=== PATIENT | female | born 1940 | race African-American/Black ===

== ENCOUNTER 2016-08-06 19:36 | Inpatient (IN) | payer MEDICARE, OTHER ==
[~2016-08-06] VITALS: Ht 167.6 cm; Wt 90.9 kg
[~2016-08-06 19:36] MED LIST: ALBU0.08 NEB; AMIO200T PO; ARIC10TA PO; ASPI-110 PO; BAZACRE TOP; CARV3.125 PO; DIFL100T PO; DULC10SU3 PR; DULC5TAB PO; FLEEENE3 PR; FURO1TAB60 PO; LOPE2TAB3 PO; LOSA25TA PO; LOVA40TA PO; MILKSUS PO; MULTTAB62 PO; NORC5TAB PO; NOVOINJ2 SQ; NOVOINJ3 SQ; NYST1000 SWISH-SWAL; POTA10CA PO; TYLE325T PO; ZOFR4TAB PO
[2016-08-06 19:37] VITALS: BP 180/80; PULSE 66; RESP 18; TEMP 98.2; O2SAT 97
[2016-08-06 19:43] VITALS: RESP 18; O2SAT 97
[2016-08-06] MEDS ORDERED: SODIUM CHLORIDE 0.9% FLUSH 5 ML FLUSH IVF PRN (19:45)
--- NOTE | 2016-08-06 19:49 | PD ---
HPI Chief Complaint: Syncope/Near-Syncope Time Seen by Provider: 19:41 Travel History International Travel<30 days: No Contact w/Intl Traveler<30days: No Traveled to known affect area: No History of Present Illness HPI The patient is 76 years old. She arrives from a cardiac rehabilitation center evidently recently undergone CABG. Over the last 3 days she has syncopized twice, both times while on the toilet. Per staff she "just slumped over." She notes what she thinks may have been some diaphoresis prior to the losses of consciousness. Otherwise she notes feeling asymptomatic prior to and after the syncope events. She has been feeling reasonably well/as expected since CABG procedure. Appetite and activity have been as expected as have been bowel and bladder habits. EMS notes significant personnel observed hypotension on scene with a systolic blood pressure of 74. EMS notes a blood pressure approximately 112 systolic on scene with a heart rate in the 80s. Fingerstick glucose was normal. The patient appeared to be in no distress. The bedside she has no specific complaint. PFSH Past Medical History Hx Anticoagulant Therapy: Yes (81 MG ASA) Autoimmune Disease: No Blood Disorders: No Heart Rhythm Problems: No Cancer: No Cardiovascular Problems: Yes (CABG) High Cholesterol: No Chemotherapy: No Chest Pain: No Congestive Heart Failure: No Cerebrovascular Accident: Yes Coronary Artery Disease: Yes Dementia: Yes Diabetes: Yes Diminished Hearing: No Endocrine: Yes (DIABETES) GERD: Yes Glaucoma: No Genitourinary: No Headaches: Yes Hepatitis: No Hiatal Hernia: No Hypertension: Yes Immune Disorder: No Musculoskeletal: Yes (ARTHRITIS right side) Psychiatric: No Reproductive: No Respiratory: No Myocardial Infarction: No Radiation Therapy: No Thyroid Disease: No Past Surgical History Abdominal Surgery: Yes (GALLBLADDER,LAP 1994) AICD: No Body Medical Devices: HARDWARE KNEE AND THIGH Cardiac Surgery: No Coronary Artery Bypass Graft: Yes Ear Surgery: No Endocrine Surgery: No Eye Surgery: Yes (CATARACTS 2003,RETINA LT EYE,LASER SURGERY BOTH EYES 2004) Genitourinary Surgery: No Gynecologic Surgery: Yes (3 D/C 30YRS AGO) Joint Replacement: No Oral Surgery: No Pacemaker: No Thoracic Surgery: No Other Surgery: Yes Social History Alcohol Use: No Tobacco Use: No Substance Use: No Allergies-Medications (Allergen,Severity, Reaction): Coded Allergies: Alayna (Verified Allergy, Severe, CONFUSION,SLUURED WORDS, 08/06/16) *MDRO Multi-Drug Resistant Organism (Verified Adverse Reaction, Unknown, ) MDR-k.pneumoniae (urine-07/04/16) Reported Meds & Prescriptions Reported Meds & Active Scripts Active Reported Carson (Hydrocodone-Acetaminophen) 5-325 mg Tab 1 Tab PO Q4H PRN Aspirin 81 Mg Tabdr 81 Mg PO DAILY Seroquel (Quetiapine Fumarate) 25 Mg Tab 25 Mg PO BID Santyl Topical (Collagenase) 250 Unit/Gm Oint 1 Applic TOPICAL DAILY Nystatin-Triamcinolone 100,000-0.1 Unit/Gm Cream 1 Applic TOPICAL BID Novolog Mix 70-30 FlexPen Inj (Insulin Aspart Protam-Asp 70-30 Inj) 300 Unit/3 Ml Pen 10 Units SQ BIDAC Loperamide (Loperamide HCl) 2 Mg Tab 2 Mg PO BID PRN 3 Days Zofran (Ondansetron HCl) 4 Mg Tab 4 Mg PO Q8HR PRN Multi-Vitamin/Minerals (Multiple Vitamins W/ Minerals) 1 Tab Tab 1 Tab PO DAILY Lovastatin 40 Mg Tab 40 Mg PO HS Aricept (Donepezil) 10 Mg Tab 10 Mg PO HS Losartan (Losartan Potassium) 25 Mg Tab 25 Mg PO DAILY Potassium Chloride ER (Potassium Chloride) 10 Meq Cap 20 Meq PO BID Lasix (Furosemide) 40 Mg Tab 40 Mg PO DAILY Coreg (Carvedilol) 3.125 Mg Tab 6.25 Mg PO BID Dulcolax DR (Bisacodyl) 5 Mg Tabdr 10 Mg PO DAILY PRN Albuterol Neb (Albuterol Sulfate) 2.5 Mg/3 Ml Neb 2.5 Mg NEB Q4HR PRN Tylenol (Acetaminophen) 325 Mg Tab 650 Mg PO Q4H PRN Milk of Magnesia Liq (Magnesium Hydroxide) 400 Mg/5 Ml Susp 30 Ml PO DIRECTED PRN Dulcolax Supp (Bisacodyl) 10 Mg Supp 10 Mg OK DAILY PRN Review of Systems Except as stated in HPI: all other systems reviewed are Neg Cardiovascular: Positive: Syncope Physical Exam Narrative GENERAL: Pleasant 76-year-old female well-nourished well-developed no acute distress SKIN: Warm and dry. Well-Approximated well healing midsternal surgical incision site. HEAD: Atraumatic. Normocephalic. EYES: Pupils equal and round. No scleral icterus. No injection or drainage. ENT: No nasal bleeding or discharge. Mucous membranes pink and moist. NECK: Trachea midline. No JVD. CARDIOVASCULAR: Regular rate and rhythm. No murmur appreciated. RESPIRATORY: No accessory muscle use. Clear to auscultation. Breath sounds equal bilaterally. GASTROINTESTINAL: Abdomen soft, non-tender, nondistended. Hepatic and splenic margins not palpable. MUSCULOSKELETAL: No obvious deformities. No clubbing. No cyanosis. No edema. NEUROLOGICAL: Awake and alert. No obvious cranial nerve deficits. Motor grossly within normal limits. Normal speech. PSYCHIATRIC: Appropriate mood and affect; insight and judgment normal. Data Data Last Documented VS Vital Signs Date Time Temp Pulse Resp B/P Pulse Ox O2 Delivery O2 Flow Rate FiO2 08/06/16 19:43 18 97 Room Air 08/06/16 19:37 98.2 66 180/80 VS reviewed Orders Electrocardiogram (08/06/16 19:41) Basic Metabolic Panel (Bmp) (08/06/16 19:41) Complete Blood Count With Diff (08/06/16 19:41) Magnesium (Mg) (08/06/16 19:41) B-Type Natriuretic Peptide (08/06/16 19:41) Troponin I (08/06/16 19:41) Act Partial Throm Time (Ptt) (08/06/16 19:41) Prothrombin Time / Inr (Pt) (08/06/16 19:41) Urinalysis - C+S If Indicated (08/06/16 19:41) Chest, Single Ap (08/06/16 19:41) Ecg Monitoring (08/06/16 19:41) Iv Access Insert/Monitor (08/06/16 19:41) Oximetry (08/06/16 19:41) Sodium Chloride 0.9% Flush (Ns Flush) (08/06/16 19:45) Protein Corrected Calcium(Pcc) (08/06/16 19:45) Magnesium Sulfate 1 Gm Premix (Magnesium (08/06/16 21:45) Calcium Gluconate Inj (Calcium Gluconate (08/06/16 21:45) Sodium Chlor 0.45%... W/Sodium Bicarbona (08/06/16 21:45) Admit Order (Ed Use Only) (08/06/16 21:42) Labs Laboratory Tests Test 08/06/16 19:45 White Blood Count 7.1 TH/MM3 Red Blood Count 3.93 MIL/MM3 Hemoglobin 11.5 GM/DL Hematocrit 35.6 % Mean Corpuscular Volume 90.6 FL Mean Corpuscular Hemoglobin 29.4 PG Mean Corpuscular Hemoglobin 32.4 % Concent Red Cell Distribution Width 16.1 % Platelet Count 163 TH/MM3 Mean Platelet Volume 9.9 FL Neutrophils (%) (Auto) 61.1 % Lymphocytes (%) (Auto) 29.3 % Monocytes (%) (Auto) 7.4 % Eosinophils (%) (Auto) 1.4 % Basophils (%) (Auto) 0.8 % Neutrophils # (Auto) 4.3 TH/MM3 Lymphocytes # (Auto) 2.1 TH/MM3 Monocytes # (Auto) 0.5 TH/MM3 Eosinophils # (Auto) 0.1 TH/MM3 Basophils # (Auto) 0.1 TH/MM3 CBC Comment DIFF FINAL Differential Comment Prothrombin Time 11.4 SEC Prothromb Time International 1.0 RATIO Ratio Activated Partial 24.6 SEC Thromboplast Time Sodium Level 141 MEQ/L Potassium Level 3.8 MEQ/L Chloride Level 115 MEQ/L Carbon Dioxide Level 14.5 MEQ/L Anion Gap 12 MEQ/L Blood Urea Nitrogen 25 MG/DL Creatinine 2.19 MG/DL Estimat Glomerular Filtration 26 ML/MIN Rate Random Glucose 220 MG/DL Calcium Level 6.7 MG/DL Protein Corrected Calcium 7.2 MG/DL Magnesium Level 1.4 MG/DL Troponin I LESS THAN 0.02 NG/ML B-Type Natriuretic Peptide 48 PG/ML Total Protein 6.0 GM/DL [facility] Medical Decision Making Medical Screen Exam Complete: Yes Emergency Medical Condition: Yes Medical Record Reviewed: Yes Differential Diagnosis Arrhythmia, electrolyte imbalance, infection, PE, vasovagal type event Narrative Course The patient carries a few risk factors for adverse event related to syncope including a new left anterior fascicular block pattern and a T-wave inversions in precordial leads V4 V5 V6. Hypotension and diaphoresis associated with event are of concern. the bicarb, magnesium and calcium are markedly low as well. admission for monitoring, electrolyte replacement considered appropriate. CBC & BMP Diagram 08/06/16 19:45 Prot corrected calcium 7.2 Magnesium 1.4 BNP 48 Renal insufficiency stable EKG sinus, rate 65, LAFB, TWI V4-6, I and aVL CXR: NACPD Diagnosis Primary Impression: Syncopal episodes Qualified Code: R55 - Syncope, unspecified syncope type Additional Impressions: Hypocalcemia Hypomagnesemia Admitting Information Admitting Physician Requests: Observation Nacho Camacho MD Aug 06, 2016 19:49
[2016-08-06 19:59] LABS: AUTOMATED NEUTROPHIL # 4.3 TH/MM3 (1.8-7.7); BASOPHIL # 0.1 TH/MM3 (0-0.2); BASOPHIL % 0.8 % (0.0-2.0); EOSINOPHIL # 0.1 TH/MM3 (0-0.4); EOSINOPHIL % 1.4 % (0.0-4.0); HEMATOCRIT 35.6 % (35.0-46.0); HEMO FLAGS DIFF FINAL; LYMPH % 29.3 % (9.0-44.0); LYMPHOCYTE # 2.1 TH/MM3 (1.0-4.8); MEAN CELL VOLUME 90.6 FL (80.0-100.0); MEAN CORPUSCULAR HEMOGLOBIN 29.4 PG (27.0-34.0); MEAN CORPUSCULAR HGB CONC 32.4 % (32.0-36.0); MONO % 7.4 % (0.0-8.0); NEUT % 61.1 % (16.0-70.0); PLATELET COUNT 163 TH/MM3 (150-450); RED BLOOD COUNT 3.93 MIL/MM3 (4.00-5.30); RED CELL DISTRIBUTION WIDTH 16.1 % (11.6-17.2); WHITE BLOOD COUNT 7.1 TH/MM3 (4.0-11.0)
[2016-08-06] MEDS ORDERED: NORC5TAB PO (20:03)
[2016-08-06] MEDS ORDERED: SERO25TA PO (20:03)
[2016-08-06] MEDS ORDERED: NYSTCRE29 TOPICAL (20:03)
[2016-08-06] MEDS ORDERED: COLL30T TOPICAL (20:03)
[2016-08-06] MEDS ORDERED: ASPI1TAB69 PO (20:03)
--- NOTE | 2016-08-06 20:07 | RADRPT ---
EXAM DATE/TIME: 08/06/2016 19:51 [facility] COMPARISON: No previous studies available for comparison. INDICATIONS : Syncope MEDICAL HISTORY : Stroke. Hypoglycemic SURGICAL HISTORY : CABG. ENCOUNTER: Initial ACUITY: 1 day PAIN SCORE: 0/10 LOCATION: Bilateral chest FINDINGS: No infiltrate, effusion or pneumothorax demonstrated. Heart size stable, upper limits of normal. Thor acic aorta is tortuous. There's been a previous median sternotomy and coronary artery bypass graft op eration. CONCLUSION: No acute cardiopulmonary disease demonstrated. Ramone Pope MD on August 06, 2016 at 20:05 Board Certified Radiologist. This report was verified electronically.
[2016-08-06 20:19] LABS: APTT (PATIENT) 24.6 SEC (24.3-30.1); PROTHROMBIN TIME - PATIENT 11.4 SEC (9.8-11.6)
[2016-08-06 20:59] LABS: ANION GAP 12 MEQ/L (5-15)
[2016-08-06 21:00] VITALS: BP 181/79; PULSE 68; RESP 17; O2SAT 97
[2016-08-06 21:02] LABS: BICARBONATE 14.5 MEQ/L (21.0-32.0); BLOOD UREA NITROGEN 25 MG/DL (7-18); CHLORIDE 115 MEQ/L (98-107); GLOMERULAR FILTRATION RATE 26 ML/MIN (>89); MAGNESIUM 1.4 MG/DL (1.5-2.5); POTASSIUM 3.8 MEQ/L (3.5-5.1); SODIUM (NA) 141 MEQ/L (136-145)
[2016-08-06 21:19] LABS: CALCIUM-PROTEIN CORRECTED 7.2 MG/DL (8.5-10.1)
[2016-08-06] MEDS ORDERED: CALCIUM GLUCONATE INJ 1 GM in DEXTROSE 5% IN WATER 100ML INJ 100 ML IV ONE ×2 (21:45)
[2016-08-06] MEDS ORDERED: MAGNESIUM SULFATE 1 GM PREMIX 100 ML IV ONE (21:45)
[2016-08-06] MEDS ORDERED: SODIUM BICARBONATE 8.4% INJ 50 MEQ in SODIUM CHLOR 0.45% 1000 ML INJ 1,000 ML IV SCH (21:45)
[2016-08-06 23:00] VITALS: BP 162/69; PULSE 66; RESP 15; O2SAT 98
[2016-08-06] MEDS ORDERED: ONDANSETRON HCL 4 MG/2 ML VIAL IVP PRN (23:00)
[2016-08-06] MEDS ORDERED: NALOXONE HCL 0.4 MG/ML AMP IV PRN (23:00)
[2016-08-06] MEDS ORDERED: TEMAZEPAM 15 MG CAP PO PRN (23:00)
[2016-08-06] MEDS ORDERED: SODIUM CHLORIDE 0.9% FLUSH 5 ML FLUSH FLUSH PRN (23:00)
[2016-08-06] MEDS ORDERED: ACETAMINOPHEN 325 MG TAB PO PRN (23:00)
[2016-08-06] MEDS ORDERED: LOPERAMIDE HCL 2 MG CAP PO PRN (23:15)
[2016-08-06] MEDS ORDERED: ACETAMINOPHEN/HYDROcodone 325 MG/5 MG TAB PO PRN (23:15)
[2016-08-07] VITALS (26 sets, daily range): BP systolic 136–165; BP diastolic 65–80; PULSE 60–80; RESP 15–18; TEMP 97.3–98.7; O2SAT 98–100
[2016-08-07] MEDS: SODIUM CHLOR 0.9% 1000 ML INJ 1,000 ML IV SCH ×2 (00:01→08:56)
[2016-08-07 02:51] LABS: ALKALINE PHOSPHATASE 93 U/L (45-117); ALT (GPT) 20 U/L (10-53); ANION GAP 11 MEQ/L (5-15); AST (GOT) 21 U/L (15-37); BICARBONATE 18.2 MEQ/L (21.0-32.0); BLOOD UREA NITROGEN 29 MG/DL (7-18); CHLORIDE 112 MEQ/L (98-107); GLOMERULAR FILTRATION RATE 23 ML/MIN (>89); MAGNESIUM 1.9 MG/DL (1.5-2.5); SODIUM (NA) 141 MEQ/L (136-145); TOTAL BILIRUBIN ADULT 0.7 MG/DL (0.2-1.0)
[2016-08-07 02:52] LABS: CREATINE KINASE 69 U/L (26-192); POTASSIUM 4.6 MEQ/L (3.5-5.1)
[2016-08-07] MEDS: HEPARIN SODIUM - SQ 10,000 UNITS/ML VIAL SQ SCH ×3 (05:57→20:53)
[2016-08-07] MEDS ORDERED: [UNRECOGNIZED DRUG - OTHER] SQ SCH (07:00)
[2016-08-07] MEDS ORDERED: GLUCAGON 1 MG/ML VIAL OTHER PRN (07:45)
[2016-08-07] MEDS ORDERED: DEXTROSE 50% IN WATER 50 ML VIAL(D50) IV PUSH PRN (07:45)
[2016-08-07] MEDS: INSULIN ASPAR PROT 70/30 1,000 UNITS/10 ML VIAL SQ SCH ×2 (08:00→15:00)
[2016-08-07] MEDS: SODIUM CHLORIDE 0.9% FLUSH 5 ML FLUSH FLUSH SCH ×2 (09:00→20:53)
[2016-08-07] MEDS ORDERED: FUROSEMIDE 40 MG TAB PO SCH (09:00)
[2016-08-07] MEDS ORDERED: LOSARTAN 25 MG TAB PO SCH (09:00)
--- NOTE | 2016-08-07 09:08 | RADRPT ---
EXAM DATE/TIME: 08/07/2016 08:28 [facility] COMPARISON: CTA CAROTID ARTERIES W 3D RECON, May 23, 2015, 1:10. US CAROTID ARTERIES, May 21, 2015, 19:2 4. INDICATIONS : Syncope. MEDICAL HISTORY : Gastroesophageal reflux disease. CVA. Dementia. Coronary artery disease. Diabetes. SURGICAL HISTORY : CABG. Cholecystectomy. Eye surgery. Dilation and curettage. Orthopedic surgery, right leg. ENCOUNTER: Subsequent ACUITY: 1 day PAIN SCORE: 0/10 LOCATION: Bilateral neck PEAK SYSTOLIC VELOCITIES (cm/sec): ICA/CCA RATIO: Right: 1.5 Left: 1.0 ICA: Right: 82 Left: 74 CCA: Right: 55 Left: 73 ECA: Right: 264 Left: 110 VERTEBRAL: Right: 54 antegrade Left: 51 antegrade Elevated flow velocities and ICA/CCA ratios have been found to correlate with increased degrees of vessel stenosis, calculated as percentage of diameter relative to a normal segment of distal ICA/CCA FINDINGS: RIGHT CAROTID: No significant stenosis is visualized. The waveforms are within normal limits. LEFT CAROTID: No significant stenosis is visualized. The waveforms are within normal limits. VERTEBRAL ARTERIES: Antegrade flow is seen in both vertebral arteries. MISCELLANEOUS: None. CONCLUSION: 1. No evidence for hemodynamically significant stenosis of either internal carotid artery. There is m oderate plaque deposition at the bifurcations with elevated velocity in the right external carotid ar quinton suggesting a high grade ECA origin stenosis. 2. Antegrade flow in the bilateral vertebral arteries. Juvencio Hernandez MD on August 07, 2016 at 9:06 Board Certified Radiologist. This report was verified electronically.
[2016-08-07] MEDS: MULTIVITAMIN HEMATINIC THERAPEUTIC TAB PO SCH (10:13)
[2016-08-07] MEDS: ASPIRIN EC 81 MG TABEC PO SCH (10:13)
[2016-08-07] MEDS: QUEtiapine FUMARATE 25 MG TAB PO SCH ×2 (10:13→20:53)
[2016-08-07] MEDS: CARVEDILOL 3.125 MG TAB PO SCH ×2 (10:13→20:52)
[2016-08-07] MEDS: COLLAGENASE OINT 30 GM TUBE TOP SCH (10:14)
[2016-08-07 11:08] LABS: AUTOMATED NEUTROPHIL # 3.7 TH/MM3 (1.8-7.7); BASOPHIL # 0.1 TH/MM3 (0-0.2); BASOPHIL % 0.9 % (0.0-2.0); EOSINOPHIL # 0.2 TH/MM3 (0-0.4); EOSINOPHIL % 2.9 % (0.0-4.0); HEMATOCRIT 33.7 % (35.0-46.0); HEMO FLAGS DIFF FINAL; LYMPH % 36.7 % (9.0-44.0); LYMPHOCYTE # 2.5 TH/MM3 (1.0-4.8); MEAN CELL VOLUME 89.7 FL (80.0-100.0); MEAN CORPUSCULAR HEMOGLOBIN 29.2 PG (27.0-34.0); MEAN CORPUSCULAR HGB CONC 32.5 % (32.0-36.0); MONO % 5.3 % (0.0-8.0); NEUT % 54.2 % (16.0-70.0); PLATELET COUNT 156 TH/MM3 (150-450); RED BLOOD COUNT 3.75 MIL/MM3 (4.00-5.30); RED CELL DISTRIBUTION WIDTH 15.5 % (11.6-17.2); WHITE BLOOD COUNT 6.9 TH/MM3 (4.0-11.0)
[2016-08-07 11:36] LABS: CREATINE KINASE 48 U/L (26-192)
[2016-08-07] MEDS: INSULIN ASPART SUPPLEMENTAL SCALE SQ SCH ×3 (11:45→20:55)
--- NOTE | 2016-08-07 16:19 | HHI.HP ---
History of Present Illness Service INTERNAL MEDICINE Primary Care Physician EMILIANO SHOEMAKER M.D. Admission Diagnosis RECURRENT SYNCOPE. METABOLIC ACIDOSIS. ELECTROLYTE AND MINERAL IMBALANCE. Diagnoses: History of Present Illness This patient is a 76 year old female who has a history of being found with recurring episodes of "passing out'". She has not had any new change of medications or activities. She was in the bathroom with consideration of having a bowel movement when she passed out today. She did not have any loss of bowel or bladder function during the occurrence. She was then transported to the [facility] in this regard. She is found with EKG changes and laboratory abnormalities that warrant further investigation. She was stabilized and admitted for further work up and treatment. Review of Systems Cardiovascular: COMPLAINS OF: Syncope Past Family Social History Allergies: Coded Allergies: Talwin (Verified Allergy, Severe, CONFUSION,SLUURED WORDS, 08/06/16) *MDRO Multi-Drug Resistant Organism (Verified Adverse Reaction, Unknown, ) MDR-k.pneumoniae (urine-07/04/16) Past Medical History 1. Hypertension. 2. Coronary Artery Disease. 3. Hyperlipidemia. 4. Diabetes Mellitus, Type 2. 5. Osteoarthritis. 6. Dementia with Memory Loss. 7. Carotid Stenosis. Past Surgical History 1. Coronary Artery Bypass Graft Surgery. 2. ORIF of Right Femur. 3. Laparoscopic Cholecystectomy. 4. Bilateral Cataract Extractions. 5. Bilateral Carotid Artery Endarterectomy. Social History She is and lives at home with her . She most recently has been in [facility]. She is nonsmoking and does not drink alcohol. She makes no use of recreational drugs. Physical Exam Vital Signs Vital Signs Date Time Temp Pulse Resp B/P Pulse Ox O2 Delivery O2 Flow Rate FiO2 08/07/16 15:57 98.0 71 16 136/66 99 08/07/16 14:00 62 08/07/16 13:00 65 08/07/16 12:00 60 08/07/16 11:40 98.1 68 18 138/65 100 08/07/16 11:00 80 08/07/16 10:00 64 08/07/16 09:00 66 08/07/16 08:31 100 Room Air 08/07/16 08:04 97.3 71 18 159/80 100 08/07/16 08:00 72 08/07/16 07:00 80 08/07/16 06:00 71 08/07/16 05:00 80 08/07/16 04:00 68 08/07/16 03:52 98.7 72 18 165/80 99 08/07/16 03:11 71 08/07/16 00:00 66 15 159/72 98 Room Air 08/06/16 23:00 66 15 162/69 98 Room Air 08/06/16 21:00 68 17 181/79 97 Room Air 08/06/16 19:43 18 97 Room Air 08/06/16 19:37 98.2 66 18 180/80 97 Physical Exam GENERAL: This is a well-nourished, well-developed patient, in no apparent distress. SKIN: No rashes, ecchymoses or lesions. Cool and dry. HEAD: Atraumatic. Normocephalic. No temporal or scalp tenderness. EYES: Pupils equal round and reactive. Extraocular motions intact. No scleral icterus. No injection or drainage. ENT: Nose without bleeding, purulent drainage or septal hematoma. Throat without erythema, tonsillar hypertrophy or exudate. Uvula midline. Airway patent. NECK: Trachea midline. No JVD or lymphadenopathy. Supple, nontender, no meningeal signs. CARDIOVASCULAR: Regular rate and rhythm without murmurs, gallops, or rubs. RESPIRATORY: Clear to auscultation. Breath sounds equal bilaterally. No wheezes , rales, or rhonchi. GASTROINTESTINAL: Abdomen soft, non-tender, nondistended. No hepato-splenomegaly , or palpable masses. No guarding. MUSCULOSKELETAL: Extremities without clubbing, cyanosis, or edema. No joint tenderness, effusion, or edema noted. No calf tenderness. Negative Homans sign bilaterally. NEUROLOGICAL: Awake and alert. Cranial nerves II through XII intact. Motor and sensory grossly within normal limits. Five out of 5 muscle strength in all muscle groups. Normal speech. Laboratory Laboratory Tests Test 08/06/16 08/07/16 08/07/16 19:45 02:10 10:51 White Blood Count 7.1 6.9 Red Blood Count 3.93 3.75 Hemoglobin 11.5 11.0 Hematocrit 35.6 33.7 Mean Corpuscular Volume 90.6 89.7 Mean Corpuscular Hemoglobin 29.4 29.2 Mean Corpuscular Hemoglobin 32.4 32.5 Concent Red Cell Distribution Width 16.1 15.5 Platelet Count 163 156 Mean Platelet Volume 9.9 9.2 Neutrophils (%) (Auto) 61.1 54.2 Lymphocytes (%) (Auto) 29.3 36.7 Monocytes (%) (Auto) 7.4 5.3 Eosinophils (%) (Auto) 1.4 2.9 Basophils (%) (Auto) 0.8 0.9 Neutrophils # (Auto) 4.3 3.7 Lymphocytes # (Auto) 2.1 2.5 Monocytes # (Auto) 0.5 0.4 Eosinophils # (Auto) 0.1 0.2 Basophils # (Auto) 0.1 0.1 CBC Comment DIFF FINAL DIFF FINAL Differential Comment Prothrombin Time 11.4 Prothromb Time International 1.0 Ratio Activated Partial 24.6 Thromboplast Time Sodium Level 141 141 Potassium Level 3.8 4.6 Chloride Level 115 112 Carbon Dioxide Level 14.5 18.2 Anion Gap 12 11 Blood Urea Nitrogen 25 29 Creatinine 2.19 2.47 Estimat Glomerular Filtration 26 23 Rate Random Glucose 220 197 Calcium Level 6.7 7.9 Protein Corrected Calcium 7.2 Magnesium Level 1.4 1.9 Troponin I LESS THAN 0.02 0.02 LESS THAN 0.02 B-Type Natriuretic Peptide 48 Total Protein 6.0 6.3 Total Bilirubin 0.7 Aspartate Amino Transf 21 (AST/SGOT) Alanine Aminotransferase 20 (ALT/SGPT) Alkaline Phosphatase 93 Total Creatine Kinase 69 48 Albumin 2.6 Result Diagram: 08/07/16 1051 08/07/16 0210 Assessment and Plan Assessment and Plan ASSESSMENT 1. Acute Syncope with Recurrence. 2. Acute Kidney Injury. 3. Coronary Artery Disease. 4. Hypertension. 5. Hyperlipidemia. 6. Diabetes Mellitus, Type 2. 7. Advanced Osteoarthritis. 8. Dementia with Memory Loss. 9. 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 PLAN 1. Admit to the hospital on Telemetry. 2. Consultation to Cardiology. 3. Consultation to Nephrology. 4. Consultation to Neurology. 5. Follow up laboratory assessment. 6. Continue Home Medications, as needed. 7. DVT and PE prophylaxis. Emiliano Shoemaker MD Aug 07, 2016 16:19
--- NOTE | 2016-08-07 16:39 | PD.CONS ---
HPI Service Nephrology Consult Requested By Dr. Enriquez Reason for Consult PRISCILA Primary Care Physician Dr. Shoemaker History of Present Illness The patient is a 76 yo AA female who was brought in via EMS from [facility] rehab yesterday for syncopal event x2. Remembers being on toilet for both events, but does not recall any precipitating events nor actual LOC. Says that she has had significant diarrhea multiple times daily for the past month. Denies any vomiting or nausea. present and also endorses that she has had very little appetite and poor oral intake. EMS reports that her SBP was in the 70s on arrival. She underwent 3-vessel CABG on 06/16/[address] Solorzano at [facility] with pre- procedural SCr at 0.75 (which appears to be her baseline dating back to the early ). Discharge on 06/19/16 level was 0.83. She had a UTI on discharge and was on Gentamicin 100mg IM daily x10 days as outpatient at [facility]. Therapeutic levels drawn at [facility] and reported here were all within acceptable range. Had ED visit at this facility on 07/04/16 for hypoglycemia and SCr at that time was 2.15 Returned to [facility] on 07/06 with chest discomfort and was dx at that time with pericardial effusion thought to be related to recent CABG. Conservative management was recommended. Admitting SCr on 07/06/16 was 1.48 and discharge in 07/09 was 1.43. Admitting SCr on 08/06/15 was 2.19 that worsened to 2.47 at time of consult PMHx includes DM & HTN for >10 years. Has never been made aware of renal decline. Admits to occasionally using Aleve or Advil at home for headaches, but not everyday. Home medication includes Lasix 40mg QD, but she is not sure why she takes this. Denies any CHF (echo from [facility] on 07/06/16 shows preserved EF of 55-60%) Pt is a questionable historian. (Samaria Hanks) Review of Systems Constitutional: COMPLAINS OF: Dizziness, Change in appetite Gastrointestinal: COMPLAINS OF: Diarrhea (Samaria Hanks) Past Family Social History Allergies: Coded Allergies: Talwin (Verified Allergy, Severe, CONFUSION,SLUURED WORDS, 08/06/16) *MDRO Multi-Drug Resistant Organism (Verified Adverse Reaction, Unknown, ) MDR-k.pneumoniae (urine-07/04/16) Past Medical History CAD recent CABG CVA DM x15 years HTN x15 years HLD ? Dementia Past Surgical History CABG (? June) Lap Enena Cataract repair L CEA 05/28/15 Reported Medications Reported Meds & Active Scripts Active Reported [place] (Hydrocodone-Acetaminophen) 5-325 mg Tab 1 Tab PO Q4H PRN Aspirin 81 Mg Tabdr 81 Mg PO DAILY Seroquel (Quetiapine Fumarate) 25 Mg Tab 25 Mg PO BID Santyl Topical (Collagenase) 250 Unit/Gm Oint 1 Applic TOPICAL DAILY Nystatin-Triamcinolone 100,000-0.1 Unit/Gm Cream 1 Applic TOPICAL BID Novolog Mix 70-30 FlexPen Inj (Insulin Aspart Protam-Asp 70-30 Inj) 300 Unit/3 Ml Pen 10 Units SQ BIDAC Loperamide (Loperamide HCl) 2 Mg Tab 2 Mg PO BID PRN 3 Days Zofran (Ondansetron HCl) 4 Mg Tab 4 Mg PO Q8HR PRN Multi-Vitamin/Minerals (Multiple Vitamins W/ Minerals) 1 Tab Tab 1 Tab PO DAILY Lovastatin 40 Mg Tab 40 Mg PO HS Aricept (Donepezil) 10 Mg Tab 10 Mg PO HS Losartan (Losartan Potassium) 25 Mg Tab 25 Mg PO DAILY Potassium Chloride ER (Potassium Chloride) 10 Meq Cap 20 Meq PO BID Lasix (Furosemide) 40 Mg Tab 40 Mg PO DAILY Coreg (Carvedilol) 3.125 Mg Tab 6.25 Mg PO BID Dulcolax DR (Bisacodyl) 5 Mg Tabdr 10 Mg PO DAILY PRN Albuterol Neb (Albuterol Sulfate) 2.5 Mg/3 Ml Neb 2.5 Mg NEB Q4HR PRN Tylenol (Acetaminophen) 325 Mg Tab 650 Mg PO Q4H PRN Milk of Magnesia Liq (Magnesium Hydroxide) 400 Mg/5 Ml Susp 30 Ml PO DIRECTED PRN Dulcolax Supp (Bisacodyl) 10 Mg Supp 10 Mg [place] DAILY PRN Active Ordered Medications Current Medications Medications (Trade) Dose Ordered Sig/Harleen Route Start Time Stop Time Status Last Admin (NS 1000 ml Inj) 1,000 ml @ 100 mls/hr Q10H IV 08/06/16 22:56 08/07/16 08:56 (NS Flush) 2 ml UNSCH PRN FLUSH 08/06/16 23:00 (NS Flush) 2 ml BID FLUSH 08/07/16 09:00 (Tylenol) 650 mg Q4H PRN PO 08/06/16 23:00 (Zofran Inj) 4 mg Q6H PRN IVP 08/06/16 23:00 (Restoril) 15 mg HS PRN PO 08/06/16 23:00 (Heparin Inj) 5,000 units Q8HR SQ 08/07/16 06:00 08/07/16 05:57 (Narcan Inj) 0.4 mg UNSCH PRN IV 08/06/16 23:00 (Ecotrin Ec) 81 mg DAILY PO 08/07/16 09:00 08/07/16 10:13 (Coreg) 6.25 mg BID PO 08/07/16 09:00 08/07/16 10:13 (Santyl Oint) 1 applic DAILY TOP 08/07/16 09:00 08/07/16 10:14 (Aricept) 10 mg HS PO 08/07/16 21:00 (Lasix) 40 mg DAILY PO 08/07/16 09:00 08/07/16 10:12 ([place] 5-325 Mg) 1 tab Q4H PRN PO 08/06/16 23:15 (Imodium) 2 mg BID PRN PO 08/06/16 23:15 (Cozaar) 25 mg DAILY PO 08/07/16 09:00 08/07/16 10:13 (Pravachol) 40 mg HS PO 08/07/16 21:00 (Theragran Hematinic) 1 tab DAILY PO 08/07/16 09:00 08/07/16 10:13 (SEROquel) 25 mg BID PO 08/07/16 09:00 08/07/16 10:13 (NovoLOG MIX 70/ 30 INJ) 10 units DAILY@08,15 SQ 08/07/16 08:00 08/07/16 08:00 (D50w (Vial) Inj) 25 ml UNSCH PRN IV PUSH 08/07/16 07:45 (Glucagon Inj) 1 mg UNSCH PRN OTHER 08/07/16 07:45 Family History Noncontributory Social History Living at [facility] for the present. Denies EtOH Denies tobacco use Denies illicit drug use (Samaria Hanks) Physical Exam Vital Signs Vital Signs Date Time Temp Pulse Resp B/P Pulse Ox O2 Delivery O2 Flow Rate FiO2 08/07/16 14:00 62 08/07/16 13:00 65 08/07/16 12:00 60 08/07/16 11:40 98.1 68 18 138/65 100 08/07/16 11:00 80 08/07/16 10:00 64 08/07/16 09:00 66 08/07/16 08:31 100 Room Air 08/07/16 08:04 97.3 71 18 159/80 100 08/07/16 08:00 72 08/07/16 07:00 80 08/07/16 06:00 71 08/07/16 05:00 80 08/07/16 04:00 68 08/07/16 03:52 98.7 72 18 165/80 99 08/07/16 03:11 71 08/07/16 00:00 66 15 159/72 98 Room Air 08/06/16 23:00 66 15 162/69 98 Room Air 08/06/16 21:00 68 17 181/79 97 Room Air 08/06/16 19:43 18 97 Room Air 08/06/16 19:37 98.2 66 18 180/80 97 Physical Exam GENERAL: Laying in bed. Comfortable. SKIN: Warm and dry. HEAD: Atraumatic. Normocephalic. EYES: Pupils equal and round. No scleral icterus. No injection or drainage. ENT: No nasal bleeding or discharge. Mucous membranes pink and moist. NECK: Trachea midline. No JVD. CARDIOVASCULAR: Regular rate and rhythm. RESPIRATORY: No accessory muscle use. Clear to auscultation. Breath sounds equal bilaterally. GASTROINTESTINAL: Abdomen soft, non-tender, nondistended. Hepatic and splenic margins not palpable. MUSCULOSKELETAL: Extremities without clubbing, cyanosis, or edema. No obvious deformities. NEUROLOGICAL: Awake and alert. Normal speech. PSYCHIATRIC: Appropriate mood and affect; insight and judgment normal. Laboratory Laboratory Tests Test 08/06/16 08/07/16 08/07/16 19:45 02:10 10:51 White Blood Count 7.1 6.9 Red Blood Count 3.93 3.75 Hemoglobin 11.5 11.0 Hematocrit 35.6 33.7 Mean Corpuscular Volume 90.6 89.7 Mean Corpuscular Hemoglobin 29.4 29.2 Mean Corpuscular Hemoglobin 32.4 32.5 Concent Red Cell Distribution Width 16.1 15.5 Platelet Count 163 156 Mean Platelet Volume 9.9 9.2 Neutrophils (%) (Auto) 61.1 54.2 Lymphocytes (%) (Auto) 29.3 36.7 Monocytes (%) (Auto) 7.4 5.3 Eosinophils (%) (Auto) 1.4 2.9 Basophils (%) (Auto) 0.8 0.9 Neutrophils # (Auto) 4.3 3.7 Lymphocytes # (Auto) 2.1 2.5 Monocytes # (Auto) 0.5 0.4 Eosinophils # (Auto) 0.1 0.2 Basophils # (Auto) 0.1 0.1 CBC Comment DIFF FINAL DIFF FINAL Differential Comment Prothrombin Time 11.4 Prothromb Time International 1.0 Ratio Activated Partial 24.6 Thromboplast Time Sodium Level 141 141 Potassium Level 3.8 4.6 Chloride Level 115 112 Carbon Dioxide Level 14.5 18.2 Anion Gap 12 11 Blood Urea Nitrogen 25 29 Creatinine 2.19 2.47 Estimat Glomerular Filtration 26 23 Rate Random Glucose 220 197 Calcium Level 6.7 7.9 Protein Corrected Calcium 7.2 Magnesium Level 1.4 1.9 Troponin I LESS THAN 0.02 0.02 LESS THAN 0.02 B-Type Natriuretic Peptide 48 Total Protein 6.0 6.3 Total Bilirubin 0.7 Aspartate Amino Transf 21 (AST/SGOT) Alanine Aminotransferase 20 (ALT/SGPT) Alkaline Phosphatase 93 Total Creatine Kinase 69 48 Albumin 2.6 (Samaria Hnaks) Result Diagram: 08/07/16 1051 08/07/16 0210 Imaging Last Impressions Chest X-Ray 08/06/16 1941 Signed Impressions: Service Date/Time: Saturday, August 06, 2016 19:51 - CONCLUSION: No acute cardiopulmonary disease demonstrated. Ramone Pope MD (Samaria Hanks) Assessment and Plan Problem List: (1) Acute renal insufficiency Plan: ARF likely multifactorial: decline occurred initially s/p CABG that worsened with Gentamicin administration. She reported significant diarrhea and poor oral intake so there is also a concern for intravascular volume depletion. She has been on diuretics and an ARB throughout which can also worsen renal functions in the setting of dehydration. It appears that she has an ATN from the aforementioned. Change IVF to 1/2NS with bicarb at 100/hr. Hold Lasix and Losartan. Will check renal US to r/o occult obstruction. Will follow with labs in the AM. Hopefully her renal functions will respond to IV hydration. Remains to be seen , however, where renal functions will stabilize. Medications should be adjusted for the patient's renal decline. Avoid nephrotoxic medications including NSAIDs and iodinated contrast dyes. Avoid gadolinium when eGFR <30 (2) Syncope Plan: Uncertain etiology. Could be related to dehydration. Work up as per primary. (3) Diarrhea Plan: Mgmt deferred to primary. May benefit from GI consult or screening for C diff given her reported profuse diarrhea. (4) Hypocalcemia Plan: Received IV calcium gluconate. Monitor. (5) Hypomagnesemia Plan: Received IV mag. Repeat level in the AM (6) HTN (hypertension) Plan: Hold Losartan. May need another antihypertensive agent if BP should rise. (7) DM (diabetes mellitus) Plan: Mgmt as per primary (Samaria Hanks) Assessment and Plan The exam, history, and the medical decision-making described in the above note were completed with the assistance of the PA-C. I reviewed and agree with the findings presented. (Nubia Luis MD) Samaria Hanks Aug 07, 2016 16:39 Nubia Luis MD Aug 10, 2016 16:10
[2016-08-07] MEDS: SODIUM BICARBONATE 8.4% INJ 50 MEQ in SODIUM CHLOR 0.45% 1000 ML INJ 1,000 ML IV SCH (18:00)
--- NOTE | 2016-08-07 18:23 | EKG ---
Date Performed: 08/06/2016 Time Performed: 20:17:20 PTAGE: 76 years EKG: Sinus rhythm WITH FIRST DEGREE AV BLOCK LEFT ANTERIOR FASCICULAR BLOCK NONSPECIFIC T-WAVE ABNORMALITY Since previ ous tracing, no significant change noted ABNORMAL ECG PREVIOUS TRACING : 07/04/2016 16.16 DOCTOR: Eloina Glez Interpretating Date/Time 08/07/2016 18:21:44
--- NOTE | 2016-08-07 18:23 | EKG ---
Date Performed: 08/07/2016 Time Performed: 02:35:26 PTAGE: 76 years EKG: Sinus rhythm WITH FIRST DEGREE AV BLOCK LEFT ANTERIOR FASCICULAR BLOCK NONSPECIFIC T-WAVE ABNORMALITY Since previ ous tracing, no significant change noted ABNORMAL ECG PREVIOUS TRACING : 08/06/2016 20.17 DOCTOR: Eloina Glez Interpretating Date/Time 08/07/2016 18:21:57
--- NOTE | 2016-08-07 18:23 | EKG ---
Date Performed: 08/07/2016 Time Performed: 05:54:12 PTAGE: 76 years EKG: Sinus rhythm with borderline 1st degree A-V block Consider left atrial abnormality Left axis deviation Anterolate ral T wave changes are nonspecific Since previous tracing, no significant change noted Abnormal ECG PREVIOUS TRACING : 08/07/2016 02.35 DOCTOR: Eloina Glez Interpretating Date/Time 08/07/2016 18:22:12
[2016-08-07] MEDS: DONEPEZIL HCL 5 MG TAB PO SCH (20:52)
[2016-08-07] MEDS: PRAVASTATIN SOD 40 MG TAB PO SCH (20:52)
[2016-08-08] VITALS (25 sets, daily range): BP systolic 114–156; BP diastolic 56–77; PULSE 61–88; RESP 16–20; TEMP 98.1–99; O2SAT 97–98
[2016-08-08] MEDS: SODIUM BICARBONATE 8.4% INJ 50 MEQ in SODIUM CHLOR 0.45% 1000 ML INJ 1,000 ML IV SCH ×2 (05:45→21:18)
[2016-08-08] MEDS: HEPARIN SODIUM - SQ 10,000 UNITS/ML VIAL SQ SCH ×3 (05:46→21:17)
[2016-08-08] MEDS: INSULIN ASPART SUPPLEMENTAL SCALE SQ SCH ×4 (05:47→21:00)
[2016-08-08 07:04] LABS: HEMATOCRIT 31.3 % (35.0-46.0); MEAN CELL VOLUME 88.5 FL (80.0-100.0); MEAN CORPUSCULAR HEMOGLOBIN 29.2 PG (27.0-34.0); PLATELET COUNT 146 TH/MM3 (150-450); RED BLOOD COUNT 3.53 MIL/MM3 (4.00-5.30); RED CELL DISTRIBUTION WIDTH 15.6 % (11.6-17.2); REVIEW FLAG FINAL; WHITE BLOOD COUNT 5.6 TH/MM3 (4.0-11.0)
[2016-08-08 07:33] LABS: BICARBONATE 21.8 MEQ/L (21.0-32.0); POTASSIUM 3.7 MEQ/L (3.5-5.1)
[2016-08-08] MEDS: INSULIN ASPAR PROT 70/30 1,000 UNITS/10 ML VIAL SQ SCH ×2 (08:00→15:00)
--- NOTE | 2016-08-08 08:11 | PD.CONS ---
HPI Service CV Consult Requested By Reason for Consult syncope Primary Care Physician Unknown History of Present Illness Here with CAD s/p 3 vessel CABG 06/16/16, type 2 diabetes, HTN and hyperlipidemia. She is admitted for two syncopal episodes at rehab both while sitting on a toilet. She denies any prodrome. She denies any loss of bowel or bladder control. She denies any chest pain, shortness of breath or palpitations (Geovani Levine) Review of Systems Consitutional: DENIES: Fatigue, Fever, Chills, Weight gain, Weight loss Eyes: DENIES: Amaurosis Fugax, Change in vision HEENT: DENIES: Lightheadedness, Change in hearing Respiratory: DENIES: See HPI, Cough, Snoring, Shortness of breath, Wheezing, Sputum production Cardiovascular: COMPLAINS OF: See HPI Gastrointestinal: DENIES: Nausea, Vomiting, Change in bowel habits, Reflux, Bloody stools, Melena Genitourinary: DENIES: Urinary incontinence, Difficulty voiding Integumentary: DENIES: Rash Neurologic: DENIES: Tingling or numbness, Memory problems, Poor Balance, Stroke symptoms Musculoskeletal: DENIES: Joint pain, Muscle pain, Limited range of motion, Back pain Psychiatric: COMPLAINS OF: Anxiety, Depression, Sleep disturbances Hematologic: DENIES: Bruising tendencies, Bleeding tendencies Endocrine: DENIES: Weight gain, Weight loss, Thyroid disease (Geovani Levine ) Past Family Social History Allergies: Coded Allergies: Talwin (Verified Allergy, Severe, CONFUSION,SLUURED WORDS, 08/06/16) *MDRO Multi-Drug Resistant Organism (Verified Adverse Reaction, Unknown, ) MDR-k.pneumoniae (urine-07/04/16) Past Medical History see HPI CVA ? dementia Past Surgical History Lap Neena Cataract repair L CEA 05/28/15 Reported Medications [place] (Hydrocodone-Acetaminophen) 5-325 mg Tab 1 Tab PO Q4H PRN Aspirin 81 Mg Tabdr 81 Mg PO DAILY Seroquel (Quetiapine Fumarate) 25 Mg Tab 25 Mg PO BID Santyl Topical (Collagenase) 250 Unit/Gm Oint 1 Applic TOPICAL DAILY Nystatin-Triamcinolone 100,000-0.1 Unit/Gm Cream 1 Applic TOPICAL BID Novolog Mix 70-30 FlexPen Inj (Insulin Aspart Protam-Asp 70-30 Inj) 300 Unit/3 Ml Pen 10 Units SQ BIDAC Loperamide (Loperamide HCl) 2 Mg Tab 2 Mg PO BID PRN 3 Days Zofran (Ondansetron HCl) 4 Mg Tab 4 Mg PO Q8HR PRN Multi-Vitamin/Minerals (Multiple Vitamins W/ Minerals) 1 Tab Tab 1 Tab PO DAILY Lovastatin 40 Mg Tab 40 Mg PO HS Aricept (Donepezil) 10 Mg Tab 10 Mg PO HS Losartan (Losartan Potassium) 25 Mg Tab 25 Mg PO DAILY Potassium Chloride ER (Potassium Chloride) 10 Meq Cap 20 Meq PO BID Lasix (Furosemide) 40 Mg Tab 40 Mg PO DAILY Coreg (Carvedilol) 3.125 Mg Tab 6.25 Mg PO BID Dulcolax DR (Bisacodyl) 5 Mg Tabdr 10 Mg PO DAILY PRN Albuterol Neb (Albuterol Sulfate) 2.5 Mg/3 Ml Neb 2.5 Mg NEB Q4HR PRN Tylenol (Acetaminophen) 325 Mg Tab 650 Mg PO Q4H PRN Milk of Magnesia Liq (Magnesium Hydroxide) 400 Mg/5 Ml Susp 30 Ml PO DIRECTED PRN Dulcolax Supp (Bisacodyl) [address] DAILY PRN Family History noncontributory Social History denies smoking, alcohol or substance abuse (Geovani Levine) Physical Exam Vital Signs Vital Signs Date Time Temp Pulse Resp B/P Pulse Ox O2 Delivery O2 Flow Rate FiO2 08/08/16 06:00 69 08/08/16 04:00 79 08/08/16 03:00 98.4 70 16 143/73 97 08/08/16 03:00 63 08/08/16 02:00 68 08/08/16 01:00 61 08/08/16 00:00 66 08/07/16 23:00 98.1 76 17 136/67 98 08/07/16 23:00 69 08/07/16 22:00 66 08/07/16 21:00 74 08/07/16 20:00 73 08/07/16 19:00 69 08/07/16 19:00 99 Room Air 08/07/16 19:00 98.3 71 16 149/75 99 08/07/16 18:00 72 08/07/16 17:00 67 08/07/16 16:00 73 08/07/16 15:57 98.0 71 16 136/66 99 08/07/16 15:00 80 08/07/16 14:00 62 08/07/16 13:00 65 08/07/16 12:00 60 08/07/16 11:40 98.1 68 18 138/65 100 08/07/16 11:00 80 08/07/16 10:00 64 08/07/16 09:00 66 08/07/16 08:31 100 Room Air 08/07/16 08:04 97.3 71 18 159/80 100 08/07/16 08:00 72 Physical Exam GENERAL: Well-nourished, well-developed patient in no apparent distress. NECK: No JVD. No carotid bruit. CARDIOVASCULAR: Regular rate and rhythm. S1/S2 no murmur, rub, or gallop. RESPIRATORY: No accessory muscle use. Clear to auscultation. Breath sounds equal bilaterally. GASTROINTESTINAL: Abdomen soft, non-tender, nondistended. MUSCULOSKELETAL: Extremities without clubbing, cyanosis, or edema. Laboratory Laboratory Tests Test 08/07/16 08/07/16 08/08/16 10:51 20:29 05:55 White Blood Count 6.9 5.6 Red Blood Count 3.75 3.53 Hemoglobin 11.0 10.3 Hematocrit 33.7 31.3 Mean Corpuscular Volume 89.7 88.5 Mean Corpuscular Hemoglobin 29.2 29.2 Mean Corpuscular Hemoglobin 32.5 33.0 Concent Red Cell Distribution Width 15.5 15.6 Platelet Count 156 146 Mean Platelet Volume 9.2 9.8 Neutrophils (%) (Auto) 54.2 Lymphocytes (%) (Auto) 36.7 Monocytes (%) (Auto) 5.3 Eosinophils (%) (Auto) 2.9 Basophils (%) (Auto) 0.9 Neutrophils # (Auto) 3.7 Lymphocytes # (Auto) 2.5 Monocytes # (Auto) 0.4 Eosinophils # (Auto) 0.2 Basophils # (Auto) 0.1 CBC Comment DIFF FINAL Differential Comment Total Creatine Kinase 48 Troponin I LESS THAN 0.02 25-Hydroxy Vitamin D Total 19.5 Parathyroid Hormone (Intact) 156.3 Sodium Level 142 Potassium Level 3.7 Chloride Level 108 Carbon Dioxide Level 21.8 Anion Gap 12 Blood Urea Nitrogen 27 Creatinine 2.10 Estimat Glomerular Filtration 28 Rate Random Glucose 108 Calcium Level 8.8 Phosphorus Level 3.5 Albumin 2.9 (Geovani Levine) Result Diagram: 08/08/1655 08/08/1655 Assessment and Plan Problem List: (1) Syncope (2) HTN (hypertension) Assessment and Plan syncope - ECG shows NS ST changes, review of telemetry shows no significant arrhythmia. She has had no recurrence here in the hospital. We will get 2D echo and go from there HTN - well controlled (Geovani Levine) Assessment and Plan I suspect micturition induced syncope no arrhythmia prodrome recent CABG with Dr. Blanc at [facility] (notes printed and put in chart) No EF reported 2d echo DC planning after echo. outpatient holter (Jay Pearce MD) Geovani Levine Aug 08, 2016 08:11 Jay Pearce MD Aug 08, 2016 11:10
[2016-08-08] MEDS: CARVEDILOL 3.125 MG TAB PO SCH ×2 (08:56→21:17)
[2016-08-08] MEDS: MULTIVITAMIN HEMATINIC THERAPEUTIC TAB PO SCH (08:56)
[2016-08-08] MEDS: ASPIRIN EC 81 MG TABEC PO SCH (08:56)
[2016-08-08] MEDS: QUEtiapine FUMARATE 25 MG TAB PO SCH ×2 (08:56→21:21)
[2016-08-08] MEDS: SODIUM CHLORIDE 0.9% FLUSH 5 ML FLUSH FLUSH SCH ×2 (08:56→21:18)
[2016-08-08] MEDS: COLLAGENASE OINT 30 GM TUBE TOP SCH (08:57)
--- NOTE | 2016-08-08 11:41 | RADRPT ---
EXAM DATE/TIME: 08/08/2016 09:46 [place] COMPARISON: No previous studies available for comparison. INDICATIONS : Increased BUN/Creatinine. MEDICAL HISTORY : Hypertension. Gastroesophageal reflux disease. Dementia. Syncope. Coronary artery disease. Diabetes . SURGICAL HISTORY : Cholecystectomy. Eye surgery. CABG. Orthopedic surgery, right leg. ENCOUNTER: Initial ACUITY: 1 day PAIN SCORE: 0/10 LOCATION: Bilateral flank MEASUREMENTS: RIGHT KIDNEY: 9.7 x 5.1 x 5.4 cm LEFT KIDNEY: 11.4 x 4.6 x 5.2 cm FINDINGS: Kidneys are mildly echogenic characteristic of mild medical renal disease. No hydronephrosis. No darien nephric fluid collections. Bladder not fully distended but otherwise unremarkable. CONCLUSION: 1. Mildly echogenic kidneys characteristic of mild medical renal disease. No acute findings. Dylan Butt MD on August 08, 2016 at 11:37 Board Certified Radiologist. This report was verified electronically.
--- NOTE | 2016-08-08 12:59 | HHI.NPPN ---
Subjective History of Present Illness The patient is a 76 yo AA female who was brought in via EMS from [facility] rehab yesterday for syncopal event x2. Remembers being on toilet for both events, but does not recall any precipitating events nor actual LOC. Says that she has had significant diarrhea multiple times daily for the past month. Denies any vomiting or nausea. present and also endorses that she has had very little appetite and poor oral intake. EMS reports that her SBP was in the 70s on arrival. She underwent 3-vessel CABG on 06/16/[address] Solorzano at [facility] with pre- procedural SCr at 0.75 (which appears to be her baseline dating back to the early ). Discharge on 06/19/16 level was 0.83. She had a UTI on discharge and was on Gentamicin 100mg IM daily x10 days as outpatient at [facility]. Therapeutic levels drawn at [facility] and reported here were all within acceptable range. Had ED visit at this facility on 07/04/16 for hypoglycemia and SCr at that time was 2.15 Returned to [facility] on 07/06 with chest discomfort and was dx at that time with pericardial effusion thought to be related to recent CABG. Conservative management was recommended. Admitting SCr on 07/06/16 was 1.48 and discharge in 07/09 was 1.43. Admitting SCr on 08/06/15 was 2.19 that worsened to 2.47 at time of consult PMHx includes DM & HTN for >10 years. Has never been made aware of renal decline. Admits to occasionally using Aleve or Advil at home for headaches, but not everyday. Home medication includes Lasix 40mg QD, but she is not sure why she takes this. Denies any CHF (echo from [facility] on 07/06/16 shows preserved EF of 55-60%) Pt is a questionable historian. Interval History The patient states she is feeling better today. No additional syncopal events. Diarrhea resolved. (Samaria Hanks) Review of Systems General General Remarks Feeling well. No complaints at the present. (Samaria Hanks) Objective Data Data 08/07/16 08/08/16 19:00 07:00 Intake Total 720 ml 1340 ml Output Total 200 ml 0 ml Balance 520 ml 1340 ml Intake Oral 720 ml 360 ml IV Total 980 ml Output Urine Total 200 ml 0 ml # Voids 2 0 # Bowel Movements 0 Vital Signs Date Time Temp Pulse Resp B/P Pulse Ox O2 Delivery O2 Flow Rate FiO2 08/08/16 08:15 98 Room Air 08/08/16 08:15 98.1 88 16 114/56 98 08/08/16 06:00 69 08/08/16 04:00 79 08/08/16 03:00 98.4 70 16 143/73 97 08/08/16 03:00 63 08/08/16 02:00 68 08/08/16 01:00 61 08/08/16 00:00 66 08/07/16 23:00 98.1 76 17 136/67 98 08/07/16 23:00 69 08/07/16 22:00 66 08/07/16 21:00 74 08/07/16 20:00 73 08/07/16 19:00 69 08/07/16 19:00 99 Room Air 08/07/16 19:00 98.3 71 16 149/75 99 08/07/16 18:00 72 08/07/16 17:00 67 08/07/16 16:00 73 08/07/16 15:57 98.0 71 16 136/66 99 08/07/16 15:00 80 08/07/16 14:00 62 08/07/16 13:00 65 (Samaria Hanks) -: 08/08/16 0555 08/08/16 0555 Imaging Last Impressions Carotid Artery Ultrasound 08/07/16 0000 Signed Impressions: Service Date/Time: Sunday, August 07, 2016 08:28 - CONCLUSION: 1. No evidence for hemodynamically significant stenosis of either internal carotid artery. There is moderate plaque deposition at the bifurcations with elevated velocity in the right external carotid artery suggesting a high grade ECA origin stenosis. 2. Antegrade flow in the bilateral vertebral arteries. Juvencio Hernandez MD Chest X-Ray 08/06/16 194 Signed Impressions: Service Date/Time: Saturday, August 06, 2016 19:51 - CONCLUSION: No acute cardiopulmonary disease demonstrated. Ramone Pope MD Medication Review Current Medications Medications (Trade) Dose Ordered Sig/Harleen Route Start Time Stop Time Status Last Admin (NS Flush) 2 ml UNSCH PRN FLUSH 08/06/16 23:00 (NS Flush) 2 ml BID FLUSH 08/07/16 09:00 08/08/16 08:56 (Tylenol) 650 mg Q4H PRN PO 08/06/16 23:00 (Zofran Inj) 4 mg Q6H PRN IVP 08/06/16 23:00 (Restoril) 15 mg HS PRN PO 08/06/16 23:00 (Heparin Inj) 5,000 units Q8HR SQ 08/07/16 06:00 08/08/16 05:46 (Narcan Inj) 0.4 mg UNSCH PRN IV 08/06/16 23:00 (Ecotrin Ec) 81 mg DAILY PO 08/07/16 09:00 08/08/16 08:56 (Coreg) 6.25 mg BID PO 08/07/16 09:00 08/08/16 08:56 (Santyl Oint) 1 applic DAILY TOP 08/07/16 09:00 08/08/16 08:57 (Aricept) 10 mg HS PO 08/07/16 21:00 08/07/16 20:52 (Redmon 5-325 Mg) 1 tab Q4H PRN PO 08/06/16 23:15 (Imodium) 2 mg BID PRN PO 08/06/16 23:15 (Pravachol) 40 mg HS PO 08/07/16 21:00 08/07/16 20:52 (Theragran Hematinic) 1 tab DAILY PO 08/07/16 09:00 08/08/16 08:56 (SEROquel) 25 mg BID PO 08/07/16 09:00 08/08/16 08:56 (NovoLOG MIX 70/ 30 INJ) 10 units DAILY@08,15 SQ 08/07/16 08:00 08/07/16 15:00 (D50w (Vial) Inj) 25 ml UNSCH PRN IV PUSH 08/07/16 07:45 Glucagon 1 mg 1 mg UNSCH PRN OTHER 08/07/16 07:45 (Sodium Bicarbonate 8.4% Inj/08/07 NS 1000 ml Inj) 1,050 ml @ 100 mls/hr [id number] IV 08/07/16 18:00 08/08/16 05:45 (Samaria Hanks) Physical Exam General Appearance: No Acute Distress, Comfortable (Samaria Hanks) Eyes Eye Exam: Pupils Equal, Pupils Reactive (Samaria Hanks) Throat Throat Exam: Oral Mucosa [place] & Moist (Samaria Hanks) Neck Neck Exam: Trachea Midline (Samaria Hanks) Pulmonary Resp Exam: Clear Bilaterally, Breath Sounds Equal, No Distress (Samaria Hanks) Cardiology CV Exam: Regular, Normal Sinus Rhythm (Samaria Hanks) Gastrointestinal/Abdomen GI Exam: Soft, Non-Tender (Samaria Hanks) Integumentary Skin Exam: Clear, Warm (Samaria Hanks) Extremeties Extremities Exam: No Edema (Samaria Hanks) Neurologic Neuro Exam: Alert, Awake (Samaria Hanks) Assessment/Plan Problem List: (1) Acute renal insufficiency Plan: ARF likely multifactorial: decline occurred initially s/p CABG that worsened with Gentamicin administration. She reported significant diarrhea and poor oral intake so there is also a concern for intravascular volume depletion. She has been on diuretics and an ARB throughout which can also worsen renal functions in the setting of dehydration. It appears that she has an ATN from the aforementioned. Renal functions improving. Continue on IVF Awaiting renal US report and UA Hopefully her renal functions will continue to respond to IV hydration. Remains to be seen, however, where renal functions will stabilize. Medications should be adjusted for the patient's renal decline. Avoid nephrotoxic medications including NSAIDs and iodinated contrast dyes. Avoid gadolinium when eGFR <30 (2) Syncope Plan: Uncertain etiology. Could be related to dehydration. Work up as per primary. (3) Diarrhea Plan: Mgmt deferred to primary. Reported today as resolved (4) Hypocalcemia Plan: Received IV calcium gluconate. Likely related to Vitamin D deficiency. Start on Vit D supplementation (5) Hypomagnesemia Plan: Repleted (6) HTN (hypertension) Plan: Hold Losartan. BP stable. Monitor. (7) DM (diabetes mellitus) Plan: Mgmt as per primary (Samaria Hanks) Plan The exam, history, and the medical decision-making described in the above note were completed with the assistance of the PALloyd. I reviewed and agree with the findings presented. I attest that I had a [id number] encounter with the patient on the same day, and personally performed and documented my assessment and findings in the medical record. (Nubia Luis MD) Samaria Hanks Aug 08, 2016 12:59 Nubia Luis MD Aug 10, 2016 16:12
--- NOTE | 2016-08-08 13:56 | MB ---
cc: FERNY GONZALEZ M.D. DATE OF CONSULTATION 08/08/2016 DATE OF 1940 AGE [age] years old. REASON FOR CONSULTATION Syncope. HISTORY OF PRESENT ILLNESS The patient is a pleasant 76-year-old woman who had a couple events of syncope while on the commode. She had gone to the bathroom to urinate. She does not state she felt bad, but found herself unresponsive, woke up and had another syncopal event while on the commode. As far as loss of bladder function, she states she was sitting on the toilet but no bowel movement. She did not bite her tongue. She was transported here to the hospital. She has no chest pain or shortness of breath. No weakness, numbness, tingling, no change in medications. She has some EKG changes that are going to be evaluated. She has been stable since she has been here, asking to go home. ALLERGIES TALWIN. MDRO. PAST MEDICAL HISTORY 1. Hypertension. 2. Coronary artery disease. 3. Hyperlipidemia. 4. Diabetes. 5. Osteoarthritis. 6. Some dementia noted. PAST SURGICAL HISTORY 1. Bypass. 2. ORIF right femur. 3. Laparoscopic cholecystectomy. 4. Bilateral cataracts. 5. Bilateral carotid endarterectomies SOCIAL HISTORY . Lives at home with her . Was recently in a senior living facility for rehab. She is a nonsmoker, does not drink. No recreational drugs. PHYSICAL EXAMINATION Vitals: Temperature 98.1, pulse 88, respiratory rate 16, blood pressure 114/56, sating 98% on room air. Neck: Supple. There are no carotid bruits noted. Heart: Regular. No murmurs. Lungs: Appear clear. NEUROLOGIC She is awake and alert, fluent. Pupils reactive. Face symmetrical. Tongue midline. No laceration of tongue. Motor: No drift. No tremor. No leg lag. Toes are downgoing. Reflexes are 1-2+. Normal sensory. Cerebellar normal. Gait is withheld at this time. LABS Reviewed. Her white count is 5.6, hemoglobin 10.3, platelets 146,000. Her coag panel is unremarkable. Chemistries she came in with a creatinine of 2.19, calcium of 6.7, BUN 25, CO2 14.5, BNP 48. Hr CK was 48. Currently her BUN is 27, creatinine 2.1, GFR of 28, albumin 2.9. Vitamin D is 19.5. PT is 156.3. IMAGING STUDIES Renal ultrasound was done. Mildly echogenic kidneys characteristic of mild medical renal disease but otherwise no acute findings. Carotid ultrasound - No evidence of any significant stenosis. There is some moderate plaque at the bifurcations of the right external carotid suggesting high-grade ECA origin stenosis. Chest x-ray - No acute disease. CONSULTANTS She was seen by Cardiology as well as Nephrology. IMPRESSION Syncope, etiology at this point unknown. Workup is ongoing. Cardiology has seen her as well. No significant arrhythmia thus far. RECOMMENDATIONS 1. I would obtain an echo. Continue her on aspirin. She may need to have an outpatient Holter or even a loop recorder if indicated. 2. Continue workup per Nephrology for her renal issues. 3. Replete her calcium and magnesium. 4. Further recommendations will be made accordingly. MD SUZANNE Nathan/LARISSA /1:22 PM /1:46 PM
[2016-08-08] MEDS: CHOLECALCIFEROL (VIT D3) 1000 UNIT TAB PO SCH (17:21)
[2016-08-08] MEDS: DONEPEZIL HCL 5 MG TAB PO SCH (21:17)
[2016-08-08] MEDS: PRAVASTATIN SOD 40 MG TAB PO SCH (21:17)
--- NOTE | 2016-08-08 23:47 | EKG ---
Date Performed: 08/07/2016 Time Performed: 23:09:28 PTAGE: 76 years EKG: Sinus rhythm with borderline 1st degree A-V block Consider left atrial abnormality Left axis deviation Anterolate ral T wave changes are nonspecific Abnormal ECG PREVIOUS TRACING : 08/07/2016 17.38 DOCTOR: Neil Gordillo Interpretating Date/Time 08/08/2016 23:42:11
--- NOTE | 2016-08-08 23:55 | EKG ---
Date Performed: 08/07/2016 Time Performed: 17:38:54 PTAGE: 76 years EKG: Sinus rhythm Left axis deviation Lateral T wave changes are nonspecific Abnormal ECG PREVIOUS TRACING : 08/07/2016 05.54 DOCTOR: Neil Gordillo Interpretating Date/Time 08/08/2016 23:47:59
[2016-08-09] VITALS (25 sets, daily range): BP systolic 119–159; BP diastolic 51–80; PULSE 66–108; RESP 18–20; TEMP 98.1–99; O2SAT 96–100
[2016-08-09] MEDS: HEPARIN SODIUM - SQ 10,000 UNITS/ML VIAL SQ SCH ×3 (05:06→21:21)
[2016-08-09] MEDS: INSULIN ASPART SUPPLEMENTAL SCALE SQ SCH ×4 (05:06→20:26)
--- NOTE | 2016-08-09 08:32 | PD.CARD.PN ---
Subjective Subjective Remarks no further syncope (Geovani Levine) Objective Vital Signs / I&O Vital Signs Date Time Temp Pulse Resp B/P Pulse Ox O2 Delivery O2 Flow Rate FiO2 08/09/16 07:00 98.1 76 18 156/76 98 08/09/16 06:00 73 08/09/16 05:00 80 08/09/16 04:00 Room Air 08/09/16 04:00 107 08/09/16 04:00 98.4 108 20 150/78 96 08/09/16 03:00 81 08/09/16 02:00 73 08/09/16 01:00 71 08/09/16 00:00 78 08/09/16 00:00 Room Air 08/09/16 00:00 98.2 80 18 138/64 98 08/08/16 23:00 75 08/08/16 22:00 75 08/08/16 21:00 73 08/08/16 20:00 98.4 74 20 141/63 98 08/08/16 20:00 Room Air 08/08/16 20:00 77 08/08/16 19:00 77 08/08/16 18:00 79 08/08/16 17:01 84 08/08/16 16:00 99.0 75 16 120/77 98 08/08/16 16:00 78 08/08/16 15:00 66 08/08/16 14:00 67 08/08/16 13:00 74 08/08/16 12:01 98.1 64 16 156/75 98 08/08/16 12:00 63 08/08/16 11:00 62 08/08/16 10:00 66 08/08/16 09:00 81 I/O 08/08/16 08/08/16 08/08/16 08/09/16 08/09/16 08/09/16 07:00 15:00 23:00 07:00 15:00 23:00 Intake Total 1220 ml 2768 ml 1040 ml Output Total 0 ml Balance 1220 ml 2768 ml 1040 ml Intake Oral 240 ml 960 ml 240 ml IV Total 980 ml 1808 ml 800 ml Output Urine Total 0 ml # Voids 0 4 2 # Bowel Movements 0 0 0 Physical Exam GENERAL: Well-nourished, well-developed patient in no apparent distress. NECK: No JVD. No carotid bruit. CARDIOVASCULAR: Regular rate and rhythm. S1/S2 no murmur, rub, or gallop. RESPIRATORY: No accessory muscle use. Clear to auscultation. Breath sounds equal bilaterally. GASTROINTESTINAL: Abdomen soft, non-tender, nondistended. MUSCULOSKELETAL: Extremities without clubbing, cyanosis, or edema. (Geovani Levine) Assessment and Plan Problem List: (1) Syncope (2) HTN (hypertension) Assessment and Plan syncope - Review of telemetry shows no significant arrhythmia. 2D pending HTN - consider increasing carvedilol to 12.5 mg BID (Geovani Levine) Assessment and Plan dc planning for today await echo results, if OK, then DC home (Jay Pearce MD) Geovani Levine Aug 09, 2016 08:32 Jay Pearce MD Aug 09, 2016 08:36
[2016-08-09 08:37] LABS: AUTOMATED NEUTROPHIL # 2.8 TH/MM3 (1.8-7.7); BASOPHIL # 0.1 TH/MM3 (0-0.2); BASOPHIL % 0.9 % (0.0-2.0); EOSINOPHIL # 0.3 TH/MM3 (0-0.4); EOSINOPHIL % 4.7 % (0.0-4.0); HEMO FLAGS DIFF FINAL; LYMPH % 35.7 % (9.0-44.0); LYMPHOCYTE # 1.9 TH/MM3 (1.0-4.8); MEAN CORPUSCULAR HEMOGLOBIN 29.1 PG (27.0-34.0); MEAN CORPUSCULAR HGB CONC 33.1 % (32.0-36.0); MONO % 6.9 % (0.0-8.0); NEUT % 51.8 % (16.0-70.0); PLATELET COUNT 153 TH/MM3 (150-450); RED BLOOD COUNT 3.87 MIL/MM3 (4.00-5.30); RED CELL DISTRIBUTION WIDTH 15.6 % (11.6-17.2); WHITE BLOOD COUNT 5.4 TH/MM3 (4.0-11.0)
[2016-08-09] MEDS: CARVEDILOL 3.125 MG TAB PO SCH ×2 (08:52→20:19)
[2016-08-09] MEDS: QUEtiapine FUMARATE 25 MG TAB PO SCH ×2 (08:52→20:18)
[2016-08-09] MEDS: MULTIVITAMIN HEMATINIC THERAPEUTIC TAB PO SCH (08:52)
[2016-08-09] MEDS: COLLAGENASE OINT 30 GM TUBE TOP SCH (08:53)
[2016-08-09] MEDS: CHOLECALCIFEROL (VIT D3) 1000 UNIT TAB PO SCH (08:53)
[2016-08-09] MEDS: ASPIRIN EC 81 MG TABEC PO SCH (08:53)
[2016-08-09] MEDS: INSULIN ASPAR PROT 70/30 1,000 UNITS/10 ML VIAL SQ SCH ×2 (08:53→15:26)
[2016-08-09] MEDS: SODIUM CHLORIDE 0.9% FLUSH 5 ML FLUSH FLUSH SCH ×2 (08:58→20:18)
[2016-08-09 09:04] LABS: BICARBONATE 25.1 MEQ/L (21.0-32.0); INDIRECT BILIRUBIN 0.8 MG/DL (0.0-0.8); MAGNESIUM 1.7 MG/DL (1.5-2.5); POTASSIUM 3.7 MEQ/L (3.5-5.1)
--- NOTE | 2016-08-09 09:51 | MG ---
cc: ERICA SOLIS M.D. Lab No: 17-11 Date: 08/08/2016 Age: Sex: F Race: TECHNIQUE 17 channel EEG. DESCRIPTION: The background rhythm is a symmetrical alpha rhythm, frequency is about 10 Hz, amplitude is about 10-20 microvolts. There is some muscle artifact present with occasional eye movement artifacts. During drowsiness there is mild slowing in the theta range. No epileptiform features are seen. No lateralizing features are identified. Photic stimulation does result in a normal symmetrical driving response. Hyperventilation was not done. INTERPRETATION Normal EEG. MD KENYATTA Elliott/FELECIAL /9:35 AM /9:48 AM
[2016-08-09] MEDS: SODIUM BICARBONATE 8.4% INJ 50 MEQ in SODIUM CHLOR 0.45% 1000 ML INJ 1,000 ML IV SCH ×2 (12:00→14:58)
--- NOTE | 2016-08-09 19:00 | HHI.NPPN ---
Subjective History of Present Illness The patient is a 76 yo AA female who was brought in via EMS from [facility] rehab yesterday for syncopal event x2. Remembers being on toilet for both events, but does not recall any precipitating events nor actual LOC. Says that she has had significant diarrhea multiple times daily for the past month. Denies any vomiting or nausea. present and also endorses that she has had very little appetite and poor oral intake. EMS reports that her SBP was in the 70s on arrival. She underwent 3-vessel CABG on 06/16/[address] Solorzano at [facility] with pre- procedural SCr at 0.75 (which appears to be her baseline dating back to the early ). Discharge on 06/19/16 level was 0.83. She had a UTI on discharge and was on Gentamicin 100mg IM daily x10 days as outpatient at [facility]. Therapeutic levels drawn at [facility] and reported here were all within acceptable range. Had ED visit at this facility on 07/04/16 for hypoglycemia and SCr at that time was 2.15 Returned to [facility] on 07/06 with chest discomfort and was dx at that time with pericardial effusion thought to be related to recent CABG. Conservative management was recommended. Admitting SCr on 07/06/16 was 1.48 and discharge in 07/09 was 1.43. Admitting SCr on 08/06/15 was 2.19 that worsened to 2.47 at time of consult PMHx includes DM & HTN for >10 years. Has never been made aware of renal decline. Admits to occasionally using Aleve or Advil at home for headaches, but not everyday. Home medication includes Lasix 40mg QD, but she is not sure why she takes this. Denies any CHF (echo from [facility] on 07/06/16 shows preserved EF of 55-60%) Pt is a questionable historian. Interval History Pt feeling much better. Eating better. No further syncope nor diarrhea. ( Samaria Hanks) Review of Systems General General Remarks Feeling well. No complaints at the present. (Samaria Hanks) Objective Data Data 08/08/16 08/09/16 19:00 07:00 Intake Total 2768 ml 1040 ml Balance 2768 ml 1040 ml Intake Oral 960 ml 240 ml IV Total 1808 ml 800 ml # Voids 4 2 # Bowel Movements 0 0 Vital Signs Date Time Temp Pulse Resp B/P Pulse Ox O2 Delivery O2 Flow Rate FiO2 08/09/16 18:03 76 08/09/16 17:00 71 08/09/16 16:00 80 08/09/16 15:00 98.3 72 18 159/71 100 08/09/16 15:00 72 08/09/16 14:00 72 08/09/16 13:00 77 08/09/16 12:00 66 08/09/16 11:35 98.8 71 18 150/80 100 08/09/16 11:00 69 08/09/16 10:00 82 08/09/16 09:00 73 08/09/16 08:00 86 08/09/16 07:00 98 Room Air 08/09/16 07:00 70 08/09/16 07:00 98.1 76 18 156/76 98 08/09/16 06:00 73 08/09/16 05:00 80 08/09/16 04:00 Room Air 08/09/16 04:00 107 08/09/16 04:00 98.4 108 20 150/78 96 08/09/16 03:00 81 08/09/16 02:00 73 08/09/16 01:00 71 08/09/16 00:00 78 08/09/16 00:00 Room Air 08/09/16 00:00 98.2 80 18 138/64 98 08/08/16 23:00 75 08/08/16 22:00 75 08/08/16 21:00 73 08/08/16 20:00 98.4 74 20 141/63 98 08/08/16 20:00 Room Air 08/08/16 20:00 77 08/08/16 19:00 77 (Samaria Hanks) -: 08/09/16 0740 08/09/16 0740 Imaging Last Impressions Renal Ultrasound 08/08/16 0000 Signed Impressions: Service Date/Time: Monday, August 08, 2016 09:46 - CONCLUSION: 1. Mildly echogenic kidneys characteristic of mild medical renal disease. No acute findings. Dylan Butt MD Carotid Artery Ultrasound 08/07/16 0000 Signed Impressions: Service Date/Time: Sunday, August 07, 2016 08:28 - CONCLUSION: 1. No evidence for hemodynamically significant stenosis of either internal carotid artery. There is moderate plaque deposition at the bifurcations with elevated velocity in the right external carotid artery suggesting a high grade ECA origin stenosis. 2. Antegrade flow in the bilateral vertebral arteries. Juvencio Hernandez MD Chest X-Ray 08/06/161940 Signed Impressions: Service Date/Time: Saturday, August 06, 2016 19:51 - CONCLUSION: No acute cardiopulmonary disease demonstrated. Ramone Pope MD Medication Review Current Medications Medications (Trade) Dose Ordered Sig/Harleen Route Start Time Stop Time Status Last Admin (NS Flush) 2 ml UNSCH PRN FLUSH 08/06/16 23:00 (NS Flush) 2 ml BID FLUSH 08/07/16 09:00 08/09/16 08:58 (Tylenol) 650 mg Q4H PRN PO 08/06/16 23:00 (Zofran Inj) 4 mg Q6H PRN IVP 08/06/16 23:00 (Restoril) 15 mg HS PRN PO 08/06/16 23:00 (Heparin Inj) 5,000 units Q8HR SQ 08/07/16 06:00 08/09/16 14:58 (Narcan Inj) 0.4 mg UNSCH PRN IV 08/06/16 23:00 (Ecotrin Ec) 81 mg DAILY PO 08/07/16 09:00 08/09/16 08:53 (Coreg) 6.25 mg BID PO 08/07/16 09:00 08/09/16 08:52 (Santyl Oint) 1 applic DAILY TOP 08/07/16 09:00 08/09/16 08:53 (Aricept) 10 mg HS PO 08/07/16 21:00 08/08/16 21:17 (Jefferson 5-325 Mg) 1 tab Q4H PRN PO 08/06/16 23:15 (Imodium) 2 mg BID PRN PO 08/06/16 23:15 (Pravachol) 40 mg HS PO 08/07/16 21:00 08/08/16 21:17 (Theragran Hematinic) 1 tab DAILY PO 08/07/16 09:00 08/09/16 08:52 (SEROquel) 25 mg BID PO 08/07/16 09:00 08/09/16 08:52 (NovoLOG MIX 70/ 30 INJ) 10 units DAILY@08,15 SQ 08/07/16 08:00 08/09/16 15:26 (D50w (Vial) Inj) 25 ml UNSCH PRN IV PUSH 08/07/16 07:45 Glucagon 1 mg 1 mg UNSCH PRN OTHER 08/07/16 07:45 (Sodium Bicarbonate 8.4% Inj/08/07 NS 1000 ml Inj) 1,050 ml @ 100 mls/hr [id number] IV 08/07/16 18:00 08/09/16 12:00 (Vitamin D3) 2,000 units DAILY PO 08/08/16 14:00 08/09/16 08:53 (Samaria Hanks) Physical Exam General Appearance: No Acute Distress, Comfortable (Samaria Hanks) Eyes Eye Exam: Pupils Equal, Pupils Reactive (Samaria Hanks) Throat Throat Exam: Oral Mucosa [place] & Moist (Samaria Hanks) Neck Neck Exam: Trachea Midline (Samaria Hanks) Pulmonary Resp Exam: Clear Bilaterally, Breath Sounds Equal, No Distress (Samaria Hanks) Cardiology CV Exam: Regular, Normal Sinus Rhythm (Samaria Hanks) Gastrointestinal/Abdomen GI Exam: Soft, Non-Tender (Samaria Hanks) Integumentary Skin Exam: Clear, Warm (Samaria Hanks) Extremeties Extremities Exam: No Edema (Samaria Hanks) Neurologic Neuro Exam: Alert, Awake (Samaria Hanks) Assessment/Plan Problem List: (1) Acute renal insufficiency Plan: ARF likely multifactorial: decline occurred initially s/p CABG that worsened with Gentamicin administration. She reported significant diarrhea and poor oral intake so there is also a concern for intravascular volume depletion. She has been on diuretics and an ARB throughout which can also worsen renal functions in the setting of dehydration. It appears that she has an ATN from the aforementioned. Renal functions improving daily Continue on IVF Renal US shows evidence of medical renal disease. Uncertain as to her baseline, but she is OK to be discharged home from a renal standpoint with close f/u as outpatient. Did encourage adequate hydration as outpatient. Medications should be adjusted for the patient's renal decline. Avoid nephrotoxic medications including NSAIDs and iodinated contrast dyes. Avoid gadolinium when eGFR <30 (2) Syncope Plan: Work up as per primary. Pending echo, but so far negative evaluation (3) Diarrhea Plan: Mgmt deferred to primary. Reported today as resolved (4) Hypocalcemia Plan: Received IV calcium gluconate. Likely related to Vitamin D deficiency. Continue on Vit D supplementation (5) Hypomagnesemia Plan: Repleted (6) HTN (hypertension) Plan: Hold Losartan. BP stable. Monitor. (7) DM (diabetes mellitus) Plan: Mgmt as per primary (Samaria Hanks) Plan The exam, history, and the medical decision-making described in the above note were completed with the assistance of the PA-C. I reviewed and agree with the findings presented. I attest that I had a [id number] encounter with the patient on the same day, and personally performed and documented my assessment and findings in the medical record. (Nubia Luis MD) Samaria Hanks Aug 09, 2016 19:00 Nubia Luis MD Aug 10, 2016 16:11
[2016-08-09] MEDS: PRAVASTATIN SOD 40 MG TAB PO SCH (20:18)
[2016-08-09] MEDS: DONEPEZIL HCL 5 MG TAB PO SCH (20:19)
[2016-08-10] VITALS (23 sets, daily range): BP systolic 128–178; BP diastolic 65–81; PULSE 61–76; RESP 12–20; TEMP 98.3–99.2; O2SAT 96–99
[2016-08-10] MEDS: INSULIN ASPART SUPPLEMENTAL SCALE SQ SCH ×4 (07:00→20:39)
[2016-08-10] MEDS: INSULIN ASPAR PROT 70/30 1,000 UNITS/10 ML VIAL SQ SCH ×2 (08:00→15:00)
[2016-08-10] MEDS: MULTIVITAMIN HEMATINIC THERAPEUTIC TAB PO SCH (08:43)
[2016-08-10] MEDS: CARVEDILOL 3.125 MG TAB PO SCH ×2 (08:44→20:39)
[2016-08-10] MEDS: CHOLECALCIFEROL (VIT D3) 1000 UNIT TAB PO SCH (08:44)
[2016-08-10] MEDS: QUEtiapine FUMARATE 25 MG TAB PO SCH ×2 (08:44→20:39)
[2016-08-10] MEDS: SODIUM CHLORIDE 0.9% FLUSH 5 ML FLUSH FLUSH SCH ×2 (08:44→20:40)
[2016-08-10] MEDS: ASPIRIN EC 81 MG TABEC PO SCH (08:44)
[2016-08-10] MEDS: COLLAGENASE OINT 30 GM TUBE TOP SCH (08:45)
[2016-08-10] MEDS: HEPARIN SODIUM - SQ 10,000 UNITS/ML VIAL SQ SCH ×3 (08:47→20:40)
[2016-08-10] MEDS: SODIUM BICARBONATE 8.4% INJ 50 MEQ in SODIUM CHLOR 0.45% 1000 ML INJ 1,000 ML IV SCH ×2 (08:54→19:30)
--- NOTE | 2016-08-10 17:11 | EC ---
Study Study Date:08/10/2016 STUDY CONCLUSIONS SUMMARY - Left ventricle: The cavity size was normal. Wall thickness was normal. Systolic function was normal. The estimated ejection fraction was in the range of 60% to 65%. Wall motion was normal; there were no regional wall motion abnormalities. - Aortic valve: Valve area: 1.93cm^2(VTI). Valve area: 2.05cm^2 (Vmax). If LV function is below 40, please consider prescribing an ACEI or ARB or document rationale for non-use. PROCEDURE DATA STUDY STATUS: Elective. Procedure: Transthoracic echocardiography. Image quality was good. Scanning was performed from the parasternal, apical, and subcostal acoustic windows. Study completion: The patient tolerated the procedure well. Transthoracic echocardiography. M-mode, complete 2D, complete spectral Doppler, and color Doppler. Height: Height: 66in. Weight: Weight: 198.6lb. Body mass index: BMI: 32.1kg/m^2. Body surface area: BSA: 2m^2. Patient status: Inpatient. CARDIAC ANATOMY LEFT VENTRICLE: The cavity size was normal. Wall thickness was normal. Systolic function was normal. The estimated ejection fraction was in the range of 60% to 65%. Wall motion was normal; there were no regional wall motion abnormalities. AORTIC VALVE: Trileaflet; normal thickness leaflets. Doppler: Transvalvular velocity was within the normal range. There was no stenosis. No regurgitation. Valve area: 1.93cm^2(VTI). Indexed valve area: 0.97cm^2/m^2 (VTI). Valve area: 2.05cm^2 (Vmax). Indexed valve area: 1.03cm^2/m^2 (Vmax). Mean gradient: 3mm Hg (S). AORTA: Aortic root: The aortic root was normal in size. MITRAL VALVE: Structurally normal valve. Doppler: Transvalvular velocity was within the normal range. There was no evidence for stenosis. Trace regurgitation. LEFT ATRIUM: The atrium was normal in size. RIGHT VENTRICLE: The cavity size was normal. Wall thickness was normal. PULMONIC VALVE: Doppler: Transvalvular velocity was within the normal range. There was no evidence for stenosis. No regurgitation. TRICUSPID VALVE: Structurally normal valve. Doppler: Transvalvular velocity was within the normal range. Trace regurgitation. PULMONARY ARTERY: The main pulmonary artery was normal-sized. Systolic pressure was within the normal range. RIGHT ATRIUM: The atrium was normal in size. PERICARDIUM: There was no pericardial effusion. SYSTEMIC VEINS: Inferior vena cava: The vessel was normal in size. Patient weight: 198.6lb _Ejection fraction:_ 65-75% _Fractional shortening:_ 32% up to 5Kg 5-11.5Kg 11.6-22.9Kg 23-45Kg 45-57Kg Aortic Root 7-13 <17 13-22 17-27 17-27 LA diam 6-13 <23 24-38 33-47 37-40 RVID 10-17 7-15 7-15 7-18 8-17 LVIDd 12-22 <32 24-38 33-47 37-40 LVPW 2-4 3-6 5-7 6-8 7-8 IVS 2-4 3-6 5-7 6-8 7-8 BASIC MEASUREMENTS ADULT NORMAL Left ventricle LV internal dimension, ED, chordal *38.8 mm 43-52 level, PLAX LV internal dimension, ES, chordal 23.1 mm 23-38 level, PLAX Fractional shortening, chordal level, 40 % >29 PLAX LV posterior wall thickness, ED 8.73 mm IVS/LVPW ratio, ED 1 <1.3 Ventricular septum Septal thickness, ED 8.74 mm Aortic valve Leaflet separation 17 mm 15-26 Aorta Root diameter, ED 32 mm Left atrium Anterior-posterior dimension 26 mm Anterior-posterior dimension index 1.3 cm/m^2 <2.2 Right ventricle RV internal dimension, ED, PLAX *40.6 mm 19-38 BASIC MEASUREMENTS ADULT NORMAL Aortic valve Leaflet separation 17 mm 15-26 DOPPLER MEASUREMENTS ADULT NORMAL Aortic valve Peak velocity, S 121 cm/s Mean velocity, S 85.9 cm/s VTI, S 23.1 cm Mean gradient, S 3 mm Hg Valve area, VTI 1.93 cm^2 Valve area index, VTI 0.97 cm^2/m^2 Valve area, Vmax 2.05 cm^2 Valve area index, Vmax 1.03 cm^2/m^2 Mitral valve Peak E-wave velocity 68.6 cm/s Peak A-wave velocity 97.7 cm/s Deceleration time *292 ms 150-230 Peak E/A ratio 0.7 Tricuspid valve Regurgitant peak velocity 182 cm/s Peak RV-RA gradient, S 13 mm Hg Pulmonic valve Peak velocity, S 62.7 cm/s LEGEND: Mean values are shown as u=mean value. Asterisk (*) rodriguez values outside specified normal range. Prepared and signed by Waldo Burton [id number]
[2016-08-10] MEDS: DONEPEZIL HCL 5 MG TAB PO SCH (20:39)
[2016-08-10] MEDS: PRAVASTATIN SOD 40 MG TAB PO SCH (20:39)
[2016-08-11] VITALS (9 sets, daily range): BP systolic 132–159; BP diastolic 63–72; PULSE 64–75; RESP 12–18; TEMP 98.2–99; O2SAT 96–97
[2016-08-11] MEDS: SODIUM BICARBONATE 8.4% INJ 50 MEQ in SODIUM CHLOR 0.45% 1000 ML INJ 1,000 ML IV SCH (04:30)
[2016-08-11] MEDS: HEPARIN SODIUM - SQ 10,000 UNITS/ML VIAL SQ SCH (05:42)
[2016-08-11] MEDS: INSULIN ASPART SUPPLEMENTAL SCALE SQ SCH (07:00)
[2016-08-11] MEDS: INSULIN ASPAR PROT 70/30 1,000 UNITS/10 ML VIAL SQ SCH (08:00)
[2016-08-11] MEDS: QUEtiapine FUMARATE 25 MG TAB PO SCH (08:14)
[2016-08-11] MEDS: ASPIRIN EC 81 MG TABEC PO SCH (08:14)
[2016-08-11] MEDS: CHOLECALCIFEROL (VIT D3) 1000 UNIT TAB PO SCH (08:14)
[2016-08-11] MEDS: CARVEDILOL 3.125 MG TAB PO SCH (08:14)
[2016-08-11] MEDS: COLLAGENASE OINT 30 GM TUBE TOP SCH (08:14)
[2016-08-11] MEDS: SODIUM CHLORIDE 0.9% FLUSH 5 ML FLUSH FLUSH SCH (08:14)
[2016-08-11] MEDS: MULTIVITAMIN HEMATINIC THERAPEUTIC TAB PO SCH (08:20)
--- NOTE | 2016-08-11 08:32 | HHI.PR ---
Subjective Remarks She has been cleared by the specialists to return to the SNF for continued rehab. No new adverse changes are reported. Objective Vital Signs Date Time Temp Pulse Resp B/P Pulse Ox O2 Delivery O2 Flow Rate FiO2 08/11/16 06:00 64 08/11/16 05:00 68 08/11/16 04:29 99.0 72 12 132/63 97 08/11/16 04:00 75 08/11/16 03:00 72 08/11/16 02:00 68 08/11/16 01:00 69 08/11/16 00:00 70 08/10/16 23:00 99.2 73 12 157/74 97 08/10/16 23:00 66 08/10/16 22:00 72 08/10/16 21:00 74 08/10/16 20:15 130/65 08/10/16 20:00 73 08/10/16 19:48 99 Room Air 08/10/16 19:14 99.0 74 12 174/79 99 08/10/16 19:00 72 08/10/16 18:28 74 08/10/16 17:00 69 08/10/16 16:00 64 08/10/16 15:18 98.5 69 18 178/81 96 08/10/16 15:18 69 08/10/16 13:18 72 08/10/16 12:05 64 08/10/16 11:28 61 08/10/16 11:28 98.6 63 18 135/67 98 08/10/16 09:52 69 I/O 08/10/16 08/10/16 08/10/16 08/11/16 08/11/16 08/11/16 07:00 15:00 23:00 07:00 15:00 23:00 Intake Total 958 ml 640 ml 1040 ml Balance 958 ml 640 ml 1040 ml Intake Oral 330 ml 640 ml 240 ml IV Total 628 ml 800 ml # Voids 2 3 1 # Bowel Movements 0 1 0 Result Diagram: 08/09/16 0740 08/09/16 0740 Assessment and Plan Assessment and Plan ASSESSMENT 1. Acute Syncope with Recurrence. 2. Acute Kidney Injury-improved. 3. Coronary Artery Disease. 4. Hypertension. 5. Hyperlipidemia. 6. Diabetes Mellitus, Type 2. 7. Advanced Osteoarthritis. 8. Dementia with Memory Loss. 9. 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 OVERALL, MEDICAL STATUS IS IMPROVED. PLAN 1. Continue with the current medication regimen. 2. Follow up with good oral intake of fluids. 6. Discharge Planning to go to SNF for Rehab. OKAY TO DISCHARGE TODAY. Emiliano Shoemaker MD Aug 11, 2016 08:32
[2016-08-11] MEDS ORDERED: HYDR-3516 PO (08:38)
--- NOTE | 2017-01-10 08:34 | MD ---
cc: MIR SHOEMAKER M.D. ADMISSION DATE: 08/06/2016 DISCHARGE DATE: 08/11/2016 ADMISSION DIAGNOSIS Passing out. DISCHARGE DIAGNOSIS 1. Acute syncopal episode, with recurrence. 2. Acute kidney injury. 3. Coronary artery disease. 4. Hypertension. 5. Hyperlipidemia. 6. Diabetes mellitus, type 2. 7. Advanced osteoarthritis. 8. Dementia with memory loss. 9. 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 BRIEF HISTORY This patient is a 76-year-old female who has a presentation whereby she had episode of ""passing out". This had occurred on more than one occasion on the day of admission. With the last occurrence the patient was found in the bathroom with consideration of having a bowel movement and the patient apparently passed out before she did so. When she was found the patient was with confusion. She did not have any loss of bowel or bladder function. Secondary to the presentation she was transported to the [facility] Emergency Department. She was found with EKG changes as well as laboratory abnormalities in the setting of a syncopal episode. The patient was then admitted to the hospital for further evaluation and treatment. PERTINENT PHYSICAL FINDINGS GENERAL: The patient was alert, well-nourished appearing. HEENT: The pupils were equal and reactive. The oropharynx appeared clear. NECK: Appeared supple without masses, thyromegaly or carotid bruits. HEART: Regular rhythm with S1-S2 distinct. LUNGS: Appeared clear bilaterally to auscultation. ABDOMEN: Soft without tenderness. Bowel sounds were normal. No masses palpated. EXTREMITIES: Good range of motion to exam. The patient had trace edema of the lower extremities. NEUROLOGIC: She was not found with any lateralizing focal motor deficits to gross evaluation. HOSPITAL COURSE The patient was admitted to the hospital and consultation was made to nephrology, neurology and cardiology. She was placed on telemetry monitoring and also was monitored for her intake and output status. Follow up laboratory investigations were done as well. With the evaluations being done by the specialist the patient had carotid ultrasound whereby the examination did not reveal any significant carotid stenosis. Renal ultrasound was done and the study showed mild echogenic kidney changes for medical renal disease, otherwise no acute severe findings. Blood pressure was controlled and the patient had follow up laboratory investigations done. She was not found to have progressed in any of her other changes. With her major workup for cardiac and her other status being stable, it was recommended that the patient be followed closely with regard to her kidney function and maintain good control of her blood sugar and blood pressure. Assessment of her cardiac status with regard to echocardiogram had shown that the patient had ejection fraction of 60-65% with no wall motion or structural abnormalities. With overall current state the patient was evaluated on 08/11/2016 and deemed medically stable for discharge. Discussion had been done with the family and decision was made that the patient would go home with home health care. DISCHARGE DISPOSITION Diet: The patient will be on a heart healthy diet with 1800 calories ADA status. Medications: Aspirin 81 mg daily, Dulcolax 10 mg daily p.r.n., Carvedilol 6.25 mg b.i.d., diclofenac 75 mg b.i.d., Aricept 10 mg q.h.s., furosemide 40 mg daily, hydrocodone/acetaminophen 5/325 one q. 6 hours p.r.n., Novolin 70/30; 10 units subcutaneously b.i.d., losartan 25 mg daily, lovastatin 40 mg daily, multivitamin with minerals one daily, potassium chloride 20 mEq b.i.d., Seroquel 25 mg b.i.d., cephalexin 500 mg q.12 hours for 1-week course. Activity: The patient will have a normal activity and be supported by home health care physical therapy as tolerated. Followup: She will be discharged home with home health care followup will be there. The patient will follow up with Dr. Shoemaker 1 week after discharge. MD CHRISTIN Bryant/TLL /1:10 PM /8:11 AM
== END 2016-08-11 10:13 | DRG 312 ==
LOC: NEPC 19:36 → NEDA 21:49 → HCIS 08-07 03:05
PROVIDERS: ADMIT Internal Medicine; ATTEND Internal Medicine
DX: R55 Syncope and collapse (principal); N17.0 Acute kidney failure with tubular necrosis; I95.9 Hypotension, unspecified; E86.0 Dehydration; E11.9 Type 2 diabetes mellitus without complications; F03.90 Unspecified dementia, unspecified severity, without behavioral disturbance, psychotic disturbance, mood disturbance, and anxiety; E83.42 Hypomagnesemia; E55.9 Vitamin D deficiency, unspecified; N17.9 Acute kidney failure, unspecified; I25.10 Atherosclerotic heart disease of native coronary artery without angina pectoris; K21.9 Gastro-esophageal reflux disease without esophagitis; I10 Essential (primary) hypertension; M19.90 Unspecified osteoarthritis, unspecified site; Z79.4 Long term (current) use of insulin; Z95.1 Presence of aortocoronary bypass graft; Z79.82 Long term (current) use of aspirin; Z86.73 Personal history of transient ischemic attack (TIA), and cerebral infarction without residual deficits; E78.5 Hyperlipidemia, unspecified; Z98.41 Cataract extraction status, right eye; Z98.42 Cataract extraction status, left eye; R19.7 Diarrhea, unspecified
CPT/HCPCS: 71010; 76775; 76937; 80048; 80053; 80069; 80076; 82306; 82550; 82948; 83735; 83880; 83970; 84155; 84484; 85025; 85027; 85610; 85730; 93005; 93306; 93880; 95819; J0610; J1644; J1815; J3475; J7030

== ENCOUNTER 2016-10-13 13:59 | Inpatient (IN) | payer MEDICARE, OTHER ==
[~2016-10-13] VITALS: Ht 167.6 cm; Wt 75.7 kg
[~2016-10-13 13:59] MED LIST changes: -ALBU0.08 NEB; -AMIO200T PO; -ASPI-110 PO; +ASPI1TAB69 PO; -BAZACRE TOP; +COLL30T TOPICAL; -DIFL100T PO; -FLEEENE3 PR; +HYDR-3516 PO; -NORC5TAB PO; -NOVOINJ3 SQ; -NYST1000 SWISH-SWAL; +ONDANSETRON HCL 4 MG/2 ML VIAL IV PUSH ONE; +PHENYLEPH/NS 1000 MCG/10 ML SYR IV ONE; +PROPOFOL 200 MG/20 ML AMP IV ONE; +SERO25TA PO; +ePHEDrine/NS 50 MG/5 ML SYR IV ONE
--- NOTE | 2016-10-13 14:15 | PD ---
HPI Chief Complaint: Fall Time Seen by Provider: 14:15 Travel History International Travel<30 days: No Contact w/Intl Traveler<30days: No Traveled to known affect area: No History of Present Illness HPI 76-year-old Afro-[place]i female presents the emergency department via EMS status post fall in her home. Patient states she is coming around a corner from her kitchen falling sustaining a FOOSH injury to the left wrist. Patient is also complaining of buttock pain. She denies pain in the lower extremities or right arm. She denies pain in the neck or head. Her head or loss of consciousness. Patient is not on any anticoagulants except aspirin 81 mg daily. She denies thoracic pain, shortness of breath, or abdominal pain. She has a history of MRSA and is allergic to Talwin. PFSH Past Medical History Hx Anticoagulant Therapy: Yes (81 MG ASA) Autoimmune Disease: No Blood Disorders: No Heart Rhythm Problems: No Cancer: No Cardiovascular Problems: Yes (CABG) High Cholesterol: No Chemotherapy: No Chest Pain: No Congestive Heart Failure: No Cerebrovascular Accident: Yes Coronary Artery Disease: Yes Dementia: Yes Diabetes: Yes Diminished Hearing: No Endocrine: Yes (DIABETES) GERD: Yes Glaucoma: No Genitourinary: No Headaches: Yes Hepatitis: No Hiatal Hernia: No Hypertension: Yes Immune Disorder: No Musculoskeletal: Yes (ARTHRITIS right side) Neurologic: No Psychiatric: No Reproductive: No Respiratory: No Myocardial Infarction: No Radiation Therapy: No Thyroid Disease: No Past Surgical History Abdominal Surgery: Yes (GALLBLADDER,LAP 1994) AICD: No Body Medical Devices: HARDWARE KNEE AND THIGH Cardiac Surgery: No Coronary Artery Bypass Graft: Yes Ear Surgery: No Endocrine Surgery: No Eye Surgery: Yes (CATARACTS 2003,RETINA LT EYE,LASER SURGERY BOTH EYES 2004) Genitourinary Surgery: No Gynecologic Surgery: Yes (3 D/C 30YRS AGO) Joint Replacement: No Oral Surgery: No Pacemaker: No Thoracic Surgery: No Other Surgery: Yes Social History Alcohol Use: No Tobacco Use: No Substance Use: No Allergies-Medications (Allergen,Severity, Reaction): Coded Allergies: Talwin (Verified Allergy, Severe, CONFUSION,SLUURED WORDS, 08/06/16) *MDRO Multi-Drug Resistant Organism (Verified Adverse Reaction, Unknown, ) MDR-k.pneumoniae (urine-07/04/16) Reported Meds & Prescriptions Reported Meds & Active Scripts Active Hydrocodone-Acetaminophen 5-325 mg Tab 1 Tab PO Q4H PRN Reported Aspirin 81 Mg Tabdr 81 Mg PO DAILY Seroquel (Quetiapine Fumarate) 25 Mg Tab 25 Mg PO BID Santyl Topical (Collagenase) 250 Unit/Gm Oint 1 Applic TOPICAL DAILY Novolog Mix 70-30 FlexPen Inj (Insulin Aspart Protam-Asp 70-30 Inj) 300 Unit/3 Ml Pen 10 Units SQ BIDAC Loperamide (Loperamide HCl) 2 Mg Tab 2 Mg PO BID PRN 3 Days Zofran (Ondansetron HCl) 4 Mg Tab 4 Mg PO Q8HR PRN Multi-Vitamin/Minerals (Multiple Vitamins W/ Minerals) 1 Tab Tab 1 Tab PO DAILY Lovastatin 40 Mg Tab 40 Mg PO HS Aricept (Donepezil) 10 Mg Tab 10 Mg PO HS Losartan (Losartan Potassium) 25 Mg Tab 25 Mg PO DAILY Potassium Chloride ER (Potassium Chloride) 10 Meq Cap 20 Meq PO BID Lasix (Furosemide) 40 Mg Tab 40 Mg PO DAILY Coreg (Carvedilol) 3.125 Mg Tab 6.25 Mg PO BID Dulcolax DR (Bisacodyl) 5 Mg Tabdr 10 Mg PO DAILY PRN Tylenol (Acetaminophen) 325 Mg Tab 650 Mg PO Q4H PRN Milk of Magnesia Liq (Magnesium Hydroxide) 400 Mg/5 Ml Susp 30 Ml PO DIRECTED PRN Dulcolax Supp (Bisacodyl) 10 Mg Supp 10 Mg AR DAILY PRN Review of Systems Except as stated in HPI: all other systems reviewed are Neg General / Constitutional: No: Fever Eyes: No: Visual changes HENT: No: Headaches Cardiovascular: No: Chest Pain or Discomfort Respiratory: No: Shortness of Breath Gastrointestinal: No: Abdominal Pain Genitourinary: No: Dysuria Musculoskeletal: No: Pain Skin: No Rash Neurologic: No: Weakness Psychiatric: No: Depression Endocrine: No: Polydipsia Hematologic/Lymphatic: No: Easy Bruising Physical Exam Narrative GENERAL: Patient appears in mild distress. SKIN: Warm and dry. Normal color. Normal turgor. No signs of trauma. HEAD: Atraumatic. Normocephalic. Nontender. EYES: Pupils equal and round. No scleral icterus. No injection or drainage. ENT: No nasal bleeding or discharge. Mucous membranes pink and moist. Dental injury. Pharynx is normal. Airway is patent. NECK: Trachea midline. No bony tenderness or step-off. Range of motion is full and supple. Cervical spine is cleared utilizing nexus criteria. CARDIOVASCULAR: Regular rate and rhythm. No murmurs gallops or rubs. RESPIRATORY: No accessory muscle use. Clear to auscultation. Breath sounds equal bilaterally. GASTROINTESTINAL: Abdomen soft, non-tender, nondistended. Hepatic and splenic margins not palpable. MUSCULOSKELETAL: Extremities without clubbing, cyanosis, or edema. Patient has deformity to the left wrist consistent with a FOOSH injury. Splint is left in place for x-rays. Patient is tenderness along the lower L-spine pelvic junction. No hip pain bilaterally. No right extremity pain. Shoulder pain bilaterally. NEUROLOGICAL: Awake and alert. No obvious cranial nerve deficits. Motor grossly within normal limits. Five out of 5 muscle strength in the arms and legs. Normal speech. PSYCHIATRIC: Appropriate mood and affect; insight and judgment normal. Data Data Last Documented VS Vital Signs Date Time Temp Pulse Resp B/P Pulse Ox O2 Delivery O2 Flow Rate FiO2 10/13/16 14:21 97.7 90 18 172/102 98 Orders Complete Blood Count With Diff (10/13/16 14:26) Comprehensive Metabolic Panel (10/13/16 14:) Prothrombin Time / Inr (Pt) (10/13/16 14:) Act Partial Throm Time (Ptt) (10/13/16 14:26) Iv Access Insert/Monitor (10/13/16 14:26) NPO (10/13/16 14:) Morphine Inj (Morphine Inj) (10/13/16 14:30) Ondansetron Inj (Zofran Inj) (10/13/16 14:30) Sodium Chloride 0.9% Flush (Ns Flush) (10/13/16 14:30) Electrocardiogram (10/13/16 14:) Wrist, Complete ([id number]) (10/13/16 14:) Chest, Single Ap (10/13/16 14:26) Pelvis, Ap Only (Routine) (10/13/16 14:26) Admit Order (Ed Use Only) (10/13/16 15:51) Labs Laboratory Tests Test 10/13/16 13:38 White Blood Count 6.0 TH/MM3 Red Blood Count 2.84 MIL/MM3 Hemoglobin 8.9 GM/DL Hematocrit 26.3 % Mean Corpuscular Volume 92.5 FL Mean Corpuscular Hemoglobin 31.2 PG Mean Corpuscular Hemoglobin 33.7 % Concent Red Cell Distribution Width 17.6 % Platelet Count 215 TH/MM3 Mean Platelet Volume 8.8 FL Neutrophils (%) (Auto) 58.8 % Lymphocytes (%) (Auto) 28.5 % Monocytes (%) (Auto) 7.3 % Eosinophils (%) (Auto) 4.3 % Basophils (%) (Auto) 1.1 % Neutrophils # (Auto) 3.5 TH/MM3 Lymphocytes # (Auto) 1.7 TH/MM3 Monocytes # (Auto) 0.4 TH/MM3 Eosinophils # (Auto) 0.3 TH/MM3 Basophils # (Auto) 0.1 TH/MM3 CBC Comment DIFF FINAL Differential Comment Prothrombin Time 10.1 SEC Prothromb Time International 0.9 RATIO Ratio Activated Partial 26.9 SEC Thromboplast Time Sodium Level 142 MEQ/L Potassium Level 4.6 MEQ/L Chloride Level 107 MEQ/L Carbon Dioxide Level 29.9 MEQ/L Anion Gap 5 MEQ/L Blood Urea Nitrogen 20 MG/DL Creatinine 1.35 MG/DL Estimat Glomerular Filtration 46 ML/MIN Rate Random Glucose 44 MG/DL Calcium Level 8.7 MG/DL Total Bilirubin 0.5 MG/DL Aspartate Amino Transf 22 U/L (AST/SGOT) Alanine Aminotransferase 17 U/L (ALT/SGPT) Alkaline Phosphatase 91 U/L Total Protein 7.0 GM/DL Albumin 3.2 GM/DL [facility] Medical Decision Making Medical Screen Exam Complete: Yes Emergency Medical Condition: Yes Differential Diagnosis Fall from slipping at home. Left wrist sprain. Left wrist fracture. Narrative Course Patient is medically stable at time of exam. X-rays of the left wrist and pelvis are ordered. IV access is obtained and patient is given 4 mg Zofran IV as well as 2 mg morphine IV. Patient is made nothing by mouth. Labs ordered including CBC, CMP. EKG and chest x-ray is ordered as well. C-spine is cleared utilizing nexus criteria. I do not feel CT of the head was warranted based on the patient's history and physical. CBC shows moderate anemia with hemoglobin 8.9 CMP is unremarkable except for sugar 44. X-ray shows comminuted fracture of the distal left radius. [address] Lehman, the orthopedic on-call 1550 call was returned patient was discussed with Dr. Lehman who would like to take the patient to surgery today. Patient is kept nothing by mouth and splint is maintained on the left wrist. Admission orders are placed for Dr. Lehman. Diagnosis Primary Impression: Left wrist fracture Qualified Code: S62.102A - Left wrist fracture, closed, initial encounter Additional Impression: Fall Qualified Code: W19.XXXA - Fall, initial encounter Admitting Information Admitting Physician Requests: Admit Condition: Stable Glenroy Valdovinos Oct 13, 2016 14:15
[2016-10-13 14:21] VITALS: BP 172/102; PULSE 90; RESP 18; TEMP 97.7; O2SAT 98
[2016-10-13] MEDS ORDERED: MORPHINE SULFATE 4 MG/ML INJ IV PUSH ONE (14:30)
[2016-10-13] MEDS ORDERED: SODIUM CHLORIDE 0.9% FLUSH 5 ML FLUSH IVF PRN ×2 (14:30→18:15)
[2016-10-13] MEDS ORDERED: ONDANSETRON HCL 4 MG/2 ML VIAL IVP ONE (14:30)
[2016-10-13 14:56] LABS: AUTOMATED NEUTROPHIL # 3.5 TH/MM3 (1.8-7.7); BASOPHIL # 0.1 TH/MM3 (0-0.2); BASOPHIL % 1.1 % (0.0-2.0); EOSINOPHIL # 0.3 TH/MM3 (0-0.4); EOSINOPHIL % 4.3 % (0.0-4.0); HEMATOCRIT 26.3 % (35.0-46.0); HEMO FLAGS DIFF FINAL; LYMPH % 28.5 % (9.0-44.0); LYMPHOCYTE # 1.7 TH/MM3 (1.0-4.8); MEAN CELL VOLUME 92.5 FL (80.0-100.0); MEAN CORPUSCULAR HEMOGLOBIN 31.2 PG (27.0-34.0); MEAN CORPUSCULAR HGB CONC 33.7 % (32.0-36.0); MONO % 7.3 % (0.0-8.0); NEUT % 58.8 % (16.0-70.0); PLATELET COUNT 215 TH/MM3 (150-450); RED BLOOD COUNT 2.84 MIL/MM3 (4.00-5.30); RED CELL DISTRIBUTION WIDTH 17.6 % (11.6-17.2)
[2016-10-13 14:59] LABS: APTT (PATIENT) 26.9 SEC (24.3-30.1); INTERNATIONAL NORMALIZED RATIO 0.9 RATIO; PROTHROMBIN TIME - PATIENT 10.1 SEC (9.8-11.6)
[2016-10-13 15:22] LABS: ALKALINE PHOSPHATASE 91 U/L (45-117); ALT (GPT) 17 U/L (10-53); ANION GAP 5 MEQ/L (5-15); AST (GOT) 22 U/L (15-37); BICARBONATE 29.9 MEQ/L (21.0-32.0); BLOOD UREA NITROGEN 20 MG/DL (7-18); CHLORIDE 107 MEQ/L (98-107); GLOMERULAR FILTRATION RATE 46 ML/MIN (>89); POTASSIUM 4.6 MEQ/L (3.5-5.1); SODIUM (NA) 142 MEQ/L (136-145); TOTAL BILIRUBIN ADULT 0.5 MG/DL (0.2-1.0)
--- NOTE | 2016-10-13 15:31 | RADRPT ---
EXAM DATE/TIME: 10/13/2016 14:52 [facility] COMPARISON: PELVIS AP ONLY, January 04, 2015, 15:33. INDICATIONS : Pain from fall. MEDICAL HISTORY : None. SURGICAL HISTORY : None. ENCOUNTER: Initial ACUITY: 1 day PAIN SCORE: 5/10 LOCATION: Bilateral posterior pelvis. FINDINGS: The bony pelvis is intact and has normal morphology. There is mild bilateral hip osteoarthritis, brenna lar to before. 3.6 cm area of hypertrophic bone seen superior to the right greater trochanter, new si nce 2014 but does not appear acute. CONCLUSION: Intact pelvis. Ramone Pope MD on October 13, 2016 at 15:27 Board Certified Radiologist. This report was verified electronically.
--- NOTE | 2016-10-13 15:35 | RADRPT ---
EXAM DATE/TIME: 10/13/2016 14:55 [facility] COMPARISON: No previous studies available for comparison. INDICATIONS : Pain from fall. MEDICAL HISTORY : None. SURGICAL HISTORY : None. ENCOUNTER: Initial ACUITY: 1 day PAIN SCORE: 10/10 LOCATION: Left wrist. FINDINGS: Severely comminuted and dorsally displaced as well as dorsally angulated intra-articular fracture is seen of the distal left radius. There is dorsal subluxation across the ulnocarpal joint.There is asso ciated widening of the pisotriquetral joint. CONCLUSION: Comminuted and dorsally displaced/angulated intra-articular fracture of the distal left radius. Ramone Pope MD on October 13, 2016 at 15:30 Board Certified Radiologist. This report was verified electronically.
--- NOTE | 2016-10-13 15:37 | RADRPT ---
EXAM DATE/TIME: 10/13/2016 15:09 [facility] COMPARISON: CHEST SINGLE AP, August 06, 2016, 19:51. INDICATIONS : Pain from fall. MEDICAL HISTORY : None. SURGICAL HISTORY : CABG. ENCOUNTER: Initial ACUITY: 1 day PAIN SCORE: 4/10 LOCATION: Bilateral chest FINDINGS: No infiltrate, effusion or pneumothorax. Heart size stable, upper limits of normal. Patient has had p revious median sternotomy and coronary artery bypass graft operation. Thoracic aorta is tortuous, sim ilar to before. CONCLUSION: No evidence of acute cardiopulmonary disease. Ramone Pope MD on October 13, 2016 at 15:34 Board Certified Radiologist. This report was verified electronically.
[2016-10-13 17:30] VITALS: BP 168/85; PULSE 68; RESP 17; TEMP 97.8; O2SAT 99
[2016-10-13] MEDS ORDERED: BUPIVACAINE HCL PF 0.25% 30 ML VIAL ONE (17:50)
[2016-10-13] MEDS ORDERED: GENTAMICIN SULFATE 80 MG/2 ML VIAL ONE (17:50)
[2016-10-13] MEDS ORDERED: LIDOCAINE HCL 1% 50 ML VIAL ONE (17:50)
[2016-10-13] MEDS ORDERED: fentaNYL CITRATE 250 MCG/5 ML AMP ONE (18:06)
[2016-10-13] MEDS ORDERED: Post-op Orders (for Pharmacy) MISC XX ONE (18:15)
[2016-10-13] MEDS ORDERED: NALOXONE HCL 0.4 MG/ML AMP IV PRN (18:15)
[2016-10-13] MEDS ORDERED: MORPHINE SULFATE 4 MG/ML INJ IV PUSH PRN (18:15)
[2016-10-13] MEDS ORDERED: MAGNESIUM HYDROXIDE SUSP 30 ML CUP PO PRN (18:15)
[2016-10-13] MEDS ORDERED: MISCELLANEOUS NURSING INFORMATION XX PRN (18:15)
[2016-10-13] MEDS ORDERED: BISACODYL EC 5 MG TABEC PO PRN (18:15)
[2016-10-13] MEDS ORDERED: ONDANSETRON HCL 4 MG/2 ML VIAL IVP PRN (18:15)
[2016-10-13] MEDS ORDERED: diphenhydrAMINE HCL 25 MG CAP PO PRN (18:15)
[2016-10-13] MEDS ORDERED: MISCELLANEOUS PHARMACY INFORMATION XX ONE (18:15)
[2016-10-13] MEDS ORDERED: ACETAMINOPHEN/HYDROcodone 325 MG/7.5 MG TAB PO PRN ×2 (18:15)
[2016-10-13] MEDS ORDERED: HYDR-3288 PO (18:16)
[2016-10-13] MEDS ORDERED: ceFAZolin INJ 1,000 MG VIAL IV ONE (18:30)
[2016-10-13] MEDS ORDERED: DO NOT ADM ANY ANTICOAGULANT DRUGS XX PRN (19:35)
[2016-10-13] MEDS ORDERED: GLUCAGON 1 MG/ML VIAL OTHER PRN (20:00)
[2016-10-13] MEDS ORDERED: DEXTROSE 50% IN WATER 50 ML VIAL(D50) IV PUSH PRN (20:00)
[2016-10-13] MEDS ORDERED: *morphine SULFATE 8 MG/ML PERIprocedure ONLY ONE (20:09)
--- NOTE | 2016-10-13 20:14 | RADRPT ---
EXAM DATE/TIME: 10/13/2016 19:09 [facility] COMPARISON: No previous studies available for comparison. INDICATIONS : Open reduction internal fixation of left wrist fracture MEDICAL HISTORY : None. SURGICAL HISTORY : None. ENCOUNTER: Initial ACUITY: 1 day PAIN SCORE: Non-responsive. LOCATION: Left wrist FINDINGS: The comminuted intra-articular fracture of the distal left radius has undergone open reduction paid internship al fixation. Fixation consists of a volar plate and multiple screws. Alignment is near-anatomic. An u lnar styloid fracture can now be seen. CONCLUSION: Screw and plate fixation of the distal radial fracture. Alignment appears normal. Ramone Pope MD on October 13, 2016 at 20:12 Board Certified Radiologist. This report was verified electronically.
[2016-10-13] MEDS: LACTATED RINGER'S 1000 ML INJ 1,000 ML IV SCH (20:15)
[2016-10-13] MEDS ORDERED: LABETALOL HCL 100 MG/20 ML VIAL ONE (20:33)
[2016-10-13] MEDS ORDERED: SODIUM CHLORIDE 0.9% FLUSH 5 ML FLUSH IVF SCH (21:00)
[2016-10-13] MEDS ORDERED: DONEPEZIL HCL 5 MG TAB PO SCH (21:00)
[2016-10-13] MEDS: INSULIN ASPART SUPPLEMENTAL SCALE SQ SCH (21:00)
[2016-10-13 21:57] VITALS: BP 149/76; PULSE 62; RESP 18; TEMP 99; O2SAT 100
[2016-10-13] MEDS: POTASSIUM CHLORIDE 10 MEQ CAP PO SCH (22:11)
[2016-10-13] MEDS: QUEtiapine FUMARATE 25 MG TAB PO SCH (22:11)
[2016-10-13] MEDS: CARVEDILOL 6.25 MG TAB PO SCH (22:11)
[2016-10-14 04:00] VITALS: BP 122/84; PULSE 69; RESP 18; TEMP 98; O2SAT 100
[2016-10-14] MEDS: INSULIN ASPART SUPPLEMENTAL SCALE SQ SCH (06:37)
[2016-10-14] MEDS: LACTATED RINGER'S 1000 ML INJ 1,000 ML IV SCH (06:38)
[2016-10-14] MEDS ORDERED: INSULIN ASPAR PROT 70/30 1,000 UNITS/10 ML VIAL SQ SCH (07:00)
[2016-10-14 07:14] VITALS: BP 133/69; PULSE 70; RESP 17; TEMP 95.9; O2SAT 98
[2016-10-14] MEDS ORDERED: FUROSEMIDE 40 MG TAB PO SCH (09:00)
[2016-10-14] MEDS ORDERED: MULTIVITAMIN HEMATINIC THERAPEUTIC TAB PO SCH (09:00)
[2016-10-14] MEDS ORDERED: LOSARTAN 25 MG TAB PO SCH (09:00)
[2016-10-14] MEDS ORDERED: MULTIVITAMINS/MINERALS THERAPEUTIC TAB PO SCH (09:00)
--- NOTE | 2016-10-14 09:57 | PD.ORT.PN ---
Subjective Post Op Day #: 1 Subjective Remarks pain under control. Objective Vitals Vital Signs Date Time Temp Pulse Resp B/P Pulse Ox O2 Delivery O2 Flow Rate FiO2 10/14/16 07:14 95.9 70 17 133/69 98 10/14/16 04:00 98.0 69 18 122/84 100 10/13/16 21:57 99.0 62 18 149/76 100 10/13/16 21:00 58 15 169/78 98 Nasal Cannula 2 10/13/16 20:45 97.4 57 15 170/82 97 Nasal Cannula 2 10/13/16 20:30 96 10 185/83 98 Nasal Cannula 2 10/13/16 20:15 69 11 182/87 98 Nasal Cannula 2 10/13/16 20:00 77 14 201/95 100 Nasal Cannula 2 10/13/16 19:45 74 12 174/78 100 Nasal Cannula 3 10/13/16 19:35 98.4 76 12 164/62 100 Nasal Cannula 3 10/13/16 17:32 17 10/13/16 17:30 97.8 68 17 168/85 99 Room Air 10/13/16 17:30 17 99 Room Air 10/13/16 14:21 97.7 90 18 172/102 98 I/O 10/13/16 10/13/16 10/13/16 10/14/16 10/14/16 10/14/16 07:00 15:00 23:00 07:00 15:00 23:00 Intake Total 1000 ml Output Total 275 ml Balance 725 ml Intake Oral 0 ml Other 1000 ml Output Urine Total 225 ml Estimated Blood Loss 50 ml Other 0 ml # Voids 1 Result Diagram: 10/13/16 1338 10/13/16 1338 Other Results Laboratory Tests Test 10/13/16 13:38 Prothrombin Time 10.1 SEC (9.8-11.6) Prothromb Time International 0.9 RATIO Ratio Imaging Last 24 hours Impressions Wrist X-Ray 10/13/161425 Signed Impressions: Service Date/Time: Thursday, October 13, 2016 14:55 - CONCLUSION: Comminuted and dorsally displaced/angulated intra-articular fracture of the distal left radius. Ramone Pope MD Pelvis X-Ray 10/13/161425 Signed Impressions: Service Date/Time: Thursday, October 13, 2016 14:52 - CONCLUSION: Intact pelvis. Ramone Pope MD Chest X-Ray 10/13/16 1426 Signed Impressions: Service Date/Time: Thursday, October 13, 2016 15:09 - CONCLUSION: No evidence of acute cardiopulmonary disease. Ramone Pope MD Objective Remarks walking with PT nad dressing and splint c/d/i NVI cap refill Assessment & Plan Ortho Post Op Day #: 1 Problem List: Assessment and Plan s/p ORIF L distal radius fx maintain splint NWB ROM of fingers sling as needed cleared for d/c today f/up dr. downs 1-2 weeks Kam Hart Oct 14, 2016 09:56
--- NOTE | 2016-10-14 10:00 | HHI.DCPOC ---
Discharge Care Plan Diagnosis: (1) Closed Colles' fracture Your Health Problems Are: Difficulty with ADL Goals to Promote Your Health * To prevent worsening of your condition and complications * To maintain your health at the optimal level Directions to Meet Your Goals Take your medications as prescribed Follow your dietary instruction Follow activity as directed Keep your appointments as scheduled Take your immunizations and boosters as scheduled If your symptoms worsen call your PCP, if no PCP go to Urgent Care Center or Emergency Room Smoking is Dangerous to Your Health. Avoid second hand smoke Call the 24-hour hour crisis hotline for domestic abuse at Kam Hart Oct 14, 2016 10:00
[2016-10-14] MEDS: POTASSIUM CHLORIDE 10 MEQ CAP PO SCH (10:13)
[2016-10-14] MEDS: QUEtiapine FUMARATE 25 MG TAB PO SCH (10:13)
[2016-10-14] MEDS: CARVEDILOL 6.25 MG TAB PO SCH (10:14)
[2016-10-14 11:44] VITALS: BP 100/58; PULSE 72; RESP 17; TEMP 96.4; O2SAT 97
--- NOTE | 2016-10-14 13:07 | PD.CONS ---
History of Present Illness Service INTERNAL MEDICINE Consult Requested By REGLA FISH M.D. Reason for Consult MANAGEMENT OF MEDICAL PROBLEMS. Primary Care Physician EMILIANO LUCIA M.D. Diagnoses: History of Present Illness This patient is a 76 year old female who suffered a fall while ambulating down the hallway. She states that she did not have any reason to trip and did not slip on anything. She feels that she lost her balance when she went to make a turn and fell to the floor. She had severe pain for the left wrist and could not use it. She was transported to the [facility] Emergency Room for evaluation. She was found with a fracture of the distal radius. She is now status post ORIF of the Left Wrist. She is returned to her usual medications and appears to be doing well. No other adverse changes are reported. Review of Systems Neurologic: COMPLAINS OF: Poor Balance Past Family Social History Allergies: Coded Allergies: Talwin (Verified Allergy, Severe, CONFUSION,SLUURED WORDS, 10/13/16) *MDRO Multi-Drug Resistant Organism (Verified Adverse Reaction, Unknown, ) MDR-k.pneumoniae (urine-07/04/16) Past Medical History 1. Hypertension. 2. Coronary Artery Disease. 3. Hyperlipidemia. 4. Diabetes Mellitus, Type 2. 5. Osteoarthritis. 6. Dementia with Memory Loss. 7. Carotid Stenosis. Past Surgical History 1. Coronary Artery Bypass Graft Surgery. 2. ORIF of Right Femur. 3. Laparoscopic Cholecystectomy. 4. Bilateral Cataract Extractions. 5. Bilateral Carotid Artery Endarterectomy. Social History She is and lives at home with her . She is a nonsmoker and does not drink alcohol. She makes no use of recreational drugs. Physical Exam Vital Signs Vital Signs Date Time Temp Pulse Resp B/P Pulse Ox O2 Delivery O2 Flow Rate FiO2 10/14/16 11:44 96.4 72 17 100/58 97 10/14/16 07:14 95.9 70 17 133/69 98 10/14/16 04:00 98.0 69 18 122/84 100 10/13/16 21:57 99.0 62 18 149/76 100 10/13/16 21:00 58 15 169/78 98 Nasal Cannula 2 10/13/16 20:45 97.4 57 15 170/82 97 Nasal Cannula 2 10/13/16 20:30 96 10 185/83 98 Nasal Cannula 2 10/13/16 20:15 69 11 182/87 98 Nasal Cannula 2 10/13/16 20:00 77 14 201/95 100 Nasal Cannula 2 10/13/16 19:45 74 12 174/78 100 Nasal Cannula 3 10/13/16 19:35 98.4 76 12 164/62 100 Nasal Cannula 3 10/13/16 17:32 17 10/13/16 17:30 97.8 68 17 168/85 99 Room Air 10/13/16 17:30 17 99 Room Air 10/13/16 14:21 97.7 90 18 172/102 98 Physical Exam GENERAL: This is a well-nourished, well-developed patient, in no apparent distress at this time. SKIN: No rashes, ecchymoses or lesions. Cool and dry. HEAD: Atraumatic. Normocephalic. No temporal or scalp tenderness. EYES: Pupils equal round and reactive. Extraocular motions intact. No scleral icterus. ENT: Nose without bleeding or purulent drainage. Throat without erythema, tonsillar hypertrophy or exudate. Uvula midline. Airway patent. NECK: Trachea midline. No JVD or lymphadenopathy. Supple, nontender, no meningeal signs. CARDIOVASCULAR: Regular rate and rhythm without murmurs, gallops, or rubs. RESPIRATORY: Clear to auscultation. Breath sounds equal bilaterally. No wheezes , rales, or rhonchi. GASTROINTESTINAL: Abdomen is soft and obese. It is non-tender and nondistended. There is no hepato-splenomegaly or palpable masses. No guarding. MUSCULOSKELETAL: Extremities without clubbing or cyanosis. There is mild edema of the distal lower limbs. No calf tenderness. Negative Homans sign bilaterally. NEUROLOGICAL: Awake and alert. Cranial nerves II through XII intact. Motor and sensory grossly within normal limits. Five out of 5 muscle strength in all muscle groups. Normal speech. Laboratory Laboratory Tests Test 10/13/16 13:38 White Blood Count 6.0 Red Blood Count 2.84 Hemoglobin 8.9 Hematocrit 26.3 Mean Corpuscular Volume 92.5 Mean Corpuscular Hemoglobin 31.2 Mean Corpuscular Hemoglobin 33.7 Concent Red Cell Distribution Width 17.6 Platelet Count 215 Mean Platelet Volume 8.8 Neutrophils (%) (Auto) 58.8 Lymphocytes (%) (Auto) 28.5 Monocytes (%) (Auto) 7.3 Eosinophils (%) (Auto) 4.3 Basophils (%) (Auto) 1.1 Neutrophils # (Auto) 3.5 Lymphocytes # (Auto) 1.7 Monocytes # (Auto) 0.4 Eosinophils # (Auto) 0.3 Basophils # (Auto) 0.1 CBC Comment DIFF FINAL Differential Comment Prothrombin Time 10.1 Prothromb Time International 0.9 Ratio Activated Partial 26.9 Thromboplast Time Sodium Level 142 Potassium Level 4.6 Chloride Level 107 Carbon Dioxide Level 29.9 Anion Gap 5 Blood Urea Nitrogen 20 Creatinine 1.35 Estimat Glomerular Filtration 46 Rate Random Glucose 44 Calcium Level 8.7 Total Bilirubin 0.5 Aspartate Amino Transf 22 (AST/SGOT) Alanine Aminotransferase 17 (ALT/SGPT) Alkaline Phosphatase 91 Total Protein 7.0 Albumin 3.2 Result Diagram: 10/13/16 1338 10/13/16 1338 Assessment and Plan Assessment and Plan ASSESSMENT 1. Status Post ORIF of the Left Wrist. 2. Fracture of the Distal Left Radius. 3. Diabetes Mellitus, Type 2. 4. Hypertension. 5. Hyperlipidemia. PLAN 1. Continue with the current medication regimen. 2. Physical Therapy to continue with Home Health Care. 3. Medically Stable To Go Home Today. Emiliano Lucia MD Oct 14, 2016 13:07
--- NOTE | 2016-10-14 17:13 | EKG ---
Date Performed: 10/13/2016 Time Performed: 15:31:32 PTAGE: 76 years EKG: Sinus rhythm MARKED LEFT AXIS DEVIATION NONSPECIFIC T-WAVE ABNORMALITY SINCE PREVIOUS TRACING 08/07/2016, T-WAVE C HANGES HAS IMPROVED ANTEROLATERALLY. ABNORMAL ECG PREVIOUS TRACING : 08/07/2016 23.09 DOCTOR: John Raza Interpretating Date/Time 10/14/2016 17:12:15
--- NOTE | 2016-10-16 10:54 | MB ---
cc: REGLA FSIH DATE OF CONSULTATION 10/13/16 REASON FOR CONSULTATION Left distal radius fracture. HISTORY OF PRESENT ILLNESS This is a 76-year-old female who presented to [facility] emergency room via ambulance with complaints of severe pain left wrist. She had fall at home, lost her balance, landed on the left wrist. Pain is severe, constant, worsened with any symptoms. There is a sharp stabbing pain. No numbness or tingling. No referred symptoms. She denies hitting her head. Denies loss of consciousness. She was given IV pain medication which gave some relief and also splinting of the extremity. X-rays revealed evidence of a comminuted displaced intra-articular distal radius fracture. Orthopedic surgery has been consulted for further evaluation and management. PAST MEDICAL HISTORY 1. Heart disease, 2. History of CABG. 3. Congestive heart failure, 4. History of stroke 5. Early onset Alzheimer 6. Diabetes mellitus insulin dependent 7. History of headaches, 8. Hypertension, 9. Osteoarthritis, 10. Gallbladder disease with cholecystectomy 11. History of cataract surgery. SOCIAL HISTORY Denies tobacco, alcohol or substance abuse. ALLERGIES TALWIN MULTIDRUG RESISTANT ORGANISM. MEDICATIONS 1. Aspirin. 2. Seroquel. 3. Insulin 4. Loperamide. 5. Zofran. 6. Multivitamin. 7. Lovastatin. 8. Aricept. 9. Losartan 10. Potassium. 11. Lasix 12. Coreg. 13. Dulcolax. 14. Tylenol. 15. Milk of magnesia REVIEW OF SYSTEMS Negative for 10 systems other than HPI. PHYSICAL EXAMINATION GENERAL: Patient is awake, alert in no acute distress. HEENT: Normocephalic, atraumatic. Pupils round. Extraocular muscles are intact. NECK: Neck is supple. LUNGS: Clear. HEART: Regular rate and rhythm. ABDOMEN: Soft, nontender. EXTREMITIES: Exam of the left upper extremity, patient has swelling and ecchymosis of the left wrist with deformity and tenderness to palpation. She can flex and extend her digits with pain are soft. Brisk cap refill. Sensation intact distally. VITAL SIGNS: Temperature 97.7, pulse 90, respirations 18, blood pressure 170/100. White blood cell count six, hemoglobin 8.9, hematocrit 26, platelet 215. IMAGING STUDIES X-rays left wrist revealed a comminuted displaced intra-articular distal radius fracture. IMPRESSION A 76-year-old female status post fall, multiple medical comorbidities with the left comminuted displaced intra-articular distal radius fracture. PLAN I discussed diagnosis and treatment options. Discussed the option of nonoperative treatment versus surgery consisting of open reduction internal fixation. Risk of surgery discussed which include but not limited to anesthesia, bleeding, infection, damage to nerves and blood vessels, pain, stiffness, failure of components. There is no guarantee of surgery. The patient does wish to proceed with surgery. Written consent has been obtained. Surgical site has been marked. We will proceed accordingly. MD NELSON Scherer/ /6:20 PM /9:44 AM
--- NOTE | 2016-10-18 05:42 | MP ---
cc: REGLA FISH M.D. DATE OF SURGERY 10/13/2016 PREOPERATIVE DIAGNOSIS Left distal radius fracture. POSTOPERATIVE DIAGNOSES Left distal radius fracture. PROCEDURE Open reduction of left distal radius fracture, greater than three intra-articular fragments. SURGEON Dr. Regla Fish CARBOY FILLER Trav Hart PA-C ANESTHESIA General. ESTIMATED BLOOD LOSS Less than 50 cc. TOURNIQUET TIME 0 minutes. COMPLICATIONS None. IMPLANTS USED Synthes. JUSTIFICATION This patient is a 76-year-old female who fell sustaining a left comminuted, displaced distal radius fracture. She was taken to the [facility] Emergency Room, had orthopedic surgery consult. The patient was counseled as to the risks, benefits and alternatives to the above-named postsurgical procedure. She did wish to proceed with surgery. PROCEDURE IN DETAIL A written consent was obtained. The patient was identified by name, taken to the operating room, placed supine. General anesthesia was administered as well as 2 grams of IV Ancef. The left upper extremity was prepped and draped using isopropyl alcohol, Hibiclens solution and DuraPrep solution. After appropriate time-out was performed, a longitudinal incision was made over the volar aspect of the left wrist. The flexor carpi radialis tendon sheath was incised and the pronator musculature elevated off the radial aspect of the distal radius. An open reduction was performed and multiple K-wires were used to reconstruct the joint surface. A Synthes volar distal locking plate was applied to the volar aspect of the distal radius. A combination of both locking and nonlocking screws were used for fixation. Fluoroscopic imaging confirmed appropriate placement of hardware and fracture reduction. The surgical wound was thoroughly irrigated with sterile saline solution. The K-wires were removed. The pronator layer as well as the subcutaneous layer was closed with 3-0 Vicryl suture. The skin was closed with Dermabond, sterile dressing applied. The patient tolerated the procedure well. No intraoperative complications were noted. She was placed in a well-padded splint. Trav Hart, physician optical assistant certified, was present during the entire procedure to include patient positioning and the procedure itself. The medical necessity of a physician optical assistant in this case was indicated due to the complexity of the procedure. He assisted in appropriate manipulation of the wrist and also retraction of muscle, tendon, bone, neurovascular structures. He assisted with both achieving and maintaining fracture reduction along with implantation of the internal fixation device. MD NELSON Scherer/LARISSA /7:16 PM /4:30 AM
--- NOTE | 2016-10-23 08:53 | MD ---
cc: REGLA FISH M.D. ADMISSION DATE: 10/13/2016 DISCHARGE DATE: 10/14/2016 ADMISSION DIAGNOSIS Left distal radius fracture. DISCHARGE DIAGNOSIS Left distal radius fracture. HISTORY OF PRESENT ILLNESS Ms. Robert is a 76-year-old female who presented to [facility] Emergency Department via ambulance on 10/13/2016. She states she had a fall at home and had severe pain in her left wrist. She stated the pain was a constant, severe aching sensation and it was worsening. She denied numbness or tingling, denied loss of consciousness after the fall. She was provided pain medication while in the emergency department. She also had x-rays taken revealing a comminuted, displaced intraarticular distal radius fracture of the left wrist. Orthopedics was consulted and the patient was seen in the hospital. Her diagnosis and treatment options were discussed in great detail. The risks, benefits, indications were all discussed. The patient did elect to proceed with surgical intervention for her left wrist. DATE OF SURGERY 10/14/2016. OPERATIVE PROCEDURE Open reduction, internal fixation left distal radius fracture. POSTOP After surgery the patient was admitted to [facility] where she received appropriate medical management, pain control, physical therapy. DISCHARGE When being discharged from the hospital, the patient has been cleared to go home. DISCHARGE INSTRUCTIONS She is to maintain splint and dressing on her left wrist. She may weight-bear as tolerated with fall precautions. DISCHARGE MEDICATIONS She has been provided prescriptions for pain medication. FOLLOWUP She has been advised to call the [facility] after discharge to schedule a follow-up appointment in approximately 1-2 weeks from the date of surgery. Patient has been instructed on [id number] exercises for her fingers, elbow and shoulder. The patient has asked further questions which have all been answered. The patient has been discharged. Dictated by: Trav Hart PA-C Regla Fish MD JWM/LARISSA /7:36 AM /7:53 AM
== END 2016-10-14 13:48 | disposition home or self-care (01) | DRG 511 ==
LOC: HOR 13:59 → NEDH 15:54 → NEDA 17:47 → N06A 21:38
PROVIDERS: ADMIT Orthopaedic Surgery Sports Medicine; ATTEND Orthopaedic Surgery Sports Medicine
PROC: 0PSJ04Z Reposition Left Radius with Internal Fixation Device, Open Approach (ICD-10-PCS; principal; 2016-10-13 18:09)
DX: S52.572A Other intraarticular fracture of lower end of left radius, initial encounter for closed fracture (principal); I13.0 Hypertensive heart and chronic kidney disease with heart failure and stage 1 through stage 4 chronic kidney disease, or unspecified chronic kidney disease; I50.9 Heart failure, unspecified; E11.22 Type 2 diabetes mellitus with diabetic chronic kidney disease; G30.0 Alzheimer's disease with early onset; F02.80 Dementia in other diseases classified elsewhere, unspecified severity, without behavioral disturbance, psychotic disturbance, mood disturbance, and anxiety; I25.10 Atherosclerotic heart disease of native coronary artery without angina pectoris; K21.9 Gastro-esophageal reflux disease without esophagitis; M19.90 Unspecified osteoarthritis, unspecified site; E78.5 Hyperlipidemia, unspecified; I25.2 Old myocardial infarction; N18.9 Chronic kidney disease, unspecified; E66.9 Obesity, unspecified; W18.30XA Fall on same level, unspecified, initial encounter; Y92.000 Kitchen of unspecified non-institutional (private) residence as the place of occurrence of the external cause; Z68.26 Body mass index [BMI] 26.0-26.9, adult; Z79.4 Long term (current) use of insulin; Z86.14 Personal history of Methicillin resistant Staphylococcus aureus infection; Z86.73 Personal history of transient ischemic attack (TIA), and cerebral infarction without residual deficits; Z88.5 Allergy status to narcotic agent; Z95.1 Presence of aortocoronary bypass graft
CPT/HCPCS: 71010; 72170; 73100; 73110; 76000; 80053; 82948; 85025; 85610; 85730; 93005; 94150; C1713; J0690; J1580; J1815; J2270; J2370; J2405; J3010; J7120

== ENCOUNTER 2016-11-03 18:02 | Emergency (ER) | payer MEDICARE, OTHER ==
[2016-11-03] VITALS (7 sets, daily range): BP systolic 148–229; BP diastolic 63–117; PULSE 68–86; RESP 16; TEMP 98.3–98.7; O2SAT 98–100
[~2016-11-03] VITALS: Ht 165.1 cm; Wt 115.0 kg
[~2016-11-03 18:02] MED LIST changes: -COLL30T TOPICAL; +HYDR-3288 PO; -LOPE2TAB3 PO; -ONDANSETRON HCL 4 MG/2 ML VIAL IV PUSH ONE; -PHENYLEPH/NS 1000 MCG/10 ML SYR IV ONE; -PROPOFOL 200 MG/20 ML AMP IV ONE; -ZOFR4TAB PO; -ePHEDrine/NS 50 MG/5 ML SYR IV ONE
--- NOTE | 2016-11-03 20:02 | PD ---
HPI Chief Complaint: Diabetic Time Seen by Provider: 20:02 Travel History International Travel<30 days: No Contact w/Intl Traveler<30days: No Traveled to known affect area: No History of Present Illness HPI 76-year-old female with history of CVA, CAD, Hypertension, diabetes, presents to emergency department today by [facility] for evaluation of hypoglycemia. [facility] was contacted because the patient was lethargic. On scene her blood glucose was noted to be 31. Patient states she takes no oral medication for her diabetes rather she takes insulin. She states she has not taken any insulin today. Denies any recent illnesses, fever, or chills. Denies a chest x -ray or tightness. No cough or chest congestion. No other symptoms to report. PFSH Past Medical History Hx Anticoagulant Therapy: Yes (ASPRIN ) Autoimmune Disease: No Blood Disorders: No Heart Rhythm Problems: No Cancer: No Cardiovascular Problems: Yes (CABG) High Cholesterol: No Chemotherapy: No Chest Pain: No Congestive Heart Failure: No Cerebrovascular Accident: Yes Coronary Artery Disease: Yes Dementia: Yes Diabetes: Yes Diminished Hearing: No Endocrine: Yes (DIABETES) GERD: Yes Glaucoma: No Genitourinary: No Headaches: Yes Hepatitis: No Hiatal Hernia: No Hypertension: Yes Immune Disorder: No Musculoskeletal: Yes (ARTHRITIS right side) Neurologic: No Psychiatric: No Reproductive: No Respiratory: No Myocardial Infarction: No Radiation Therapy: No Thyroid Disease: No ?: Not Past Surgical History Abdominal Surgery: Yes (GALLBLADDER,LAP 1994) AICD: No Body Medical Devices: HARDWARE KNEE AND THIGH Cardiac Surgery: No Coronary Artery Bypass Graft: Yes Ear Surgery: No Endocrine Surgery: No Eye Surgery: Yes (CATARACTS 2003,RETINA LT EYE,LASER SURGERY BOTH EYES 2004) Genitourinary Surgery: No Gynecologic Surgery: Yes (3 D/C 30YRS AGO) Joint Replacement: No Oral Surgery: No Pacemaker: No Thoracic Surgery: No Other Surgery: Yes Social History Alcohol Use: No Tobacco Use: No Substance Use: No Allergies-Medications (Allergen,Severity, Reaction): Coded Allergies: Alayna (Verified Allergy, Severe, CONFUSION,SLUURED WORDS, 11/03/16) *MDRO Multi-Drug Resistant Organism (Verified Adverse Reaction, Unknown, ) MDR-k.pneumoniae (urine-07/04/16) Reported Meds & Prescriptions Reported Meds & Active Scripts Active [place] (Hydrocodone-Acetaminophen) 7.5-325 mg Tab 1-2 Tab PO Q6H PRN Hydrocodone-Acetaminophen 5-325 mg Tab 1 Tab PO Q4H PRN Reported Diclofenac Sodium DR (Diclofenac Sodium) 75 Mg Tabdr 75 Mg PO BID Aspirin 81 Mg Tabdr 81 Mg PO DAILY Seroquel (Quetiapine Fumarate) 25 Mg Tab 25 Mg PO BID Novolog Mix 70-30 FlexPen Inj (Insulin Aspart Protam-Asp 70-30 Inj) 300 Unit/3 Ml Pen 10 Units SQ BIDAC Multi-Vitamin/Minerals (Multiple Vitamins W/ Minerals) 1 Tab Tab 1 Tab PO DAILY Lovastatin 40 Mg Tab 40 Mg PO HS Aricept (Donepezil) 10 Mg Tab 10 Mg PO HS Losartan (Losartan Potassium) 25 Mg Tab 25 Mg PO DAILY Potassium Chloride ER (Potassium Chloride) 10 Meq Cap 20 Meq PO BID Lasix (Furosemide) 40 Mg Tab 40 Mg PO DAILY Coreg (Carvedilol) 3.125 Mg Tab 6.25 Mg PO BID Dulcolax DR (Bisacodyl) 5 Mg Tabdr 10 Mg PO DAILY PRN Tylenol (Acetaminophen) 325 Mg Tab 650 Mg PO Q4H PRN Milk of Magnesia Liq (Magnesium Hydroxide) 400 Mg/5 Ml Susp 30 Ml PO DIRECTED PRN Dulcolax Supp (Bisacodyl) 10 Mg Supp 10 Mg FL DAILY PRN Review of Systems Except as stated in HPI: all other systems reviewed are Neg Physical Exam Narrative GENERAL: Well-nourished female patient, lying in bed in no acute distress. Patient is pleasant, oriented 3 but slow to respond when asked simple questions. SKIN: Focused skin assessment warm/dry. HEAD: Atraumatic. Normocephalic. EYES: Pupils equal and round. No scleral icterus. No injection or drainage. ENT: No nasal bleeding or discharge. Mucous membranes pink and moist. NECK: Trachea midline. No JVD. CARDIOVASCULAR: Regular rate and rhythm. No murmur appreciated. RESPIRATORY: No accessory muscle use. Clear to auscultation. Breath sounds equal bilaterally. GASTROINTESTINAL: Abdomen soft, non-tender, nondistended. Hepatic and splenic margins not palpable. MUSCULOSKELETAL: No obvious deformities. No clubbing. No cyanosis. No edema. NEUROLOGICAL: Awake and alert. No obvious cranial nerve deficits. Motor grossly within normal limits. Normal speech. Data Data Last Documented VS Vital Signs Date Time Temp Pulse Resp B/P Pulse Ox O2 Delivery O2 Flow Rate FiO2 11/03/16 22:12 98.7 86 16 148/66 99 Room Air Orders Basic Metabolic Panel (Bmp) (11/03/16 20:06) Complete Blood Count With Diff (11/03/16 20:06) Urinalysis - C+S If Indicated (11/03/16 20:06) Iv Access Insert/Monitor (11/03/16 20:06) Ecg Monitoring (11/03/16 20:06) Oximetry (11/03/16 20:06) Sodium Chloride 0.9% Flush (Ns Flush) (11/03/16 20:15) Electrocardiogram (11/03/16 20:06) Urine Culture (11/03/16 20:20) Hydralazine Inj (Apresoline Inj) (11/03/16 21:30) Ct Brain W/O Iv Contrast(Rout) (11/03/16 ) Blood Glucose (11/03/16 22:04) Labs Laboratory Tests Test 11/03/16 11/03/16 20:20 20:35 Urine Color COLORLESS Urine Turbidity HAZY Urine pH 6.5 Urine Specific [place] 1.007 Urine Protein NEG mg/dL Urine Glucose (UA) NEG mg/dL Urine Ketones NEG mg/dL Urine Occult Blood NEG Urine Nitrite NEG Urine Bilirubin NEG Urine Urobilinogen LESS THAN 2.0 MG/DL Urine Leukocyte Esterase NEG Urine RBC LESS THAN 1 /hpf Urine WBC 2 /hpf Urine Squamous Epithelial 2 /hpf Cells Urine Bacteria MANY /hpf Microscopic Urinalysis Comment CULTURE INDICATED White Blood Count 5.3 TH/MM3 Red Blood Count 3.26 MIL/MM3 Hemoglobin 10.5 GM/DL Hematocrit 31.1 % Mean Corpuscular Volume 95.3 FL Mean Corpuscular Hemoglobin 32.2 PG Mean Corpuscular Hemoglobin 33.8 % Concent Red Cell Distribution Width 16.0 % Platelet Count 215 TH/MM3 Mean Platelet Volume 8.5 FL Neutrophils (%) (Auto) 78.8 % Lymphocytes (%) (Auto) 15.9 % Monocytes (%) (Auto) 3.2 % Eosinophils (%) (Auto) 1.3 % Basophils (%) (Auto) 0.8 % Neutrophils # (Auto) 4.2 TH/MM3 Lymphocytes # (Auto) 0.8 TH/MM3 Monocytes # (Auto) 0.2 TH/MM3 Eosinophils # (Auto) 0.1 TH/MM3 Basophils # (Auto) 0.0 TH/MM3 CBC Comment DIFF FINAL Differential Comment Sodium Level 142 MEQ/L Potassium Level 3.8 MEQ/L Chloride Level 106 MEQ/L Carbon Dioxide Level 28.0 MEQ/L Anion Gap 8 MEQ/L Blood Urea Nitrogen 17 MG/DL Creatinine 1.17 MG/DL Estimat Glomerular Filtration 54 ML/MIN Rate Random Glucose 96 MG/DL Calcium Level 9.3 MG/DL MDM Medical Decision Making Medical Screen Exam Complete: Yes Emergency Medical Condition: Yes Medical Record Reviewed: Yes Differential Diagnosis Hypoglycemia versus electrolyte abnormality versus infectious etiology versus medication noncompliance Narrative Course 76 year-old female presents to emergency department for evaluation. Patient appears without distress. She was given D50 in route by [facility]. Reassessment of her blood glucose was 151. CBC is without acute concern. BMP shows a random glucose of 96. This is a decrease from her reassessment. Urinalysis is hazy with many bacteria. Culture is indicated. I discussed the patient with my attending physician Dr. Ruiz who recommends moving forward with a CT imaging of the brain. CT imaging of the brain is with mild stable cerebral atrophy and small vessel ischemic changes within the periventricular, subcortical white matter bilaterally. No acute infarct, acute hemorrhage, mass affect or extra-axial fluid collections. 2210 Patient's recheck blood glucose is 102. I discussed the patient with Dr. enrique. She has also assessed the patient. Patient will be discharged home at this time. Diagnosis Primary Impression: Hypoglycemia associated with type 2 diabetes mellitus Additional Impression: UTI (urinary tract infection) Qualified Code: N39.0 - Urinary tract infection without hematuria, site unspecified Referrals: Primary Care Physician Patient Instructions: General Instructions, Hypoglycemia in a Person with Diabetes (ED) Additional Instructions: Continue medication as artery prescribed Follow-up with her primary care provider Return immediately with any acute worsening of symptoms Med/Other Pt SpecificInfo: Prescription(s) given Scripts Cephalexin (Keflex)500 Mg [id number] Mg PO Q12H 7 Days Ref 0 Prov:Mamie Shin 11/03/16 Disposition: 01 DISCHARGE HOME Condition: Stable Mamie Shin Nov 03, 2016 20:02
[2016-11-03] MEDS ORDERED: SODIUM CHLORIDE 0.9% FLUSH 10 ML FLUSH IV FLUSH PRN (20:15)
[2016-11-03] MEDS ORDERED: DICL75TA PO (20:22)
[2016-11-03 20:50] LABS: AUTOMATED NEUTROPHIL # 4.2 TH/MM3 (1.8-7.7); BASOPHIL % 0.8 % (0.0-2.0); EOSINOPHIL # 0.1 TH/MM3 (0-0.4); EOSINOPHIL % 1.3 % (0.0-4.0); HEMATOCRIT 31.1 % (35.0-46.0); HEMO FLAGS DIFF FINAL; LYMPH % 15.9 % (9.0-44.0); LYMPHOCYTE # 0.8 TH/MM3 (1.0-4.8); MEAN CELL VOLUME 95.3 FL (80.0-100.0); MEAN CORPUSCULAR HEMOGLOBIN 32.2 PG (27.0-34.0); MEAN CORPUSCULAR HGB CONC 33.8 % (32.0-36.0); MONO % 3.2 % (0.0-8.0); NEUT % 78.8 % (16.0-70.0); PLATELET COUNT 215 TH/MM3 (150-450); RED BLOOD COUNT 3.26 MIL/MM3 (4.00-5.30); WHITE BLOOD COUNT 5.3 TH/MM3 (4.0-11.0)
[2016-11-03 20:52] LABS: BACTERIA, URINE MANY /hpf; BLOOD, URINE NEG (NEG); COMMENT (UR) CULTURE INDICATED; CULTURE IF INDICATED CULTURE INDICATED; GLUCOSE,URINE NEG (NEG); KETONE, URINE NEG (NEG); NITRITE,URINE NEG (NEG); PH, URINE 6.5 (5.0-8.5); SQUAMOUS EPITHELIAL CELL URINE 2 /hpf (0-5); URINE COLOR COLORLESS (YELLW/STRAW)
[2016-11-03 21:16] LABS: POTASSIUM 3.8 MEQ/L (3.5-5.1)
[2016-11-03] MEDS ORDERED: hydrALAZINE HCL 20 MG/ML VIAL IV PUSH ONE (21:30)
--- NOTE | 2016-11-03 21:57 | RADRPT ---
EXAM DATE/TIME: 11/03/2016 21:48 [place] COMPARISON: CT BRAIN W/O CONTRAST, May 21, 2015, 15:51. INDICATIONS : Altered mental status. RADIATION DOSE: 40.27 CTDIvol (mGy) MEDICAL HISTORY : Non-responsive. SURGICAL HISTORY : Non-responsive. ENCOUNTER: Initial ACUITY: 1 day PAIN SCALE: Non-responsive LOCATION: cranial TECHNIQUE: Multiple contiguous axial images were obtained of the head. Using automated exposure control and adj ustment of the mA and/or kV according to patient size, radiation dose was kept as low as reasonably a chievable to obtain optimal diagnostic quality images. FINDINGS: CEREBRUM: Mild stable cerebral atrophy is noted. Mild periventricular and subcortical white matter small vessel ischemic changes are noted bilaterally. No evidence of midline shift, mass lesion, hemorrhage or acu te infarction. No extra-axial fluid collections are seen. POSTERIOR FOSSA: The cerebellum and brainstem are intact. The 4th ventricle is midline. The cerebellopontine angle i s unremarkable. EXTRACRANIAL: The visualized portion of the orbits is intact. SKULL: The calvaria is intact. No evidence of skull fracture. CONCLUSION: 1. Mild stable cerebral atrophy and small vessel ischemic changes within the periventricular/subcorti polina white matter bilaterally. 2. No acute infarct, acute hemorrhage, mass effect or extra-axial fluid collections. Abner Be MD on November 03, 2016 at 21:54 Board Certified Radiologist. This report was verified electronically.
[2016-11-03] MEDS ORDERED: CEPH-460 PO (22:15)
--- NOTE | 2016-11-05 21:25 | EKG ---
Date Performed: 11/03/2016 Time Performed: 20:12:30 PTAGE: 76 years EKG: Sinus rhythm MARKED LEFT AXIS DEVIATION NONSPECIFIC T-WAVE ABNORMALITY ABNORMAL ECG PREVIOUS TRACING : 10/13/2016 15.31 DOCTOR: Neil Gordillo Interpretating Date/Time 11/05/2016 21:22:14
== END 2016-11-03 23:12 | disposition home or self-care (01) ==
LOC: NEPE 18:02
DX: E11.649 Type 2 diabetes mellitus with hypoglycemia without coma (principal); N39.0 Urinary tract infection, site not specified; B96.1 Klebsiella pneumoniae [K. pneumoniae] as the cause of diseases classified elsewhere; I10 Essential (primary) hypertension; Z79.01 Long term (current) use of anticoagulants; R94.31 Abnormal electrocardiogram [ECG] [EKG]
CPT/HCPCS: 70450; 80048; 81001; 85025; 87077; 87086; 87186; 93005; 96374; 99285; J0360

== ENCOUNTER 2017-07-30 14:25 | Emergency (ER) | payer MEDICARE, OTHER ==
[~2017-07-30] VITALS: Ht 167.6 cm; Wt 100.0 kg
[~2017-07-30 14:25] MED LIST changes: +CEPH-460 PO; +DICL75TA PO
[2017-07-30 14:30] VITALS: BP_SYST 228; BP_SYST 233; BP_DIAS 110; BP_DIAS 94; PULSE 75; RESP 16; TEMP 98; O2SAT 98
[2017-07-30] MEDS ORDERED: LIDOCAINE HCL 1% 50 ML VIAL INFIL ONE (15:00)
--- NOTE | 2017-07-30 15:11 | PD ---
HPI Chief Complaint: Skin Problem Time Seen by Provider: 14:44 Travel History International Travel<30 days: No Contact w/Intl Traveler<30days: No Traveled to known affect area: No History of Present Illness HPI 77 year old female presents to the emergency department after having left fourth digit finger pain today secondary to ring becoming embedded in the finger. Patient states she noticed the hand swelling 3 days ago but the pain started today. Upon assessment is noted that 2 of the 6 rings on the fourth digit of the left hand are embedded in the skin growing over the rings. The patient denies any fevers or chills. Patient's left hand is neurovascularly intact. Patient has 1 ring on her index finger but is able to be cut off without problem. Patient is diabetic. She denies any other physiological complaints outside the left finger pain. PFSH Past Medical History Hx Anticoagulant Therapy: Yes (ASPRIN ) Autoimmune Disease: No Blood Disorders: No Heart Rhythm Problems: No Cancer: No Cardiovascular Problems: Yes (CABG) High Cholesterol: No Chemotherapy: No Chest Pain: No Congestive Heart Failure: No Cerebrovascular Accident: Yes Coronary Artery Disease: Yes Dementia: Yes Diabetes: Yes Patient Takes Glucophage: No Diminished Hearing: No Endocrine: Yes (DIABETES) Gastrointestinal Disorders: No GERD: Yes Glaucoma: No Genitourinary: No Headaches: Yes Hepatitis: No Hiatal Hernia: No Hypertension: Yes Immune Disorder: No Musculoskeletal: Yes (ARTHRITIS right side) Neurologic: No Psychiatric: No Reproductive: No Respiratory: No Myocardial Infarction: No Radiation Therapy: No Thyroid Disease: No Past Surgical History Abdominal Surgery: Yes (GALLBLADDER,LAP 1994) AICD: No Body Medical Devices: HARDWARE KNEE AND THIGH Cardiac Surgery: No Coronary Artery Bypass Graft: Yes Ear Surgery: No Endocrine Surgery: No Eye Surgery: Yes (CATARACTS 2003,RETINA LT EYE,LASER SURGERY BOTH EYES 2004) Genitourinary Surgery: No Gynecologic Surgery: Yes (3 D/C 30YRS AGO) Joint Replacement: No Oral Surgery: No Pacemaker: No Thoracic Surgery: No Other Surgery: Yes Social History Alcohol Use: No Tobacco Use: No Substance Use: No Allergies-Medications (Allergen,Severity, Reaction): Coded Allergies: pentazocine (Unverified Allergy, Severe, CONFUSION,SLUURED WORDS, 03/20/17) *MDRO Multi-Drug Resistant Organism (Verified Adverse Reaction, Unknown, ) MDR-k.pneumoniae (urine-07/04/16) Reported Meds & Prescriptions Reported Meds & Active Scripts Active Keflex (Cephalexin) 500 Mg Cap 500 Mg PO Q12H 7 Days Isabella (Hydrocodone-Acetaminophen) 7.5-325 mg Tab 1-2 Tab PO Q6H PRN Hydrocodone-Acetaminophen 5-325 mg Tab 1 Tab PO Q4H PRN Reported Diclofenac Sodium DR (Diclofenac Sodium) 75 Mg Tabdr 75 Mg PO BID Seroquel (Quetiapine Fumarate) 25 Mg Tab 25 Mg PO BID Novolog Mix 70-30 FlexPen Inj (Insulin Aspart Protam-Asp 70-30 Inj) 300 Unit/3 Ml Pen 10 Units SQ BIDAC Multi-Vitamin/Minerals (Multiple Vitamins W/ Minerals) 1 Tab Tab 1 Tab PO DAILY Lovastatin 40 Mg Tab 40 Mg PO HS Losartan (Losartan Potassium) 25 Mg Tab 25 Mg PO DAILY Potassium Chloride ER (Potassium Chloride) 10 Meq Cap 20 Meq PO BID Lasix (Furosemide) 40 Mg Tab 40 Mg PO DAILY Coreg (Carvedilol) 3.125 Mg Tab 6.25 Mg PO BID Dulcolax DR (Bisacodyl) 5 Mg Tabdr 10 Mg PO DAILY PRN Tylenol (Acetaminophen) 325 Mg Tab 650 Mg PO Q4H PRN Milk of Magnesia Liq (Magnesium Hydroxide) 400 Mg/5 Ml Susp 30 Ml PO DIRECTED PRN Dulcolax Supp (Bisacodyl) 10 Mg Supp 10 Mg KS DAILY PRN Review of Systems Except as stated in HPI: all other systems reviewed are Neg Physical Exam Narrative GENERAL: Well-nourished, well-developed 77-year-old female patient in no acute distress. Nontoxic appearing. SKIN: Large circumferential wound to the fourth digit on the left hand after embedded rings removed from digit. Fourth digit on left hand remains neurovascularly intact. HEAD: Normocephalic. Atraumatic. EYES: No scleral icterus. No injection or drainage. NECK: Supple, trachea midline. No JVD or lymphadenopathy. CARDIOVASCULAR: Regular rate and rhythm without murmurs, gallops, or rubs. RESPIRATORY: Breath sounds equal bilaterally. No accessory muscle use. GASTROINTESTINAL: Abdomen soft, non-tender, nondistended. MUSCULOSKELETAL: No cyanosis, or edema. Data Data Last Documented VS Vital Signs Date Time Temp Pulse Resp B/P (MAP) Pulse Ox O2 Delivery O2 Flow Rate FiO2 07/30/17 14:30 98.0 75 16 228/110 (149) 98 233/94 (140) Orders Orders Lidocaine 1% Inj (50 Ml) (Xylocaine 1% I (07/30/17 15:00) Complete Blood Count With Diff (07/30/17 15:55) Basic Metabolic Panel (Bmp) (07/30/17 15:55) Hand, Complete ([id number]) (07/30/17 16:04) Clindamycin 900 Mg/Ns Premix (Cleocin 90 (07/30/17 16:15) Labs Laboratory Tests Test 07/30/17 15:30 White Blood Count 5.7 TH/MM3 Red Blood Count 3.07 MIL/MM3 Hemoglobin 9.8 GM/DL Hematocrit 29.2 % Mean Corpuscular Volume 95.1 FL Mean Corpuscular Hemoglobin 31.8 PG Mean Corpuscular Hemoglobin Concent 33.4 % Red Cell Distribution Width 14.2 % Platelet Count 212 TH/MM3 Mean Platelet Volume 8.9 FL Neutrophils (%) (Auto) 61.2 % Lymphocytes (%) (Auto) 28.1 % Monocytes (%) (Auto) 7.4 % Eosinophils (%) (Auto) 2.6 % Basophils (%) (Auto) 0.7 % Neutrophils # (Auto) 3.5 TH/MM3 Lymphocytes # (Auto) 1.6 TH/MM3 Monocytes # (Auto) 0.4 TH/MM3 Eosinophils # (Auto) 0.1 TH/MM3 Basophils # (Auto) 0.0 TH/MM3 CBC Comment DIFF FINAL Differential Comment Blood Urea Nitrogen 24 MG/DL Creatinine 1.47 MG/DL Random Glucose 106 MG/DL Calcium Level 8.7 MG/DL Sodium Level 138 MEQ/L Potassium Level 4.9 MEQ/L Chloride Level 102 MEQ/L Carbon Dioxide Level 30.0 MEQ/L Anion Gap 6 MEQ/L Estimat Glomerular Filtration Rate 41 ML/MIN [facility] Medical Decision Making Medical Screen Exam Complete: Yes Emergency Medical Condition: Yes Differential Diagnosis Different diagnosis includes but are not limited to finger infection, foreign body removal, finger edema, finger cellulitis Narrative Course Fourth digit on left hand was digitally blocked in each individual ring was removed using ring cutter. 6 rings were removed in total. 2 of the rings were embedded in the skin. The 2 embedded rings were the most distal proximal to PIP. Large circumferential wound noted post removal. Left hand was soaked in half normal saline and Betadine. Hand surgeon, Dr. Styles was called. CBC and BMP were ordered to get a baseline. 900 mg clindamycin IV administered at our facility. Dr. Murphy assumes care of this patient. Please see his documentation for further details and disposition. Pretty Kaba Jul 30, 2017 15:11
[2017-07-30] MEDS ORDERED: CLINDAMYCIN 900 MG/NS PREMIX 50 ML IV ONE (16:15)
--- NOTE | 2017-07-30 16:15 | PD ---
Data Data Last Documented VS Vital Signs Date Time Temp Pulse Resp B/P (MAP) Pulse Ox O2 Delivery O2 Flow Rate FiO2 07/30/17 14:30 98.0 75 16 228/110 (149) 98 233/94 (140) Orders Orders Lidocaine 1% Inj (50 Ml) (Xylocaine 1% I (07/30/17 15:00) Complete Blood Count With Diff (07/30/17 15:55) Basic Metabolic Panel (Bmp) (07/30/17 15:55) Hand, Complete ([id number]) (07/30/17 16:04) Clindamycin 900 Mg/Ns Premix (Cleocin 90 (07/30/17 16:15) Ed Discharge Order (07/30/17 17:49) Labs Laboratory Tests Test 07/30/17 15:30 White Blood Count 5.7 TH/MM3 Red Blood Count 3.07 MIL/MM3 Hemoglobin 9.8 GM/DL Hematocrit 29.2 % Mean Corpuscular Volume 95.1 FL Mean Corpuscular Hemoglobin 31.8 PG Mean Corpuscular Hemoglobin Concent 33.4 % Red Cell Distribution Width 14.2 % Platelet Count 212 TH/MM3 Mean Platelet Volume 8.9 FL Neutrophils (%) (Auto) 61.2 % Lymphocytes (%) (Auto) 28.1 % Monocytes (%) (Auto) 7.4 % Eosinophils (%) (Auto) 2.6 % Basophils (%) (Auto) 0.7 % Neutrophils # (Auto) 3.5 TH/MM3 Lymphocytes # (Auto) 1.6 TH/MM3 Monocytes # (Auto) 0.4 TH/MM3 Eosinophils # (Auto) 0.1 TH/MM3 Basophils # (Auto) 0.0 TH/MM3 CBC Comment DIFF FINAL Differential Comment Blood Urea Nitrogen 24 MG/DL Creatinine 1.47 MG/DL Random Glucose 106 MG/DL Calcium Level 8.7 MG/DL Sodium Level 138 MEQ/L Potassium Level 4.9 MEQ/L Chloride Level 102 MEQ/L Carbon Dioxide Level 30.0 MEQ/L Anion Gap 6 MEQ/L Estimat Glomerular Filtration Rate 41 ML/MIN [facility] Supervised Visit with NIDIA: Yes Narrative Course Patient seen and examined by me in addition to Pretty PENA and then I assumed care from Mrs. Kaba at 1700 when she left for the day. This is a 77- year-old diabetic female who presented to the emergency department for onset of finger pain today, she appears to have possibly a small purulent collection in the palmar aspect of her left ring finger with 6 ring on her ring finger on the left hand 2 of which have already started to have skin over growing them, I suspect that the patient has some diabetic neuropathy and did not notice that she had a small clot associated with these rings which developed into a mild infection overgrowth and now is stuck with pain as these rings have become nearly bedridden her finger, with her permission I took pictures of these fingers and sent them to our hand surgeon Dr. Styles for a second opinion, Dr. Styles agreed to the ring should be removed after digital block, I did confirm the patient had pulses motor and sensory intact before the ring block, she had brisk capillary refill and testing of syrup sensation with a needle point on the palmar aspect of the affected finger didn't yield some blood as well. The rings were removed from his Sendy, there was a significant wound on the palmar and dorsal aspect of this finger, it was soaked in iodine, the patient does have limited range of motion secondary to swelling but it appears as though the tendons are intact, cap refill remained brisk after the ring removed , near as I can tell there was no vascular injury, the patient will be covered with clindamycin and follow up with Dr. Styles in the office. Basic labs were drawn as a baseline, x-ray showed no bony abnormality, Diagnosis Primary Impression: Finger infection Additional Impressions: Finger abrasion Foreign body (FB) in soft tissue Referrals: Aniya Styles MD Med/Other Pt SpecificInfo: Prescription(s) given Scripts Hydrocodone-Acetaminophen ([place]) 5 Mg-325 Mg Tab 1 TAB PO Q6H Y for PAIN, #15 TAB 0 Refills Prov: Abner Murphy MD 07/30/17 Clindamycin (Clindamycin) 150 Mg Cap 300 MG PO Q6H for Infection for 10 Days, #80 CAP 0 Refills Prov: Abner Murphy MD 07/30/17 Disposition: 01 DISCHARGE HOME Condition: Stable Abner Murphy MD Jul 30, 2017 16:15
--- NOTE | 2017-07-30 16:30 | RADRPT ---
EXAM DATE/TIME: 07/30/2017 16:13 [place] COMPARISON: No previous studies available for comparison. INDICATIONS : Laceration to 4th digit at PIP joint. MEDICAL HISTORY : None. SURGICAL HISTORY : None. ENCOUNTER: Initial ACUITY: 1 day PAIN SCORE: 4/10 LOCATION: Left hand FINDINGS: 3 views of the left hand. Moderate severity diffuse bone demineralization. There is a linear soft tis vicky defect of the ring finger just proximal to the PIP joint consistent with the history of laceratio n. Multiple punctate radiodensities on the skin or superficial dorsal soft tissues in this region. No evidence of fracture. CONCLUSION: Ring finger soft tissue laceration and multiple punctate radiopaque foreign bodies in the soft tissue s or on the skin. No evidence of fracture. Pa Broderick MD on July 30, 2017 at 16:26 Board Certified Radiologist. This report was verified electronically.
[2017-07-30 16:36] LABS: AUTOMATED NEUTROPHIL # 3.5 TH/MM3 (1.8-7.7); BASOPHIL % 0.7 % (0.0-2.0); EOSINOPHIL # 0.1 TH/MM3 (0-0.4); EOSINOPHIL % 2.6 % (0.0-4.0); HEMATOCRIT 29.2 % (35.0-46.0); HEMOGLOBIN 9.8 GM/DL (11.6-15.3); LYMPH % 28.1 % (9.0-44.0); LYMPHOCYTE # 1.6 TH/MM3 (1.0-4.8); MEAN CELL VOLUME 95.1 FL (80.0-100.0); MEAN CORPUSCULAR HEMOGLOBIN 31.8 PG (27.0-34.0); MEAN CORPUSCULAR HGB CONC 33.4 % (32.0-36.0); MEAN PLATELET VOLUME 8.9 FL (7.0-11.0); MONO % 7.4 % (0.0-8.0); MONOCYTE # 0.4 TH/MM3 (0-0.9); NEUT % 61.2 % (16.0-70.0); PLATELET COUNT 212 TH/MM3 (150-450); RED BLOOD COUNT 3.07 MIL/MM3 (4.00-5.30); RED CELL DISTRIBUTION WIDTH 14.2 % (11.6-17.2); WHITE BLOOD COUNT 5.7 TH/MM3 (4.0-11.0)
[2017-07-30 16:51] LABS: CALCIUM 8.7 MG/DL (8.5-10.1); CREATININE 1.47 MG/DL (0.50-1.00)
[2017-07-30] MEDS ORDERED: NORC5TAB PO (16:58)
[2017-07-30] MEDS ORDERED: CLIN150C14 PO (16:58)
== END 2017-07-30 20:02 | disposition home or self-care (01) ==
LOC: NEPC 14:25
DX: S60.415A Abrasion of left ring finger, initial encounter (principal); L08.9 Local infection of the skin and subcutaneous tissue, unspecified; E11.9 Type 2 diabetes mellitus without complications; I25.10 Atherosclerotic heart disease of native coronary artery without angina pectoris; F03.90 Unspecified dementia, unspecified severity, without behavioral disturbance, psychotic disturbance, mood disturbance, and anxiety; I10 Essential (primary) hypertension; M19.90 Unspecified osteoarthritis, unspecified site; X58.XXXA Exposure to other specified factors, initial encounter; Z86.73 Personal history of transient ischemic attack (TIA), and cerebral infarction without residual deficits
CPT/HCPCS: 64450; 73130; 80048; 85025; 96365

== ENCOUNTER 2018-05-14 18:02 | Inpatient (IN) ==
--- NOTE | 2018-05-14 18:43 | XR ---
EXAM DATE: 05/14/2018 6:15 PM EDT AGE/SEX: 78 years / Female INDICATIONS: Congestion. CLINICAL DATA: This is the patient's initial encounter. Patient reports that signs and symptoms have been present for 1 day and indicates a pain score of 0/10. MEDICAL/SURGICAL HISTORY: Cardiovascular disease. CABG. COMPARISON: [facility] [place], CHEST SINGLE AP, 10/13/2016. . FINDINGS: The patient is status post sternotomy. The heart size is normal. The lungs are clear. CONCLUSION: No acute cardiopulmonary process. Electronically signed by: Ramone Winston MD 05/14/2018 6:42 PM EDT
[2018-05-14 18:58] LABS: Prothrombin Time 10.4 sec (9.8-11.6)
[2018-05-14] MEDS ORDERED: Sodium Chlor 0.9% Inj 500 ML IV.SIG SCH (19:00)
--- NOTE | 2018-05-14 19:09 | ED ---
HPI General Chief Complaint: Dizziness Stated Complaint: Medical Time Seen by Provider: 05/14/18 18:14 Source: patient, family and EMS Mode of arrival: EMS Limitations: altered mental status History of Present Illness HPI Narrative: 78-year-old female who presents to the ED for evaluation of dizziness. The patient is been going on for a couple of days. History is a little bit difficult as patient herself is not a great historian. She is not very well both in her medical conditions other than she notes that she has diabetes and takes insulin but she does not know how much of what he takes. She also states that she is been having nausea and vomiting for the past couple of days. Other than this he cannot really tell me anything else. He does have what appears to be a significant old surgical wound to his chest and states that she does not know how she got that but she knows she had surgery. I suspect the patient does have a history of CABG as well. History of dementia I do suspect that the patient is also having some but even the family themselves do not really know much about the patient's medical conditions. Per patient she feels like his cannot fall. Per patient is been throwing up but no blood. No diarrhea. No abdominal pain. No chest pain or shortness of breath. She was found to be somewhat hypertensive. Again unclear if she takes any medications of patient herself again is not a great historian. Related Data Home Medications Medication Instructions Recorded Confirmed Unable to Obtain Home Meds 05/14/18 05/14/18 Allergies Allergy/AdvReac Type Severity Reaction Status Date / Time pentazocine Allergy Severe CONFUSION,SLUURED Verified 05/14/18 18:23 WORDS Review of Systems ROS: all other systems reviewed are negative FORMERLY [facility], [facility] Medical History Medical History Diabetes (Acute) Surgical history unknown (Acute) Social History Social History Smoking Status: Unknown if ever smoked How Often Do You Have a Drink Containing Alcohol: Never Recent Travel in [facility] within the Last 8 Weeks: No Recent Out of Country Travel within the Last 8 Weeks: No Immunization History Tetanus Immunization: Unsure Exam Narrative Exam Narrative: GENERAL: Well appearing SKIN: Focused skin assessment warm/dry. HEAD: Atraumatic. Normocephalic. EYES: Pupils equal and round. No scleral icterus. No injection or drainage. ENT: No nasal bleeding or discharge. Mucous membranes pink and moist. Tongue is midline. No uvula deviation. NECK: Trachea midline. No JVD. CARDIOVASCULAR: Regular rate and rhythm. No murmur appreciated. RESPIRATORY: No accessory muscle use. Clear to auscultation. Breath sounds equal bilaterally. GASTROINTESTINAL: Abdomen soft, non-tender, nondistended. Hepatic and splenic margins not palpable. MUSCULOSKELETAL: No obvious deformities. No clubbing. No cyanosis. No edema. Full range of motion of the upper and lower extremities bilaterally. 2+ pulses bilaterally. NEUROLOGICAL: Awake and alert. No obvious cranial nerve deficits. Motor grossly within normal limits. Normal speech. PSYCHIATRIC: Appropriate mood and affect; insight and judgment normal. Course Initial Documented Vital Signs Temperature 98.9 F 05/14/18 18:24 Pulse Rate 79 05/14/18 18:24 Respiratory Rate 18 05/14/18 18:24 Blood Pressure 233/100 H 05/14/18 18:24 Pulse Oximetry 99 05/14/18 18:24 Last Documented Vital Signs Temperature 98.9 F 05/14/18 18:24 Pulse Rate 90 05/14/18 20:44 Respiratory Rate 18 05/14/18 20:44 Blood Pressure 187/78 H 05/14/18 20:44 Pulse Oximetry 100 05/14/18 20:44 Medical Decision Making [facility] Narrative Medical decision making narrative: 78-year-old female that presents to the ED for evaluation of dizziness and nausea and vomiting. Patient was properly examined and was found to have signs and symptoms of unclear etiology. She does have what appears to be underlying dementia. Patient herself is not a great historian. There is no really family at bedside that can give any history. Labs and imaging were done. Labs and imaging were essentially unremarkable. Patient did not give us a sample of her urine. She was not able to stand for orthostatics. She was very symptomatic with just sitting. She felt nauseous again. I was called by ED nurse that apparently patient seems to be somewhat altered and seems to be coming out. She had an episode but basically she just basically did not speak and would not respond to the nurse and then came back from it and started talking again. Unclear as to what is causing this. At this time her condition is for admission. Case was discussed with Dr. Shoemaker who is the patient's care doctor and apparently admits to himself. He had agreed to admit the patient. Unfortunately would receive a note that apparently Dr. Shoemaker is currently on suspension at the hospital and instead had to admitted to [facility] for his service. Case was discussed with Dr. Alvarez who agreed to admission to her service for observation Medical Screen Exam Complete: Yes Emergency Medical Condition: Yes Differential Diagnosis Differential Diagnosis: Altered mental status versus dizziness versus UTI versus nausea and vomiting versus ACS versus CVA versus weakness Medical Records Medical records reviewed: Yes I reviewed the patient's medical records. Lab Data Lab results reviewed: Yes I reviewed the patient's lab results. Lab results narrative: troponin and CKMB negative Result diagrams: 05/14/18 18:20 05/14/18 18:20 Lab Results 05/14/18 05/14/18 05/14/18 Range/Units 18:00 18:20 18:20 WBC (4.0-11.0) th/mm3 RBC (4.00-5.30) mil/mm3 Hgb (11.6-15.3) gm/dL Hct (35.0-46.0) % MCV (80.0-100.0) fL MCH (27.0-34.0) pg MCHC (32.0-36.0) % RDW (11.6-17.2) % Plt Count (150-450) th/mm3 MPV (7.0-11.0) fL Neut % (Auto) (16.0-70.0) % Lymph % (Auto) (9.0-44.0) % [place] % (Auto) (0.0-8.0) % Eos % (Auto) (0.0-4.0) % Baso % (Auto) (0.0-2.0) % Neut # (Auto) (1.8-7.7) th/mm3 Lymph # (Auto) (1.0-4.8) th/mm3 [place] # (Auto) (0.0-0.9) th/mm3 Eos # (Auto) (0.0-0.4) th/mm3 Baso # (Auto) (0.0-0.2) th/mm3 WBC Differential Differential Comment PT 10.4 (9.8-11.6) sec INR 1.0 Ratio Sodium 141 (136-145) meq/L Potassium 4.3 (3.5-5.1) meq/L Chloride 105 (98-107) meq/L Carbon Dioxide 27.5 (21.0-32.0) meq/L Anion Gap 9 (5-15) meq/L BUN 18 (7-18) mg/dL Creatinine 1.05 H (0.50-1.00) mg/dL Estimated GFR 61 L (>89) mL/min POC Glucose (68-110) mg/dl Random Glucose 162 H (74-106) mg/dL Lactic Acid 1.6 (0.4-2.0) mmol/L Calcium 9.4 (8.5-10.1) mg/dL Total Bilirubin 0.6 (0.2-1.0) mg/dL AST 21 (15-37) U/L ALT 15 (10-53) U/L Alkaline Phosphatase 115 (45-117) U/L Troponin I Less than 0.02 L (0.02-0.05) ng/mL Total Protein 8.6 H (6.4-8.2) g/dL Albumin 3.4 (3.4-5.0) g/dL 05/14/18 05/14/18 Range/Units 18:20 20:42 WBC 8.4 (4.0-11.0) th/mm3 RBC 3.48 L (4.00-5.30) mil/mm3 Hgb 11.0 L (11.6-15.3) gm/dL Hct 33.1 L (35.0-46.0) % MCV 95.0 (80.0-100.0) fL MCH 31.5 (27.0-34.0) pg MCHC 33.2 (32.0-36.0) % RDW 13.5 (11.6-17.2) % Plt Count 201 (150-450) th/mm3 MPV 9.2 (7.0-11.0) fL Neut % (Auto) 84.5 H (16.0-70.0) % Lymph % (Auto) 10.6 (9.0-44.0) % [place] % (Auto) 4.4 (0.0-8.0) % Eos % (Auto) 0.2 (0.0-4.0) % Baso % (Auto) 0.3 (0.0-2.0) % Neut # (Auto) 7.1 (1.8-7.7) th/mm3 Lymph # (Auto) 0.9 L (1.0-4.8) th/mm3 [place] # (Auto) 0.4 (0.0-0.9) th/mm3 Eos # (Auto) 0.0 (0.0-0.4) th/mm3 Baso # (Auto) 0.0 (0.0-0.2) th/mm3 WBC Differential . Differential Comment Auto diff final PT (9.8-11.6) sec INR Ratio Sodium (136-145) meq/L Potassium (3.5-5.1) meq/L Chloride (98-107) meq/L Carbon Dioxide (21.0-32.0) meq/L Anion Gap (5-15) meq/L BUN (7-18) mg/dL Creatinine (0.50-1.00) mg/dL Estimated GFR (>89) mL/min POC Glucose 167 H (68-110) mg/dl Random Glucose (74-106) mg/dL Lactic Acid (0.4-2.0) mmol/L Calcium (8.5-10.1) mg/dL Total Bilirubin (0.2-1.0) mg/dL AST (15-37) U/L ALT (10-53) U/L Alkaline Phosphatase (45-117) U/L Troponin I (0.02-0.05) ng/mL Total Protein (6.4-8.2) g/dL Albumin (3.4-5.0) g/dL Imaging Data Attestation: I personally reviewed and interpreted this imaging study as follows : Radiologist's impression: Chest X-Ray 05/14/18 18:15 CONCLUSION: No acute cardiopulmonary process. Head CT 05/14/18 18:15 CONCLUSION: 1. No acute abnormality seen. 2. Suspected atrophy and small vessel ischemic change in the white matter. . ECG Data Attestation: I personally reviewed and interpreted this ECG as follows: Interpretation: EKG shows sinus rhythm with no sign of acute ischemia and arrhythmia read by me and attending. Discharge Plan Discharge Disposition Patient Disposition: 30 Still Patient Discharge Details Diagnosis: Acute alteration in mental status, Dizziness, Hypertensive urgency Physicians Team ED Provider: Lightburn,Jonnie E ED Midlevel Provider: Da Lehman Primary Care Provider: Emiliano Shoemaker Rxs /Orders / Referrals /Forms Prescriptions: No Action Unable to Obtain Home Meds RF: 0 Discharge Interventions Interventions: Vital Signs Last Done: 05/14/18 20:44 Status ED Status: Admitted Patient
[2018-05-14 19:14] LABS: Baso % (Auto) 0.3 % (0.0-2.0); Eos % (Auto) 0.2 % (0.0-4.0); Hematocrit 33.1 % (35.0-46.0); Lymph # (Auto) 0.9 th/mm3 (1.0-4.8); Lymph % (Auto) 10.6 % (9.0-44.0); Mean Corpuscular HGB Conc 33.2 % (32.0-36.0); Mean Corpuscular Hemoglobin 31.5 pg (27.0-34.0); Mean Platelet Volume 9.2 fL (7.0-11.0); Mono # (Auto) 0.4 th/mm3 (0.0-0.9); Mono % (Auto) 4.4 % (0.0-8.0); Neut # (Auto) 7.1 th/mm3 (1.8-7.7); Neut % (Auto) 84.5 % (16.0-70.0); Platelet Count 201 th/mm3 (150-450); Red Blood Count 3.48 mil/mm3 (4.00-5.30); Red Cell Distribution Width 13.5 % (11.6-17.2); White Blood Count 8.4 th/mm3 (4.0-11.0)
[2018-05-14 19:17] LABS: Alanine Aminotransferase 15 U/L (10-53); Alkaline Phosphatase 115 U/L (45-117); Total Protein 8.6 g/dL (6.4-8.2)
[2018-05-14 19:30] LABS: Albumin 3.4 g/dL (3.4-5.0); Anion Gap 9 meq/L (5-15); Aspartate Aminotransferase 21 U/L (15-37); Blood Urea Nitrogen 18 mg/dL (7-18); Calcium 9.4 mg/dL (8.5-10.1); Carbon Dioxide 27.5 meq/L (21.0-32.0); Chloride 105 meq/L (98-107); Glomerular Filtration Rate 61 mL/min (>89); Glucose,Random 162 mg/dL (74-106); Potassium 4.3 meq/L (3.5-5.1); Sodium 141 meq/L (136-145)
--- NOTE | 2018-05-14 19:39 | CT ---
EXAM DATE: 05/14/2018 6:35 PM EDT AGE/SEX: 78 years / Female INDICATIONS: Altered mental status dizziness CLINICAL DATA: This is the patient's initial encounter. Patient reports that signs and symptoms have been present for 1 day and indicates a pain score of 0/10. MEDICAL/SURGICAL HISTORY: Diabetes. Cardiovascular disease. CABG. RADIATION DOSE: 56.35 CTDI (mGy) COMPARISON: [facility] – [place], [place] BRAIN W/O CONTRAST, 11/03/2016. . TECHNIQUE: CT of the head without contrast. Using automated exposure control and adjustment of the mA and/or kV according to patient size, radiation dose was kept as low as reasonably achievable to ob tain optimal diagnostic quality images. DICOM format image data is available electronically for revi ew and comparison. FINDINGS: Cerebrum: The ventricles are dilated. The cortical sulci are widened. There is decreased density in the cerebral white matter. No evidence of midline shift, mass lesion, hemorrhage or acute infarction. No extraaxial fluid collections are seen. Calcifications are seen in the internal carotid arteries. Posterior Fossa: The cerebellum and brainstem are intact. The 4th ventricle is midline. The cerebe llopontine angle is unremarkable. Extracranial: The visualized portion of the orbits is intact. Skull: The calvaria is intact. No evidence of skull fracture. CONCLUSION: 1. No acute abnormality seen. 2. Suspected atrophy and small vessel ischemic change in the white matter. . Electronically signed by: Ramone Winston MD 05/14/2018 7:38 PM EDT
[2018-05-14] MEDS ORDERED: hydrALAZINE HCl Inj 20 MG/ML Vial IV.PUSH ONE (19:41)
[2018-05-15] MEDS ORDERED: Dextrose 50% in Water 50 ML Vial IV.PUSH PRN (00:33)
[2018-05-15] MEDS ORDERED: Bisacodyl 10 MG Supp RECTAL PRN (00:35)
[2018-05-15] MEDS ORDERED: Acetaminophen 325 MG Tablet PO PRN (00:35)
[2018-05-15] MEDS ORDERED: Sodium Chloride 0.9% 2 ML Flush PRN IV.FLUSH (00:46)
--- NOTE | 2018-05-15 00:48 | P.HP ---
History of Present Illness Service: [facility] Primary Care Physician: Emiliano Shoemaker MD History of Present Illness: 78-year-old female with a past medical history significant for dementia, hypertension, coronary artery disease, hyperlipidemia, diabetes mellitus and osteoarthritis presents to the emergency department for evaluation of nausea and vomiting with dizziness. The patient reports that she has not been feeling well recently and endorses accompanying chills with a headache. She denies any visual changes. Blood pressure on arrival to the emergency department was 233/ 100. The patient is unable to tell me what medication she takes at home. She denies any chest pain or shortness of breath. No abdominal pain or diarrhea. No lateralizing signs/symptoms. Review of Systems All other systems reviewed negative except as stated in HPI [facility] - History History Provided By: Patient, Family Member - Medical History Medical History: Medical History (Last Updated 05/15/18 @ 00:40 by Pham Alvarez MD) Coronary artery disease Dementia Diabetes Hyperlipidemia Hypertension Osteoarthritis - Surgical History Surgical History: Surgical History (Last Updated 05/15/18 @ 00:41 by Pham Alvarez MD) History of bilateral carotid endarterectomy History of cataract surgery History of cholecystectomy History of coronary artery bypass graft - Family History Family History: Family History (Last Updated 05/15/18 @ 00:41 by Pham Alvarez MD) Other Family history unknown - Tobacco History Smoking Status: Unknown if ever smoked - Alcohol History How Often Do You Have a Drink Containing Alcohol: Never - Travel History Recent Travel in the [place] Within the Last 8 Weeks: No Recent Travel Out of the Country Within the Last 8 Weeks: No - Immunization History Tetanus Immunization: Unsure Medications and Allergies Active Medications: Active Medications Acetaminophen (Tylenol) 650 mg PO Q4H PRN PRN Reason: Temp > 100.4 Al Hydroxide/Mg Hydroxide (Milk Of Magnesia Liq) 30 ml PO Q12H PRN PRN Reason: Mild Constipation Bisacodyl (Dulcolax Supp) 10 mg RECTAL DAILY PRN PRN Reason: SEVERE CONSITIPATION Clonidine HCl (Catapres) 0.1 mg PO Q6H PRN PRN Reason: SBP>160, DBP>90 Dextrose (D50w Vial) 50 ml IV.PUSH UNSCH PRN PRN Reason: PER HYPOGLYCEMIA PROTOCOL Glucagon (Glucagon Inj) 1 mg OTHER PRN PRN PRN Reason: for Hypoglycemia Protocol Heparin Sodium (Porcine) (Heparin Inj) 5,000 units SQ Q8H [facility] Sodium Chloride (Ns Inj) 500 mls @ 0 mls/hr IV.SIG BOLUS [facility] Last Infusion: 05/14/18 20:43 Dose: Infused Insulin Aspart (Novolog Insulin Correctional Sugar Inj) 0 unit SQ ACHS AND 3AM JAMES; Protocol Lactulose (Lactulose Liq) 30 ml PO DAILY PRN PRN Reason: SEVERE CONSITIPATION Meclizine HCl (Antivert) 25 mg PO Q6H PRN PRN Reason: dizziness Ondansetron HCl (Zofran Inj) 4 mg IV.PUSH Q6H PRN PRN Reason: NAUSEA OR VOMITING Senna/Docusate Sodium (Lay-Colace) 1 tab PO BID [facility] Sennosides (Senokot) 17.2 mg PO Q12H PRN PRN Reason: Moderate Constipation Allergies Allergy/AdvReac Type Severity Reaction Status Date / Time pentazocine Allergy Severe CONFUSION,SLUURED Verified 05/14/18 18:23 WORDS Home Medications Medication Instructions Recorded Confirmed Type Unable to Obtain Home Meds 05/14/18 05/14/18 History Exam Vital signs: Vital Signs 05/14/18 18:24 05/14/18 19:15 05/14/18 20:44 Temperature 98.9 F Pulse Rate 79 75 90 Respiratory Rate 18 18 18 Blood Pressure 233/100 H 230/101 H 187/78 H Pulse Oximetry 99 98 100 05/14/18 23:31 05/15/18 00:16 Temperature 98.0 F Pulse Rate 85 85 Respiratory Rate 18 18 Blood Pressure 176/76 H 177/78 H Pulse Oximetry 99 99 Intake & Output 05/14/18 05/14/18 05/15/18 06:59 18:59 06:59 Intake Total 500 / 500 Balance 500 / 500 Weight 88.451 kg Intake: IV 500 / 500 NS Inj 500 ML @ Wide Open IV. 500 / 500 SIG BOLUS [facility] Rx#:[id number] Narrative: Gen.: No acute distress Head: Normocephalic. Atraumatic. EENT: Pupils equal round and reactive to light. Nose without drainage. Airway intact. Throat without injection. Cardiovascular: Regular rate and rhythm. No murmurs, rubs or gallops. Respiratory: Lungs clear to auscultation bilaterally. No wheezes or rhonchi. Abdomen: Soft, nontender, nondistended. No peritoneal signs. Musculoskeletal: No gross deformities. No edema. Skin: No obvious rashes or erythema. Neuro: Sensory and motor grossly intact. Cranial nerves II through XII grossly intact. Results - Labs CBC & Chem 7: 05/14/18 18:20 05/14/18 18:20 Labs: Laboratory Results - last 24 hr 05/14/18 05/14/18 05/14/18 18:00 18:20 18:20 WBC RBC Hgb Hct MCV MCH MCHC RDW Plt Count MPV Neut % (Auto) Lymph % (Auto) [place] % (Auto) Eos % (Auto) Baso % (Auto) Neut # (Auto) Lymph # (Auto) [place] # (Auto) Eos # (Auto) Baso # (Auto) WBC Differential Differential Comment PT 10.4 INR 1.0 Sodium 141 Potassium 4.3 Chloride 105 Carbon Dioxide 27.5 Anion Gap 9 BUN 18 Creatinine 1.05 H Estimated GFR 61 L POC Glucose Random Glucose 162 H Lactic Acid 1.6 Calcium 9.4 Total Bilirubin 0.6 AST 21 ALT 15 Alkaline Phosphatase 115 Troponin I Less than 0.02 L Total Protein 8.6 H Albumin 3.4 05/14/18 05/14/18 18:20 20:42 WBC 8.4 RBC 3.48 L Hgb 11.0 L Hct 33.1 L MCV 95.0 MCH 31.5 MCHC 33.2 RDW 13.5 Plt Count 201 MPV 9.2 Neut % (Auto) 84.5 H Lymph % (Auto) 10.6 [place] % (Auto) 4.4 Eos % (Auto) 0.2 Baso % (Auto) 0.3 Neut # (Auto) 7.1 Lymph # (Auto) 0.9 L [place] # (Auto) 0.4 Eos # (Auto) 0.0 Baso # (Auto) 0.0 WBC Differential . Differential Comment Auto diff final PT INR Sodium Potassium Chloride Carbon Dioxide Anion Gap BUN Creatinine Estimated GFR POC Glucose 167 H Random Glucose Lactic Acid Calcium Total Bilirubin AST ALT Alkaline Phosphatase Troponin I Total Protein Albumin - Imaging Impressions Chest X-Ray 05/14/18 18:15 CONCLUSION: No acute cardiopulmonary process. Head CT 05/14/18 18:15 CONCLUSION: 1. No acute abnormality seen. 2. Suspected atrophy and small vessel ischemic change in the white matter. . Caprini VTE Risk Assessment Caprini VTE Risk Assessment: Moderate/High Risk (score >= 2) Caprini Risk Assessment Model: Point Value = 1 Point Value = 2 Point Value = 3 Point Value = 5 Age 41-60 Minor surgery BMI > 25 kg/m2 Swollen legs Varicose veins or History of unexplained or recurrent spontaneous Oral contraceptives or hormone replacement Sepsis (< 1 month) Serious lung disease, including pneumonia (< 1 month) Abnormal pulmonary function Acute myocardial infarction Congestive heart failure (< 1 month) History of inflammatory bowel disease Medical patient at bed rest Age 61-74 Arthroscopic surgery Major open surgery (> 45 min) Laparoscopic surgery (> 45 min) Malignancy Confined to bed (> 72 hours) Immobilizing plaster cast Central venous access Age >= 75 History of VTE Family history of VTE Factor V Leiden Prothrombin [id number] Lupus anticoagulant Anticardiolipin antibodies Elevated serum homocysteine Heparin-induced thrombocytopenia Other congenital or acquired thrombophilia Stroke (< 1 month) Elective arthroplasty Hip, pelvis, or leg fracture Acute spinal cord injury (< 1 month) Prophylaxis Regimen: Total Risk Factor Score Risk Level Prophylaxis Regimen 0-1 Low Early ambulation 2 Moderate Order ONE of the following: *Sequential Compression Device (SCD) *Heparin 5000 units SQ BID 3-4 Higher Order ONE of the following medications: *Heparin 5000 units SQ TID *Enoxaparin/Lovenox 40 mg SQ daily (WT < 150 kg, CrCl > 30 mL/min) *Enoxaparin/Lovenox 30 mg SQ daily (WT < 150 kg, CrCl > 10-29 mL/min) *Enoxaparin/Lovenox 30 mg SQ BID (WT < 150 kg, CrCl > 30 mL/min) AND/OR *Sequential Compression Device (SCD) 5 or more Highest Order ONE of the following medications: *Heparin 5000 units SQ TID (Preferred with Epidurals) *Enoxaparin/Lovenox 40 mg SQ daily (WT < 150 kg, CrCl > 30 mL/min) *Enoxaparin/Lovenox 30 mg SQ daily (WT < 150 kg, CrCl > 10-29 mL/min) *Enoxaparin/Lovenox 30 mg SQ BID (WT < 150 kg, CrCl > 30 mL/min) AND *Sequential Compression Device (SCD) Assessment and Plan - Plan Assessment/plan: 1. Hypertensive crisis Status post hydralazine in the ED which brought the patient's blood pressure to 177/78 Clonidine as needed Continue home antihypertensives once determined 2. Dizziness Meclizine Physical therapy consulted 3. Nausea/vomiting Resolved 4. Altered mental status Suspect secondary to patient's underlying dementia Head CT negative for acute process UA pending 5. Diabetes mellitus Patient reports that she takes insulin but cannot tell me how much or what kind Sliding-scale insulin Monitor blood glucose 6. Hyperlipidemia/CAD Continue home medications once reconciled FEN Heart healthy diet Electrolytes: Monitor and replete as needed Heparin
[2018-05-15] MEDS: Insulin NovoLOG Aspart Correctional Sugar Inj SQ SCH ×5 (02:45→21:22)
[2018-05-15] MEDS: Heparin - SQ 10,000 UNITS/ML Vial SQ SCH ×3 (06:40→21:22)
--- NOTE | 2018-05-15 09:09 | P.PNIM ---
Subjective Interval history: f/u; hypertensive urgency in no acute distress. she's still feeling dizzy. no fever. BP trend noted. Physical Exam Vital signs: Vital Signs 05/14/18 18:24 05/14/18 19:15 05/14/18 20:44 Temperature 98.9 F Pulse Rate 79 75 90 Respiratory Rate 18 18 18 Blood Pressure 233/100 H 230/101 H 187/78 H Pulse Oximetry 99 98 100 05/14/18 23:31 05/15/18 00:16 05/15/18 01:40 Temperature 98.0 F 97.2 F L Pulse Rate 85 85 86 Respiratory Rate 18 18 16 Blood Pressure 176/76 H 177/78 H 226/90 H Pulse Oximetry 99 99 97 05/15/18 03:32 05/15/18 04:55 05/15/18 07:56 Temperature 97.9 F Pulse Rate 87 77 79 Respiratory Rate 17 Blood Pressure 138/64 220/80 H Pulse Oximetry 97 05/15/18 08:00 Temperature 97.6 F Pulse Rate 60 Respiratory Rate 16 Blood Pressure 195/81 H Pulse Oximetry 96 Intake & Output 05/14/18 05/15/18 05/15/18 18:59 06:59 18:59 Intake Total 500 / 500 Balance 500 / 500 Weight 88.451 kg 88.451 kg Intake: IV 500 / 500 NS Inj 500 ML @ Wide Open IV. 500 / 500 SIG BOLUS [facility] Rx#:[id number] Other: Date of Last Bowel Movement 05/14/18 Weight On Admission 88.451 kg - Constitutional no acute distress - Routine Respiratory Exam Present: CTA bilaterally - Routine Cardiovascular Exam Present: RRR - Routine Abdominal Exam Present: soft - Routine Extremities Exam Comments: no pedal edema. - Routine Neurological Exam Present: alert (oriented to person and place but not to time.) Results - Labs CBC & Chem 7: 05/14/18 18:20 05/14/18 18:20 Laboratory Results - last 24 hr 05/14/18 05/14/18 05/14/18 18:00 18:20 18:20 WBC RBC Hgb Hct MCV MCH MCHC RDW Plt Count MPV Neut % (Auto) Lymph % (Auto) [place] % (Auto) Eos % (Auto) Baso % (Auto) Neut # (Auto) Lymph # (Auto) [place] # (Auto) Eos # (Auto) Baso # (Auto) WBC Differential Differential Comment PT 10.4 INR 1.0 Sodium 141 Potassium 4.3 Chloride 105 Carbon Dioxide 27.5 Anion Gap 9 BUN 18 Creatinine 1.05 H Estimated GFR 61 L POC Glucose Random Glucose 162 H Lactic Acid 1.6 Calcium 9.4 Total Bilirubin 0.6 AST 21 ALT 15 Alkaline Phosphatase 115 Troponin I Less than 0.02 L Total Protein 8.6 H Albumin 3.4 05/14/18 05/14/18 18:20 20:42 WBC 8.4 RBC 3.48 L Hgb 11.0 L Hct 33.1 L MCV 95.0 MCH 31.5 MCHC 33.2 RDW 13.5 Plt Count 201 MPV 9.2 Neut % (Auto) 84.5 H Lymph % (Auto) 10.6 [place] % (Auto) 4.4 Eos % (Auto) 0.2 Baso % (Auto) 0.3 Neut # (Auto) 7.1 Lymph # (Auto) 0.9 L [place] # (Auto) 0.4 Eos # (Auto) 0.0 Baso # (Auto) 0.0 WBC Differential . Differential Comment Auto diff final PT INR Sodium Potassium Chloride Carbon Dioxide Anion Gap BUN Creatinine Estimated GFR POC Glucose 167 H Random Glucose Lactic Acid Calcium Total Bilirubin AST ALT Alkaline Phosphatase Troponin I Total Protein Albumin - Imaging Impressions Chest X-Ray 05/14/18 18:15 CONCLUSION: No acute cardiopulmonary process. Head CT 05/14/18 18:15 CONCLUSION: 1. No acute abnormality seen. 2. Suspected atrophy and small vessel ischemic change in the white matter. . Assessment and Plan - Plan 1. Hypertensive urgency Status post hydralazine in the ED which brought the patient's blood pressure to 177/78 will start on Amlodipine and HCTZ Clonidine as needed 2. Dizziness Meclizine Physical therapy consulted 3. Nausea/vomiting Resolved 4. Altered mental status Suspect secondary to patient's underlying dementia Head CT negative for acute process UA pending 5. Diabetes mellitus Sliding-scale insulin Monitor blood glucose 6. Hyperlipidemia/CAD Continue home medications once reconciled FEN Heart healthy diet Electrolytes: Monitor and replete as needed Heparin Discharge Planning: pending PT evaluation- when BP better controlled.
--- NOTE | 2018-05-15 09:47 | ECG ---
Date Performed: 05/14/2018 Time Performed: 22:11:07 PTAGE: 78 years EKG: Sinus rhythm MARKED LEFT AXIS DEVIATION MINIMAL VOLTAGE CRITERIA FOR LVH, CONSIDER NORMAL VARIANT NONSPECIFIC T[address] AVE ABNORMALITY ABNORMAL ECG PREVIOUS TRACING : 11/03/2016 20.12 DOCTOR: Jay Pearce Interpretating Date/Time 05/15/2018 09:45:49
[2018-05-15] MEDS: Sodium Chloride 0.9% 2 ML Flush BID IV.FLUSH SCH ×2 (11:50→21:25)
[2018-05-15] MEDS: Senna/Docusate Sodium 8.6/50 MG Tablet PO SCH ×2 (11:51→21:23)
[2018-05-15] MEDS: amLODIPine 5 MG Tablet PO SCH (11:51)
[2018-05-15] MEDS: hydroCHLOROthiazide 25 MG Tablet PO SCH (13:05)
[2018-05-15 19:51] LABS: Amorphous Sediment,Urine Rare /hpf; Bacteria,Urine Many /hpf; Bilirubin,Urine Negative (Negative); Clarity,Urine Cloudy (Clear); Color,Urine Yellow (Yellw/Straw); Glucose,Urine (UA) Negative (Negative); Leukocyte Esterase,Urine Moderate (Negative); Nitrite,Urine Negative (Negative); Specific Gravity,Urine 1.018 (1.002-1.035); Squamous Epithelial Cell,Urine 8 /hpf (0-5)
[2018-05-16] MEDS: Insulin NovoLOG Aspart Correctional Sugar Inj SQ SCH ×5 (02:38→21:02)
[2018-05-16 05:12] LABS: Bacteria,Urine Many /hpf; Bilirubin,Urine Negative (Negative); Clarity,Urine Cloudy (Clear); Color,Urine Yellow (Yellw/Straw); Glucose,Urine (UA) Negative (Negative); Leukocyte Esterase,Urine Small (Negative); Mucus,Urine Many /lpf (Occasional); Nitrite,Urine Negative (Negative); Specific Gravity,Urine 1.016 (1.002-1.035); Squamous Epithelial Cell,Urine 1 /hpf (0-5)
[2018-05-16] MEDS: Heparin - SQ 10,000 UNITS/ML Vial SQ SCH ×3 (06:29→21:20)
[2018-05-16 07:33] LABS: Baso % (Auto) 0.5 % (0.0-2.0); Eos % (Auto) 0.1 % (0.0-4.0); Hematocrit 32.3 % (35.0-46.0); Hemoglobin 10.6 gm/dL (11.6-15.3); Lymph # (Auto) 1.1 th/mm3 (1.0-4.8); Lymph % (Auto) 17.6 % (9.0-44.0); Mean Corpuscular HGB Conc 32.7 % (32.0-36.0); Mean Corpuscular Hemoglobin 31.6 pg (27.0-34.0); Mean Corpuscular Volume 96.6 fL (80.0-100.0); Mean Platelet Volume 8.5 fL (7.0-11.0); Mono # (Auto) 0.4 th/mm3 (0.0-0.9); Mono % (Auto) 6.1 % (0.0-8.0); Neut # (Auto) 4.8 th/mm3 (1.8-7.7); Neut % (Auto) 75.7 % (16.0-70.0); Platelet Count 213 th/mm3 (150-450); Red Blood Count 3.35 mil/mm3 (4.00-5.30); Red Cell Distribution Width 13.7 % (11.6-17.2); White Blood Count 6.4 th/mm3 (4.0-11.0)
[2018-05-16 08:05] LABS: Calcium 9.2 mg/dL (8.5-10.1); Carbon Dioxide 29.8 meq/L (21.0-32.0); Potassium 3.5 meq/L (3.5-5.1)
[2018-05-16] MEDS: hydroCHLOROthiazide 25 MG Tablet PO SCH (09:52)
[2018-05-16] MEDS: amLODIPine 5 MG Tablet PO SCH (09:52)
[2018-05-16] MEDS: Senna/Docusate Sodium 8.6/50 MG Tablet PO SCH ×2 (09:53→21:02)
--- NOTE | 2018-05-16 10:03 | P.PNIM ---
Subjective Interval history: f/u; uncontrolled hypertension in no acute distress. says that she's not feeling good but no specific complaints. BP trend noted. Physical Exam Vital signs: Vital Signs 05/15/18 11:31 05/15/18 16:00 05/15/18 20:00 Temperature 98.1 F 98.3 F 98.4 F Pulse Rate 64 70 63 Respiratory Rate 16 16 18 Blood Pressure 189/79 H 189/89 H 202/82 H Pulse Oximetry 97 98 05/16/18 00:00 05/16/18 04:00 05/16/18 08:43 Temperature 98.5 F 98.0 F 98.2 F Pulse Rate 64 75 60 Respiratory Rate 19 18 16 Blood Pressure 180/81 H 189/80 H 190/78 H Pulse Oximetry 96 95 96 - Constitutional no acute distress - Routine Respiratory Exam Present: CTA bilaterally - Routine Cardiovascular Exam Present: RRR - Routine Abdominal Exam Present: soft - Routine Extremities Exam Comments: no pedal edema. - Routine Neurological Exam Present: alert (but not oriented to place or time.) Results - Labs CBC & Chem 7: 05/16/18 06:40 05/16/18 06:40 Laboratory Results - last 24 hr 05/15/18 05/15/18 05/15/18 13:03 16:48 17:50 WBC RBC Hgb Hct MCV MCH MCHC RDW Plt Count MPV Neut % (Auto) Lymph % (Auto) [place] % (Auto) Eos % (Auto) Baso % (Auto) Neut # (Auto) Lymph # (Auto) [place] # (Auto) Eos # (Auto) Baso # (Auto) WBC Differential Differential Comment Sodium Potassium Chloride Carbon Dioxide Anion Gap BUN Creatinine Estimated GFR POC Glucose 169 H 171 H Random Glucose Calcium Urine Color Yellow Urine Clarity Cloudy H Urine pH 5.0 Ur Specific [place] 1.018 Urine Protein 30 H Urine Glucose (UA) Negative Urine Ketones Negative Urine Occult Blood Small H Urine Nitrate Negative Urine Bilirubin Negative Urine Urobilinogen Less than 2 Ur Leukocyte Esterase Moderate H Urine RBC Urine WBC 62 H Ur Squamous Epith Cells 8 Amorphous Sediment Rare H Urine Bacteria Many H Urine Mucus Micro UA Comment Culture indicated Ur Microscopic Review Not Reportable Urine Culture Comments Culture indicated 05/15/18 05/16/18 05/16/18 20:34 02:33 04:50 WBC RBC Hgb Hct MCV MCH MCHC RDW Plt Count MPV Neut % (Auto) Lymph % (Auto) [place] % (Auto) Eos % (Auto) Baso % (Auto) Neut # (Auto) Lymph # (Auto) [place] # (Auto) Eos # (Auto) Baso # (Auto) WBC Differential Differential Comment Sodium Potassium Chloride Carbon Dioxide Anion Gap BUN Creatinine Estimated GFR POC Glucose 176 H 171 H Random Glucose Calcium Urine Color Yellow Urine Clarity Cloudy H Urine pH 6.0 Ur Specific [place] 1.016 Urine Protein 30 H Urine Glucose (UA) Negative Urine Ketones Negative Urine Occult Blood Small H Urine Nitrate Negative Urine Bilirubin Negative Urine Urobilinogen Less than 2 Ur Leukocyte Esterase Small H Urine RBC Less than 1 Urine WBC 25 H Ur Squamous Epith Cells 1 Amorphous Sediment Urine Bacteria Many H Urine Mucus Many H Micro UA Comment Ur Microscopic Review Not Reportable Urine Culture Comments 05/16/18 05/16/18 05/16/18 06:40 06:40 09:34 WBC 6.4 RBC 3.35 L Hgb 10.6 L Hct 32.3 L MCV 96.6 MCH 31.6 MCHC 32.7 RDW 13.7 Plt Count 213 MPV 8.5 Neut % (Auto) 75.7 H Lymph % (Auto) 17.6 [place] % (Auto) 6.1 Eos % (Auto) 0.1 Baso % (Auto) 0.5 Neut # (Auto) 4.8 Lymph # (Auto) 1.1 [place] # (Auto) 0.4 Eos # (Auto) 0.0 Baso # (Auto) 0.0 WBC Differential . Differential Comment Auto diff final Sodium 143 Potassium 3.5 D Chloride 106 Carbon Dioxide 29.8 Anion Gap 7 BUN 24 H Creatinine 1.13 H Estimated GFR 56 L POC Glucose 168 H Random Glucose 162 H Calcium 9.2 Urine Color Urine Clarity Urine pH Ur Specific [place] Urine Protein Urine Glucose (UA) Urine Ketones Urine Occult Blood Urine Nitrate Urine Bilirubin Urine Urobilinogen Ur Leukocyte Esterase Urine RBC Urine WBC Ur Squamous Epith Cells Amorphous Sediment Urine Bacteria Urine Mucus Micro UA Comment Ur Microscopic Review Urine Culture Comments Assessment and Plan - Plan 1. Hypertensive urgency- BP still elevated. Status post hydralazine in the ED which brought the patient's blood pressure to 177/78 dc Amlodipine and start on Procardia Clonidine as needed 2. Dizziness Meclizine Physical therapy consulted 3. Nausea/vomiting Resolved 4. Altered mental status Suspect secondary to patient's underlying dementia Head CT negative for acute process UC pending. 5. Diabetes mellitus Sliding-scale insulin Monitor blood glucose 6. Hyperlipidemia/CAD Continue home medications once reconciled FEN Heart healthy diet Electrolytes: Monitor and replete as needed Heparin Discharge Planning: pending PT evaluation- when BP better controlled.
[2018-05-16] MEDS: Sodium Chloride 0.9% 2 ML Flush BID IV.FLUSH SCH ×2 (11:49→21:02)
[2018-05-17] MEDS: Insulin NovoLOG Aspart Correctional Sugar Inj SQ SCH ×5 (03:14→21:14)
[2018-05-17] MEDS: Heparin - SQ 10,000 UNITS/ML Vial SQ SCH ×3 (05:12→21:43)
[2018-05-17] MEDS: hydroCHLOROthiazide 25 MG Tablet PO SCH (08:07)
[2018-05-17] MEDS: Senna/Docusate Sodium 8.6/50 MG Tablet PO SCH ×2 (08:12→20:39)
--- NOTE | 2018-05-17 09:42 | P.PNIM ---
Subjective Interval history: in no acute distress. resting comfortably. denies pain. hoping that she could go home today. no new complaints. Physical Exam Vital signs: Vital Signs 05/16/18 12:20 05/16/18 16:05 05/16/18 20:00 Temperature 97.6 F 98.0 F 98.4 F Pulse Rate 71 69 62 Respiratory Rate 18 18 18 Blood Pressure 197/93 H 216/88 H 173/84 H Pulse Oximetry 97 94 L 96 05/16/18 21:00 05/16/18 23:29 05/17/18 05:46 Temperature 98.5 F 98.5 F Pulse Rate 77 74 Respiratory Rate 18 18 Blood Pressure 192/86 H 182/82 H 151/70 H Pulse Oximetry 96 97 05/17/18 08:00 Temperature 97.9 F Pulse Rate 63 Respiratory Rate 16 Blood Pressure 187/74 H Pulse Oximetry 96 - Constitutional no acute distress - Routine Respiratory Exam Present: CTA bilaterally - Routine Cardiovascular Exam Present: RRR - Routine Abdominal Exam Present: soft - Routine Extremities Exam Comments: no pedal edema. - Routine Neurological Exam Present: alert, oriented X3 Results - Labs CBC & Chem 7: 05/16/18 06:40 05/16/18 06:40 Laboratory Results - last 24 hr 05/15/18 05/16/18 05/16/18 16:48 09:34 12:41 POC Glucose 168 H 181 H Urine Color Yellow Urine Clarity Cloudy H Urine pH 5.0 Ur Specific [employer] [place] 1.018 Urine Protein 30 H Urine Glucose (UA) Negative Urine Ketones Negative Urine Occult Blood Small H Urine Nitrate Negative Urine Bilirubin Negative Urine Urobilinogen Less than 2 Ur Leukocyte Esterase Moderate H Urine WBC 62 H Ur Squamous Epith Cells 8 Amorphous Sediment Rare H Urine Bacteria Many H Micro UA Comment Culture indicated Urine Culture Comments Culture indicated 05/16/18 05/16/18 05/17/18 17:32 21:01 02:55 POC Glucose 163 H 130 H 191 H Urine Color Urine Clarity Urine pH Ur Specific [place] Urine Protein Urine Glucose (UA) Urine Ketones Urine Occult Blood Urine Nitrate Urine Bilirubin Urine Urobilinogen Ur Leukocyte Esterase Urine WBC Ur Squamous Epith Cells Amorphous Sediment Urine Bacteria Micro UA Comment Urine Culture Comments 05/17/18 08:06 POC Glucose 156 H Urine Color Urine Clarity Urine pH Ur Specific [place] Urine Protein Urine Glucose (UA) Urine Ketones Urine Occult Blood Urine Nitrate Urine Bilirubin Urine Urobilinogen Ur Leukocyte Esterase Urine WBC Ur Squamous Epith Cells Amorphous Sediment Urine Bacteria Micro UA Comment Urine Culture Comments Microbiology 05/15/18 16:48 Clean Catch Urine Urine Culture - Preliminary gram negative rods Assessment and Plan - Plan 1. Hypertensive urgency- BP still elevated but overall improved. Status post hydralazine in the ED which brought the patient's blood pressure to 177/78 continue Procardia and HCTZ Clonidine as needed 2. Dizziness Meclizine Physical therapy consulted 3. Nausea/vomiting Resolved 4. Altered mental status Suspect secondary to patient's underlying dementia Head CT negative for acute process 5.UTI- UC with gram negative sandra; start on Cipro and follow the culture 6. Diabetes mellitus Sliding-scale insulin Monitor blood glucose 7. Hyperlipidemia/CAD Continue home medications once reconciled FEN Heart healthy diet Electrolytes: Monitor and replete as needed Heparin Discharge Planning: dc home with HHC- within the next 24 hrs- if BP stable.
--- NOTE | 2018-05-17 09:43 | P.DCO ---
- Physical Therapy Order: Evaluate and treat - Home Health Nursing Order: Medical education, Signs/symptoms of disease process, Medication education-adverse effect, Nursing assessment with vital signs - Case Management Consult Yes - Certification I have seen patient Becky Robert on 05/17/18. My clinical findings support the need for the requested home health care services because: Limited mobility due to disease progression I certify that my clinical findings support that this patient is homebound because: Unsteady gait/balance
[2018-05-17] MEDS: Sodium Chloride 0.9% 2 ML Flush BID IV.FLUSH SCH ×2 (14:24→20:42)
[2018-05-17] MEDS: Ciprofloxacin 250 MG Tablet PO SCH ×2 (15:56→20:39)
[2018-05-18] MEDS: Insulin NovoLOG Aspart Correctional Sugar Inj SQ SCH ×5 (02:54→20:16)
[2018-05-18] MEDS: Heparin - SQ 10,000 UNITS/ML Vial SQ SCH ×3 (05:49→23:38)
[2018-05-18] MEDS: Senna/Docusate Sodium 8.6/50 MG Tablet PO SCH ×2 (08:10→20:16)
[2018-05-18] MEDS: Ciprofloxacin 250 MG Tablet PO SCH ×2 (08:10→20:13)
[2018-05-18] MEDS: Sodium Chloride 0.9% 2 ML Flush BID IV.FLUSH SCH ×3 (08:11→21:17)
[2018-05-18] MEDS: hydroCHLOROthiazide 25 MG Tablet PO SCH (08:15)
--- NOTE | 2018-05-18 08:19 | P.PNIM ---
Subjective Interval history: f/u; uncontrolled hypertension in no acute distress. but feeling dizzy and lightheaded. orthostatic BP was positive. denies chest pain. d/w the RN at the bedside. Physical Exam Vital signs: Vital Signs 05/17/18 12:00 05/17/18 13:34 05/17/18 16:00 Temperature 97.8 F Pulse Rate 70 70 Respiratory Rate 16 18 Blood Pressure 227/107 H 188/84 H 204/90 H Pulse Oximetry 98 98 05/17/18 19:35 05/17/18 20:00 05/17/18 23:20 Temperature 98.2 F 97.9 F Pulse Rate 76 73 Respiratory Rate 18 18 18 Blood Pressure 192/85 H 141/65 H Pulse Oximetry 96 05/18/18 03:01 05/18/18 06:17 05/18/18 07:15 Temperature 98.1 F 97.8 F Pulse Rate 63 57 L 60 Respiratory Rate 18 12 Blood Pressure 187/75 H 149/70 H 155/70 H Pulse Oximetry 97 94 L - Constitutional no acute distress - Routine Respiratory Exam Present: CTA bilaterally - Routine Cardiovascular Exam Present: RRR - Routine Abdominal Exam Present: soft - Routine Extremities Exam Comments: no pedal edema. - Routine Neurological Exam Present: alert Results - Labs CBC & Chem 7: 05/18/18 09:45 05/18/18 09:45 Laboratory Results - last 24 hr 05/17/18 05/17/18 05/17/18 13:37 17:42 20:41 POC Glucose 196 H 153 H 164 H 05/18/18 05/18/18 02:49 07:39 POC Glucose 196 H 174 H Microbiology 05/15/18 16:48 Clean Catch Urine Urine Culture - Final Klebsiella pneumoniae Assessment and Plan - Plan 1. Hypertensive urgency at the presentation now with orthostatic hypotension- hold BP meds for now- will recheck the BP for orthostatic changes q shift today. 2. Nausea/vomiting Resolved 3. Altered mental status Suspect secondary to patient's underlying dementia/ and UTI Head CT negative for acute process 4.UTI- UC with Klebsiella; started on Cipro 5. Diabetes mellitus Sliding-scale insulin Monitor blood glucose 6. Hyperlipidemia/CAD Continue home medications once reconciled 7- acute kidney injury start on IV fluid and monitor renal function closely. FEN Heart healthy diet Electrolytes: Monitor and replete as needed Heparin Discharge Planning: feeling dizzy today with orthostatic hypotension. will change to inpatient status since need to monitor the BP and renal function closely. dc planning; likely rehab.
[2018-05-18 10:10] LABS: Baso % (Auto) 0.4 % (0.0-2.0); Eos % (Auto) 0.6 % (0.0-4.0); Hematocrit 34.6 % (35.0-46.0); Hemoglobin 11.1 gm/dL (11.6-15.3); Lymph # (Auto) 1.3 th/mm3 (1.0-4.8); Lymph % (Auto) 18.7 % (9.0-44.0); Mean Corpuscular HGB Conc 32.1 % (32.0-36.0); Mean Corpuscular Hemoglobin 31.3 pg (27.0-34.0); Mean Corpuscular Volume 97.7 fL (80.0-100.0); Mean Platelet Volume 8.6 fL (7.0-11.0); Mono # (Auto) 0.5 th/mm3 (0.0-0.9); Neut % (Auto) 72.3 % (16.0-70.0); Platelet Count 175 th/mm3 (150-450); Red Blood Count 3.54 mil/mm3 (4.00-5.30); Red Cell Distribution Width 13.6 % (11.6-17.2); White Blood Count 6.9 th/mm3 (4.0-11.0)
[2018-05-18 10:17] LABS: Calcium 9.1 mg/dL (8.5-10.1); Carbon Dioxide 24.7 meq/L (21.0-32.0); Potassium 3.4 meq/L (3.5-5.1)
[2018-05-18] MEDS: Sodium Chlor 0.9% Inj 500 ML IV.CONT SCH (14:32)
[2018-05-19] MEDS: Sodium Chlor 0.9% Inj 500 ML IV.CONT SCH ×3 (00:45→20:57)
[2018-05-19] MEDS: Insulin NovoLOG Aspart Correctional Sugar Inj SQ SCH ×5 (03:46→20:56)
[2018-05-19] MEDS: Heparin - SQ 10,000 UNITS/ML Vial SQ SCH ×3 (06:13→21:02)
[2018-05-19] MEDS: Ciprofloxacin 250 MG Tablet PO SCH ×2 (08:24→20:56)
[2018-05-19] MEDS: Senna/Docusate Sodium 8.6/50 MG Tablet PO SCH ×2 (08:24→20:56)
[2018-05-19] MEDS: Sodium Chloride 0.9% 2 ML Flush BID IV.FLUSH SCH ×2 (08:24→20:57)
[2018-05-19 08:26] LABS: Carbon Dioxide 27.1 meq/L (21.0-32.0); Potassium 3.4 meq/L (3.5-5.1)
--- NOTE | 2018-05-19 14:28 | P.PN ---
Subjective Interval history: Patient is seen lying in bed. She reports that she is doing well with no new episodes of dizziness while being helped to the commode. No chest pain or shortness of breath. No nausea vomiting or diarrhea. no adverse events per nursing. Physical Exam Vital signs: Vital Signs 05/18/18 15:45 05/18/18 19:07 05/18/18 19:12 Temperature 98.0 F 98.2 F Pulse Rate 60 60 Respiratory Rate 16 18 Blood Pressure 189/78 H 227/96 H 233/100 H Pulse Oximetry 97 97 05/18/18 19:40 05/19/18 00:00 05/19/18 03:49 Temperature 98.2 F Pulse Rate 64 65 Respiratory Rate 15 17 Blood Pressure 144/67 H Pulse Oximetry 95 05/19/18 04:15 05/19/18 08:00 05/19/18 09:50 Temperature 98.3 F Pulse Rate 73 59 L 61 Respiratory Rate 16 Blood Pressure 165/71 H Pulse Oximetry 97 05/19/18 12:00 Temperature 98.2 F Pulse Rate 61 Respiratory Rate 16 Blood Pressure 188/75 H Pulse Oximetry 97 Intake & Output 05/18/18 05/19/18 05/19/18 18:59 06:59 18:59 Intake Total 670 / 670 Output Total 800 / 800 350 / 350 Balance -800 / -800 320 / 320 Intake: IV 500 / 500 NS Inj 500 ML @ 50 mls/hr IV. 500 / 500 CONT .Q10H [facility] Rx#:[id number] Oral 170 / 170 Output: Urine 800 / 800 350 / 350 Other: Date of Last Bowel Movement 05/14/18 05/19/18 Narrative: Gen.: No acute distress Head: Normocephalic. Atraumatic. EENT: Pupils equal round and reactive to light. Nose without drainage. Airway intact. Throat without injection. Cardiovascular: Regular rate and rhythm. No murmurs, rubs or gallops. Respiratory: Lungs clear to auscultation bilaterally. No wheezes or rhonchi. Abdomen: Soft, nontender, nondistended. Musculoskeletal: No gross deformities. No edema. Skin: No obvious rashes or erythema. Neuro: Sensory and motor grossly intact. Cranial nerves II through XII grossly intact. Results - Labs CBC & Chem 7: 05/18/18 09:45 05/19/18 07:00 Laboratory Results - last 24 hr 05/18/18 05/18/18 05/19/18 17:37 20:13 03:46 Sodium Potassium Chloride Carbon Dioxide Anion Gap BUN Creatinine Estimated GFR POC Glucose 125 H 131 H 165 H Random Glucose Calcium 05/19/18 05/19/18 05/19/18 07:00 08:23 12:46 Sodium 142 Potassium 3.4 L Chloride 105 Carbon Dioxide 27.1 Anion Gap 10 BUN 37 H Creatinine 1.34 H Estimated GFR 46 L POC Glucose 168 H 154 H Random Glucose 168 H Calcium 9.0 Assessment and Plan - Plan 1. Hypertensive urgency at the presentation now with orthostatic. Supine BP pressure high hold BP meds for now-was started on on Procardia and hydrochlorothiazide at admit. We will continue to hold HCTZ due to renal function. Stop Procardia and start Norvasc 5 mg instead. will recheck the BP for orthostatic changes. 2. Nausea/vomiting Resolved 3. Altered mental status Suspect secondary to patient's underlying dementia/ and UTI Head CT negative for acute process 4.UTI- UC with Klebsiella; started on Cipro 5. Diabetes mellitus Sliding-scale insulin Monitor blood glucose 6. Hyperlipidemia/CAD Continue home medications once reconciled 7- acute kidney injury start on IV fluid and monitor renal function closely. Improving slowly. FEN Heart healthy diet Electrolytes: Monitor and replete as needed Heparin Discharge Planning: likely rehab.
[2018-05-19] MEDS: amLODIPine 5 MG Tablet PO SCH (16:19)
[2018-05-20] MEDS: Sodium Chlor 0.9% Inj 500 ML IV.CONT SCH ×2 (02:00→15:30)
[2018-05-20] MEDS: Insulin NovoLOG Aspart Correctional Sugar Inj SQ SCH ×5 (02:17→21:41)
[2018-05-20] MEDS: Heparin - SQ 10,000 UNITS/ML Vial SQ SCH ×3 (06:26→21:41)
[2018-05-20 07:36] LABS: Calcium 8.9 mg/dL (8.5-10.1); Carbon Dioxide 25.7 meq/L (21.0-32.0); Potassium 3.5 meq/L (3.5-5.1)
--- NOTE | 2018-05-20 09:15 | P.PN ---
Subjective Interval history: Patient is seen lying in bed eating breakfast. She tells me that she feels good and would like to go home if possible. No syncope or dizziness. No chest pain or shortness of breath. No nausea vomiting or diarrhea. Physical Exam Vital signs: Vital Signs 05/19/18 09:50 05/19/18 12:00 05/19/18 16:29 Temperature 98.2 F Pulse Rate 61 61 63 Respiratory Rate 16 16 Blood Pressure 188/75 H 182/82 H Pulse Oximetry 97 98 05/19/18 18:00 05/19/18 20:00 05/19/18 23:24 Temperature 98.0 F 97.9 F Pulse Rate 61 63 Respiratory Rate 16 20 18 Blood Pressure 169/74 H 170/74 H Pulse Oximetry 97 94 L 05/20/18 00:30 05/20/18 03:52 Temperature 98.2 F 97.7 F Pulse Rate 60 60 Respiratory Rate 18 20 Blood Pressure 165/70 H 177/78 H Pulse Oximetry 95 97 Intake & Output 05/19/18 05/20/18 05/20/18 18:59 06:59 18:59 Intake Total 0 / 0 1076 / 1076 Output Total 200 / 200 625 / 625 Balance -200 / -200 451 / 451 Intake: IV 836 / 836 NS Inj 500 ML @ 50 mls/hr IV. 836 / 836 CONT .Q10H [facility] Rx#:[id number] Oral 0 / 0 240 / 240 Output: Urine 200 / 200 625 / 625 Other: Date of Last Bowel Movement 05/19/18 05/19/18 Narrative: Gen.: No acute distress Head: Normocephalic. Atraumatic. EENT: Pupils equal round and reactive to light. Nose without drainage. Airway intact. Throat without injection. Cardiovascular: Regular rate and rhythm. No murmurs, rubs or gallops. Respiratory: Lungs clear to auscultation bilaterally. No wheezes or rhonchi. Abdomen: Soft, nontender, nondistended. Musculoskeletal: No gross deformities. No edema. Skin: No obvious rashes or erythema. Neuro: Sensory and motor grossly intact. Cranial nerves II through XII grossly intact. Results - Labs CBC & Chem 7: 05/18/18 09:45 05/20/18 05:40 Laboratory Results - last 24 hr 05/19/18 05/19/1805/19/18 12:46 17:33 20:09 Sodium Potassium Chloride Carbon Dioxide Anion Gap BUN Creatinine Estimated GFR POC Glucose 154 H 122 H 148 H Random Glucose Calcium 05/20/18 05/20/18 05/20/18 02:08 05:40 07:59 Sodium 140 Potassium 3.5 Chloride 103 Carbon Dioxide 25.7 Anion Gap 11 BUN 27 H Creatinine 1.13 H Estimated GFR 56 L POC Glucose 144 H 158 H Random Glucose 134 H Calcium 8.9 Assessment and Plan - Plan 1. Hypertensive urgency at the presentation now with orthostatic. Supine BP pressure high hold BP meds for now-was started on on Procardia and hydrochlorothiazide at admit. We will continue to hold HCTZ due to renal function. Stop Procardia and start Norvasc 5 mg instead. will recheck the BP for orthostatic changes. 2. Nausea/vomiting Resolved 3. Altered mental status Suspect secondary to patient's underlying dementia/ and UTI Head CT negative for acute process 4.UTI- UC with Klebsiella; started on Cipro 5. Diabetes mellitus Sliding-scale insulin Monitor blood glucose 6. Hyperlipidemia/CAD Continue home medications once reconciled 7- acute kidney injury start on IV fluid and monitor renal function closely. Improving slowly. FEN Heart healthy diet Electrolytes: Monitor and replete as needed Heparin Discharge Planning: likely rehab.
--- NOTE | 2018-05-20 09:15 | P.DS ---
Date of admission: 05/18/18 15:41 Primary care physician: Emiliano Shoemaker MD Attending physician on discharge: Tanya Peace Anticipated date of discharge: 05/20/18 Brief History from admission: 78-year-old female with a past medical history significant for dementia, hypertension, coronary artery disease, hyperlipidemia, diabetes mellitus and osteoarthritis presents to the emergency department for evaluation of nausea and vomiting with dizziness. The patient reports that she has not been feeling well recently and endorses accompanying chills with a headache. She denies any visual changes. Blood pressure on arrival to the emergency department was 233/ 100. The patient is unable to tell me what medication she takes at home. She denies any chest pain or shortness of breath. No abdominal pain or diarrhea. No lateralizing signs/symptoms. DS: Diagnosis - Discharge Diagnosis (1) Orthostatic hypotension Status: Chronic (2) UTI (urinary tract infection) Status: Acute (3) PRISCILA (acute kidney injury) Status: Resolved (4) Acute alteration in mental status Status: Resolved (5) Hypertensive urgency Status: Resolved DS: Medications - Discharge Medications Prescriptions: amlodipine [Norvasc] 5 mg PO DAILY #30 tab ciprofloxacin HCl 250 mg PO Q12HR #10 tab DS: Summary Hospital Course: patient is an 78-year-old -[place] female who initially presented with hypertensive urgency and altered mental status. Was found to have UTI and AK I/ dehydration which was likely contributing to her confusion. She has a history of multiple visits and is a poor historian. Suspect difficulty complying with medical regimen due to mild dementia. AK I improved with rehydration. Hypertensive emergency resolved however patient was found to be mildly orthostatic. Still requiring blood pressure control so Norvasc 5 mg was added. Record indicates that patient was previously on beta-christine however her heart rate is too low to restart. UTI positive for Klebsiella patient is started on Cipro and will be discharged with same. - Time Spent with Patient Total time spent providing and/or coordinating discharge services: Less than 30 minutes - Quality: VTE Deep Vein Thrombosis/Pulmonary Embolism Present on Admission: No Exam Vital signs: Vital Signs 05/19/18 09:50 05/19/18 12:00 05/19/18 16:29 Temperature 98.2 F Pulse Rate 61 61 63 Respiratory Rate 16 16 Blood Pressure 188/75 H 182/82 H Pulse Oximetry 97 98 05/19/18 18:00 05/19/18 20:00 05/19/18 23:24 Temperature 98.0 F 97.9 F Pulse Rate 61 63 Respiratory Rate 16 20 18 Blood Pressure 169/74 H 170/74 H Pulse Oximetry 97 94 L 05/20/18 00:30 05/20/18 03:52 Temperature 98.2 F 97.7 F Pulse Rate 60 60 Respiratory Rate 18 20 Blood Pressure 165/70 H 177/78 H Pulse Oximetry 95 97 Intake & Output 05/19/18 05/20/18 05/20/18 18:59 06:59 18:59 Intake Total 0 / 0 1076 / 1076 Output Total 200 / 200 625 / 625 Balance -200 / -200 451 / 451 Intake: IV 836 / 836 NS Inj 500 ML @ 50 mls/hr IV. 836 / 836 CONT .Q10H [facility] Rx#:[id number] Oral 0 / 0 240 / 240 Output: Urine 200 / 200 625 / 625 Other: Date of Last Bowel Movement 05/19/18 05/19/18 Narrative: Gen.: No acute distress Head: Normocephalic. Atraumatic. EENT: Pupils equal round and reactive to light. Nose without drainage. Airway intact. Throat without injection. Cardiovascular: Regular rate and rhythm. No murmurs, rubs or gallops. Respiratory: Lungs clear to auscultation bilaterally. No wheezes or rhonchi. Abdomen: Soft, nontender, nondistended. Musculoskeletal: No gross deformities. No edema. Skin: No obvious rashes or erythema. Neuro: Sensory and motor grossly intact. Cranial nerves II through XII grossly intact. Results Procedures completed during hospitalization: none Labs on day of discharge: Labs from last 24 hours 05/20/18 05/20/18 05/20/18 07:59 05:40 02:08 Sodium 140 Potassium 3.5 Chloride 103 Carbon Dioxide 25.7 Anion Gap 11 BUN 27 H Creatinine 1.13 H Estimated GFR 56 L POC Glucose 158 H 144 H Random Glucose 134 H Calcium 8.9 05/19/18 05/19/18 05/19/18 20:09 17:33 12:46 Sodium Potassium Chloride Carbon Dioxide Anion Gap BUN Creatinine Estimated GFR POC Glucose 148 H 122 H 154 H Random Glucose Calcium - Impressions ITS Impressions Chest X-Ray 05/14/18 18:15 CONCLUSION: No acute cardiopulmonary process. Head CT 05/14/18 18:15 CONCLUSION: 1. No acute abnormality seen. 2. Suspected atrophy and small vessel ischemic change in the white matter. . Discharge Plan - Discharge Disposition Patient Disposition: /[facility] - Discharge Condition Condition: Stable - Discharge Order Discharge Orders: Discharge Order (Routine); Ordered 05/20/18 Ordered By: Sabina Stewart - Physicians Team Primary Care Provider: Emiliano Shoemaker Attending Provider: Tanya Peace Other Providers: [facility],Agency
[2018-05-20] MEDS: Senna/Docusate Sodium 8.6/50 MG Tablet PO SCH ×2 (09:37→21:41)
[2018-05-20] MEDS: Ciprofloxacin 500 MG Tablet PO SCH ×2 (09:37→21:40)
[2018-05-20] MEDS: amLODIPine 5 MG Tablet PO SCH (09:37)
[2018-05-20] MEDS: Sodium Chloride 0.9% 2 ML Flush BID IV.FLUSH SCH ×2 (09:37→21:42)
[2018-05-20] MEDS: Ciprofloxacin 250 MG Tablet PO SCH (09:55)
[2018-05-20] MEDS ORDERED: amLODIPine 5 MG Tablet PO ONE (17:00)
[2018-05-21] MEDS: Sodium Chlor 0.9% Inj 500 ML IV.CONT SCH (00:14)
[2018-05-21] MEDS: Insulin NovoLOG Aspart Correctional Sugar Inj SQ SCH ×3 (03:04→13:14)
[2018-05-21] MEDS: Heparin - SQ 10,000 UNITS/ML Vial SQ SCH ×2 (05:37→13:14)
[2018-05-21] MEDS ORDERED: amLODIPine 10 MG Tablet PO SCH (09:00)
--- NOTE | 2018-05-21 09:04 | P.PN ---
Subjective Interval history: Follow-up hypertension. BP readings much improved. Patient has no complaints. States she is fine. Physical Exam Vital signs: Vital Signs 05/20/18 12:00 05/20/18 14:36 05/20/18 20:00 Temperature 98 F 98.0 F Pulse Rate 65 67 68 Respiratory Rate 16 16 17 Blood Pressure 195/81 H 175/67 H 199/81 H Pulse Oximetry 99 96 99 05/20/18 22:30 05/21/18 00:00 05/21/18 07:55 Temperature 97.4 F L 97.8 F Pulse Rate 58 L 63 Respiratory Rate 16 17 Blood Pressure 168/72 H 128/56 L 154/70 H Pulse Oximetry 100 97 Intake & Output 05/20/18 05/21/18 05/21/18 18:59 06:59 18:59 Intake Total 764 / 764 200 / 200 Balance 764 / 764 200 / 200 Intake: IV 164 / 164 NS Inj 500 ML @ 50 mls/hr IV. 164 / 164 CONT .Q10H JAMES Rx#:[id number] Oral 600 / 600 200 / 200 Other: # Voids 1 # Incontinent Voids 3 Date of Last Bowel Movement 05/19/18 05/19/18 Narrative: Gen.: No acute distress Cardiovascular: Regular rate and rhythm. No murmurs, rubs or gallops. Respiratory: Lungs clear to auscultation bilaterally. No wheezes or rhonchi. Abdomen: Soft, nontender, nondistended. Musculoskeletal: No gross deformities. No edema. Skin: No obvious rashes or erythema. Neuro: Sensory and motor grossly intact. Cranial nerves II through XII grossly intact. Oriented to person and place not to time Results - Labs CBC & Chem 7: 05/18/18 09:45 05/20/18 05:40 Laboratory Results - last 24 hr 05/20/18 05/20/18 05/20/18 11:59 16:44 19:56 POC Glucose 154 H 148 H 137 H 05/21/18 03:03 POC Glucose 139 H - Imaging ITS Impressions Chest X-Ray 05/14/18 18:15 CONCLUSION: No acute cardiopulmonary process. Head CT 05/14/18 18:15 CONCLUSION: 1. No acute abnormality seen. 2. Suspected atrophy and small vessel ischemic change in the white matter. . - Procedures none Assessment and Plan - Assessment (1) Orthostatic hypotension Code(s): I95.1 - Orthostatic hypotension Status: Chronic (2) UTI (urinary tract infection) Code(s): N39.0 - Urinary tract infection, site not specified Status: Acute (3) PRISCILA (acute kidney injury) Code(s): N17.9 - Acute kidney failure, unspecified Status: Resolved (4) Acute alteration in mental status Code(s): R41.82 - Altered mental status, unspecified Status: Resolved (5) Hypertensive urgency Code(s): I16.0 - Hypertensive urgency Status: Resolved - Plan 1. Hypertensive urgency at the presentation was orthostatic. Supine BP pressure high held BP meds then restarted because of uncontrolled hypertension. Norvasc increased to 10 mg. Also on hydrochlorothiazide. Repeat orthostatics today 2. Nausea/vomiting Resolved 3. Metabolic encephalopathy. Improved Suspect secondary to patient's underlying dementia/ and UTI Head CT negative for acute process 4.UTI- UC with Klebsiella; started on Cipro 5. Diabetes mellitus Sliding-scale insulin Monitor blood glucose 6. Hyperlipidemia/CAD Stable 7-chronic kidney disease stage 3. Nonoliguric FEN Heart healthy diet Electrolytes: Monitor and replete as needed Heparin Discharge Planning: Referred to [facility]
[2018-05-21] MEDS: Sodium Chloride 0.9% 2 ML Flush BID IV.FLUSH SCH (09:48)
[2018-05-21] MEDS: Senna/Docusate Sodium 8.6/50 MG Tablet PO SCH ×2 (09:48→09:49)
[2018-05-21] MEDS: Ciprofloxacin 500 MG Tablet PO SCH (09:48)
[2018-05-21] MEDS: hydroCHLOROthiazide 25 MG Tablet PO SCH (09:48)
[2018-05-21 12:22] VITALS: BP 143/78; PULSE 67; RESP 18; TEMP 98.1; O2SAT 100
== END 2018-05-21 15:14 ==
LOC: NEDA 18:02 → NEPE 18:02 → NEDA 05-15 00:30 → NEPGCP 05-15 00:32 → NEPHCDU 05-19 07:13 → N06 05-19 16:52
PROVIDERS: ADMIT Internal Medicine; ATTEND Internal Medicine

== ENCOUNTER 2018-07-07 16:37 | Observation (INO) ==
[2018-07-07 17:08] LABS: Baso % (Auto) 0.3 % (0.0-2.0); Eos % (Auto) 0.2 % (0.0-4.0); Hematocrit 45.8 % (35.0-46.0); Hemoglobin 14.8 gm/dL (11.6-15.3); Lymph # (Auto) 0.6 th/mm3 (1.0-4.8); Lymph % (Auto) 6.6 % (9.0-44.0); Mean Corpuscular HGB Conc 32.4 % (32.0-36.0); Mean Corpuscular Hemoglobin 31.8 pg (27.0-34.0); Mean Corpuscular Volume 98.2 fL (80.0-100.0); Mean Platelet Volume 10.6 fL (7.0-11.0); Mono # (Auto) 0.4 th/mm3 (0.0-0.9); Mono % (Auto) 4.1 % (0.0-8.0); Neut # (Auto) 8.7 th/mm3 (1.8-7.7); Neut % (Auto) 88.8 % (16.0-70.0); Platelet Count 187 th/mm3 (150-450); Red Blood Count 4.67 mil/mm3 (4.00-5.30); Red Cell Distribution Width 14.8 % (11.6-17.2); White Blood Count 9.8 th/mm3 (4.0-11.0)
--- NOTE | 2018-07-07 17:11 | XR ---
EXAM DATE: 07/07/2018 5:04 PM EST AGE/SEX: 78 years / Female INDICATIONS: Chest pain CLINICAL DATA: This is the patient's initial encounter. Patient reports that signs and symptoms have been present for 1 day and indicates a pain score of Nonresponsive. MEDICAL/SURGICAL HISTORY: . Cardiovascular disease. . CABG. COMPARISON: C, CHEST 1V SINGLE AP, 05/14/2018. . FINDINGS: Median sternotomy wires are noted status post cardiac surgery. The heart is stable. The pulmonary vas cular pattern is normal. The lungs are clear. CONCLUSION: No acute cardiopulmonary disease. Electronically signed by: Abner Be MD 07/07/2018 5:10 PM EST
--- NOTE | 2018-07-07 17:17 | ED ---
HPI General Chief Complaint: Altered Mental Status Stated Complaint: alter mental Time Seen by Provider: 07/07/18 16:42 Source: EMS and old records reviewed Mode of arrival: EMS Limitations: altered mental status History of Present Illness HPI narrative: Ms Robert is an 78 year old female who presents to the ED via [facility] after she was found with AMS at [facility] where she resides. Per report from [facility], staff did not know when she was last seen normal, which is awake and talking. Upon [facility] arrival she was awake but did not follow commands or answer questions. Staff told [facility] that the patient began refusing all medications, food, and drink several days ago and she was supposed to be transferred to hospice tomorrow. Upon arrival to the ED the patient is still awake and does not answer questions. She turns to voice and groans in response to painful stimuli. A DNR was found in her paperwork from the facility. According to her paperwork her PMH is significant for HTN, DM, and AFib. Of note history is really hard to obtain as there seems to be some inconsistencies with the story given by the back as well as from the facility. Patient herself cannot give any history whatsoever. It is unclear as to how long patient has been altered. MD complaint: Reports altered mental status and decreased responsiveness Onset (ago): unknown Related Data Home Medications Medication Instructions Recorded Confirmed amlodipine [Norvasc] 10 mg PO DAILY 07/07/18 07/07/18 donepezil [Aricept] 10 mg PO HS 07/07/18 07/07/18 dronabinol 2.5 mg PO HS 07/07/18 07/07/18 gabapentin 100 mg PO TID 07/07/18 07/07/18 glipizide 2.5 mg PO BID 07/07/18 07/07/18 hydralazine 25 mg PO TID 07/07/18 07/07/18 insulin aspart U-100 [Novolog 1 sliding scale dose SUBCUT ACHS 07/07/18 07/07/18 U-100 Insulin aspart] quetiapine [Seroquel] 25 mg PO TID 07/07/18 07/07/18 sennosides [Senna Laxative] 8.6 mg PO BID 07/07/18 07/07/18 Allergies Allergy/AdvReac Type Severity Reaction Status Date / Time pentazocine Allergy Severe CONFUSION,SLUURED Verified 07/07/18 16:54 WORDS Review of Systems ROS: all other systems reviewed are negative [facility] Medical History Medical History Coronary artery disease (Acute) Dementia (Acute) Diabetes (Acute) Hyperlipidemia (Acute) Hypertension (Acute) Osteoarthritis (Acute) Surgical History Surgical History History of bilateral carotid endarterectomy (Acute) History of cataract surgery (Acute) History of cholecystectomy (Acute) History of coronary artery bypass graft (Acute) Family History Family History Other Family history unknown Social History Social History Substance History: Unable to Obtain Second Hand Smoke Exposure: No Smoking Status: Unknown if ever smoked Tobacco Type: Cigarettes How Often Do You Have a Drink Containing Alcohol: Unable to Obtain Recent Travel in [facility] within the Last 8 Weeks: No Recent Out of Country Travel within the Last 8 Weeks: No Immunization History Tetanus Immunization: Unable to Assess Exam Narrative Exam Narrative: GENERAL: Patient is a well developed well nourished female who appears confused. SKIN: Warm and diaphoretic. HEAD: Atraumatic. Normocephalic. EYES: Pupils equal and round. No scleral icterus. No injection or drainage. ENT: No nasal bleeding or discharge. Mucous membranes pink and moist. Tongue is midline. No uvula deviation NECK: Trachea midline. No JVD. CARDIOVASCULAR: Tachycardic and regular rhythm. No murmurs rubs or gallops. RESPIRATORY: No accessory muscle use. Clear to auscultation. Breath sounds equal bilaterally. GASTROINTESTINAL: Abdomen soft and nondistended. Groaning with palpation of the abdomen diffusely. Hepatic and splenic margins not palpable. MUSCULOSKELETAL: Extremities without clubbing, cyanosis, or edema. No obvious deformities. 2+ pulses in the upper and lower extremities. NEUROLOGICAL: Awake but not alert or oriented. Patient does not respond to commands for neurologic testing. Course Initial Documented Vital Signs Pulse Rate 110 H 07/07/18 16:46 Respiratory Rate 14 07/07/18 16:46 Blood Pressure 152/85 H 07/07/18 16:46 Pulse Oximetry 97 07/07/18 16:46 Last Documented Vital Signs Temperature 98.1 F 07/10/18 12:46 Pulse Rate 94 H 07/10/18 12:46 Respiratory Rate 18 07/10/18 12:46 Blood Pressure 179/86 H 07/10/18 12:46 Pulse Oximetry 95 07/10/18 12:46 Medical Decision Making NIDIA Attestation NIDIA supervised visit: Yes Attestation: I, Dr. Vega, have reviewed the advance practice practitioner's documentation and am in agreement, met with the patient face to face, made the diagnosis, and the medical decision making was done by me. *My assessment and Findings: This is a patient who has dementia and resides in a long-term she is reportedly slated to enter hospice care this week. She was sent us for acute altered mental status. She did have a DNR in her long-term chart. While attempting to confirm with family that the patient was indeed slated to be admitted to hospice, a workup was begun. I did later speak with her power of workers compensation attorney. The power of workers compensation attorney confirms that the patient is a DNR and that she would like for the patient to be admitted to hospice. The hospice nurse also spoke with the power of workers compensation attorney to confirm their wishes. See Marlen Harmon note for a more detailed H&P, final diagnosis and disposition MDM Narrative Medical decision making narrative: 78-year-old female that presents to the ED for evaluation of altered mental status. Patient was properly examined and was found to have signs and symptoms consistent with altered mental status and dementia. She is very hyperglycemic. Unclear as to how long patient has been more altered than normal. Initial report was that patient has been gradually getting worse and currently not eating or drinking anything. She is also refusing medications. My nurse spoke with the facility and apparently the nurse gave report stated that apparently patient did eat and take her medications today. Per the report from them apparently she also started deconditioning around this afternoon. Labs and imaging were ordered. Question whether patient is DNR. We could not get in contact with power of workers compensation attorney is apparently there was mention the patient may be going to hospice. Labs and imaging were ordered as it is unclear as to the patient's condition and need for medical treatment. Labs and imaging did show what appears to be acute kidney failure with hyperglycemia and possible sepsis from UTI. Patient did have an episode where she vomited and she was tachycardic as well as hypertensive. She was given Cardizem with good results. She was started on fluids as well as ceftriaxone to cover for the UTI and insulin. We were finally able to get a hold of the family. We were initially in contact with the who himself stated that the patient herself had been declining for the past couple of weeks more progressively this week. Apparently she has not been eating or drinking anything and she has been refusing her medications and this is the reason they were considering hospice. We were also able to get in contact with the power of workers compensation attorney as well and she contributed this story as well. Apparently she is out of town. We were able to speak with her hospice at [facility] who came here and evaluated the patient and spoke with the power of workers compensation attorney. Power of workers compensation attorney agreed the patient is DNR. Patient was put on DNR. Per hospice nurse as well as per power of workers compensation attorney at this time recommendations for admission for medical treatment and patient will be moved to inpatient hospice center tomorrow as unfortunately the power of workers compensation attorney cannot be here to fill the paperwork to get the process started. They agree with patient being started on antibiotics and treated medically but did not want any chest compressions or tubing. They understand this and this was communicated by both me, my attending as well as the [facility] ED hospice nurse. Patient was admitted to Dr. Singh who agreed admission to her service. Medical Screen Exam Complete: Yes Emergency Medical Condition: Yes Differential Diagnosis Differential Diagnosis: Altered mental status versus dementia versus failure to thrive versus dying versus UTI versus sepsis Medical Records Medical records reviewed: Yes I reviewed the patient's medical records. Lab Data Lab results reviewed: Yes I reviewed the patient's lab results. Result diagrams: 07/10/18 03:53 07/10/18 09:47 Lab Results 07/07/18 07/07/18 07/07/18 Range/Units 16:43 16:50 16:58 WBC 9.8 (4.0-11.0) th/mm3 RBC 4.67 (4.00-5.30) mil/mm3 Hgb 14.8 (11.6-15.3) gm/dL Hct 45.8 (35.0-46.0) % MCV 98.2 (80.0-100.0) fL MCH 31.8 (27.0-34.0) pg MCHC 32.4 (32.0-36.0) % RDW 14.8 (11.6-17.2) % Plt Count 187 (150-450) th/mm3 MPV 10.6 (7.0-11.0) fL Neut % (Auto) 88.8 H (16.0-70.0) % Lymph % (Auto) 6.6 L (9.0-44.0) % Hughes % (Auto) 4.1 (0.0-8.0) % Eos % (Auto) 0.2 (0.0-4.0) % Baso % (Auto) 0.3 (0.0-2.0) % Neut # (Auto) 8.7 H (1.8-7.7) th/mm3 Lymph # (Auto) 0.6 L (1.0-4.8) th/mm3 Hughes # (Auto) 0.4 (0.0-0.9) th/mm3 Eos # (Auto) 0.0 (0.0-0.4) th/mm3 Baso # (Auto) 0.0 (0.0-0.2) th/mm3 WBC Differential . Differential Comment Auto diff final Sodium (136-145) meq/L Potassium (3.5-5.1) meq/L Chloride (98-107) meq/L Carbon Dioxide (21.0-32.0) meq/L Anion Gap (5-15) meq/L BUN (7-18) mg/dL Creatinine (0.50-1.00) mg/dL Estimated GFR (>89) mL/min POC Glucose 454 H* (68-110) mg/dl Random Glucose (74-106) mg/dL Lactic Acid 4.2 H* (0.4-2.0) mmol/L Calcium (8.5-10.1) mg/dL Magnesium (1.5-2.5) mg/dL Total Bilirubin (0.2-1.0) mg/dL AST (15-37) U/L ALT (10-53) U/L Alkaline Phosphatase (45-117) U/L Troponin I (0.02-0.05) ng/mL Total Protein (6.4-8.2) g/dL Albumin (3.4-5.0) g/dL Urine Color (Yellw/Straw) Urine Clarity (Clear) Urine pH (5.0-8.5) Ur Specific Buckeye (1.002-1.035) Urine Protein (Neg-Trace) mg/dL Urine Glucose (UA) (Negative) mg/dL Urine Ketones (Negative) mg/dL Urine Occult Blood (Negative) Urine Nitrate (Negative) Urine Bilirubin (Negative) Urine Urobilinogen (Less than 2) mg/dL Ur Leukocyte Esterase (Negative) Urine RBC (0-3) /hpf Urine WBC (0-5) /hpf Ur Squamous Epith Cells (0-5) /hpf Urine Bacteria (None) /hpf Micro UA Comment Ur Microscopic Review Urine Culture Comments 07/07/18 07/07/18 07/07/18 Range/Units 16:58 17:45 19:38 WBC (4.0-11.0) th/mm3 RBC (4.00-5.30) mil/mm3 Hgb (11.6-15.3) gm/dL Hct (35.0-46.0) % MCV (80.0-100.0) fL MCH (27.0-34.0) pg MCHC (32.0-36.0) % RDW (11.6-17.2) % Plt Count (150-450) th/mm3 MPV (7.0-11.0) fL Neut % (Auto) (16.0-70.0) % Lymph % (Auto) (9.0-44.0) % Hughes % (Auto) (0.0-8.0) % Eos % (Auto) (0.0-4.0) % Baso % (Auto) (0.0-2.0) % Neut # (Auto) (1.8-7.7) th/mm3 Lymph # (Auto) (1.0-4.8) th/mm3 Hughes # (Auto) (0.0-0.9) th/mm3 Eos # (Auto) (0.0-0.4) th/mm3 Baso # (Auto) (0.0-0.2) th/mm3 WBC Differential Differential Comment Sodium 152 H (136-145) meq/L Potassium 4.6 (3.5-5.1) meq/L Chloride 114 H (98-107) meq/L Carbon Dioxide 26.0 (21.0-32.0) meq/L Anion Gap 12 (5-15) meq/L BUN 108 H (7-18) mg/dL Creatinine 3.99 H (0.50-1.00) mg/dL Estimated GFR 13 L (>89) mL/min POC Glucose 419 H (68-110) mg/dl Random Glucose 511 H* (74-106) mg/dL Lactic Acid (0.4-2.0) mmol/L Calcium 10.1 (8.5-10.1) mg/dL Magnesium 3.1 H (1.5-2.5) mg/dL Total Bilirubin 1.6 H (0.2-1.0) mg/dL AST 96 H (15-37) U/L ALT 125 H (10-53) U/L Alkaline Phosphatase 118 H (45-117) U/L Troponin I 0.14 H (0.02-0.05) ng/mL Total Protein 9.1 H (6.4-8.2) g/dL Albumin 3.8 (3.4-5.0) g/dL Urine Color Yadira (Yellw/Straw) Urine Clarity Turbid H (Clear) Urine pH 5.0 (5.0-8.5) Ur Specific Buckeye 1.018 (1.002-1.035) Urine Protein 100 H (Neg-Trace) mg/dL Urine Glucose (UA) 50 (Negative) mg/dL Urine Ketones Negative (Negative) mg/dL Urine Occult Blood Small H (Negative) Urine Nitrate Negative (Negative) Urine Bilirubin Negative (Negative) Urine Urobilinogen 4 or greater (Less than 2) mg/dL Ur Leukocyte Esterase Moderate H (Negative) Urine RBC 15 H (0-3) /hpf Urine WBC (0-5) /hpf Ur Squamous Epith Cells 19 (0-5) /hpf Urine Bacteria Many H (None) /hpf Micro UA Comment Cath-culture ind Ur Microscopic Review Not Reportable Urine Culture Comments Cath-cult indicated 07/07/18 07/07/18 07/08/18 Range/Units 19:40 21:07 00:59 WBC (4.0-11.0) th/mm3 RBC (4.00-5.30) mil/mm3 Hgb (11.6-15.3) gm/dL Hct (35.0-46.0) % MCV (80.0-100.0) fL MCH (27.0-34.0) pg MCHC (32.0-36.0) % RDW (11.6-17.2) % Plt Count (150-450) th/mm3 MPV (7.0-11.0) fL Neut % (Auto) (16.0-70.0) % Lymph % (Auto) (9.0-44.0) % Hughes % (Auto) (0.0-8.0) % Eos % (Auto) (0.0-4.0) % Baso % (Auto) (0.0-2.0) % Neut # (Auto) (1.8-7.7) th/mm3 Lymph # (Auto) (1.0-4.8) th/mm3 Hughes # (Auto) (0.0-0.9) th/mm3 Eos # (Auto) (0.0-0.4) th/mm3 Baso # (Auto) (0.0-0.2) th/mm3 WBC Differential Differential Comment Sodium (136-145) meq/L Potassium (3.5-5.1) meq/L Chloride (98-107) meq/L Carbon Dioxide (21.0-32.0) meq/L Anion Gap (5-15) meq/L BUN (7-18) mg/dL Creatinine (0.50-1.00) mg/dL Estimated GFR (>89) mL/min POC Glucose 393 H 200 H (68-110) mg/dl Random Glucose (74-106) mg/dL Lactic Acid 4.0 H (0.4-2.0) mmol/L Calcium (8.5-10.1) mg/dL Magnesium (1.5-2.5) mg/dL Total Bilirubin (0.2-1.0) mg/dL AST (15-37) U/L ALT (10-53) U/L Alkaline Phosphatase (45-117) U/L Troponin I (0.02-0.05) ng/mL Total Protein (6.4-8.2) g/dL Albumin (3.4-5.0) g/dL Urine Color (Yellw/Straw) Urine Clarity (Clear) Urine pH (5.0-8.5) Ur Specific [place]key[place] (1.002-1.035) Urine Protein (Neg-Trace) mg/dL Urine Glucose (UA) (Negative) mg/dL Urine Ketones (Negative) mg/dL Urine Occult Blood (Negative) Urine Nitrate (Negative) Urine Bilirubin (Negative) Urine Urobilinogen (Less than 2) mg/dL Ur Leukocyte Esterase (Negative) Urine RBC (0-3) /hpf Urine WBC (0-5) /hpf Ur Squamous Epith Cells (0-5) /hpf Urine Bacteria (None) /hpf Micro UA Comment Ur Microscopic Review Urine Culture Comments 07/08/18 07/08/18 07/08/18 Range/Units 08:37 13:03 17:33 WBC (4.0-11.0) th/mm3 RBC (4.00-5.30) mil/mm3 Hgb (11.6-15.3) gm/dL Hct (35.0-46.0) % MCV (80.0-100.0) fL MCH (27.0-34.0) pg MCHC (32.0-36.0) % RDW (11.6-17.2) % Plt Count (150-450) th/mm3 MPV (7.0-11.0) fL Neut % (Auto) (16.0-70.0) % Lymph % (Auto) (9.0-44.0) % Hughes % (Auto) (0.0-8.0) % Eos % (Auto) (0.0-4.0) % Baso % (Auto) (0.0-2.0) % Neut # (Auto) (1.8-7.7) th/mm3 Lymph # (Auto) (1.0-4.8) th/mm3 Hughes # (Auto) (0.0-0.9) th/mm3 Eos # (Auto) (0.0-0.4) th/mm3 Baso # (Auto) (0.0-0.2) th/mm3 WBC Differential Differential Comment Sodium (136-145) meq/L Potassium (3.5-5.1) meq/L Chloride (98-107) meq/L Carbon Dioxide (21.0-32.0) meq/L Anion Gap (5-15) meq/L BUN (7-18) mg/dL Creatinine (0.50-1.00) mg/dL Estimated GFR (>89) mL/min POC Glucose 233 H 232 H 226 H (68-110) mg/dl Random Glucose (74-106) mg/dL Lactic Acid (0.4-2.0) mmol/L Calcium (8.5-10.1) mg/dL Magnesium (1.5-2.5) mg/dL Total Bilirubin (0.2-1.0) mg/dL AST (15-37) U/L ALT (10-53) U/L Alkaline Phosphatase (45-117) U/L Troponin I (0.02-0.05) ng/mL Total Protein (6.4-8.2) g/dL Albumin (3.4-5.0) g/dL Urine Color (Yellw/Straw) Urine Clarity (Clear) Urine pH (5.0-8.5) Ur Specific Buckey[place] (1.002-1.035) Urine Protein (Neg-Trace) mg/dL Urine Glucose (UA) (Negative) mg/dL Urine Ketones (Negative) mg/dL Urine Occult Blood (Negative) Urine Nitrate (Negative) Urine Bilirubin (Negative) Urine Urobilinogen (Less than 2) mg/dL Ur Leukocyte Esterase (Negative) Urine RBC (0-3) /hpf Urine WBC (0-5) /hpf Ur Squamous Epith Cells (0-5) /hpf Urine Bacteria (None) /hpf Micro UA Comment Ur Microscopic Review Urine Culture Comments 07/09/18 07/09/18 07/09/18 Range/Units 08:54 12:03 17:48 WBC (4.0-11.0) th/mm3 RBC (4.00-5.30) mil/mm3 Hgb (11.6-15.3) gm/dL Hct (35.0-46.0) % MCV (80.0-100.0) fL MCH (27.0-34.0) pg MCHC (32.0-36.0) % RDW (11.6-17.2) % Plt Count (150-450) th/mm3 MPV (7.0-11.0) fL Neut % (Auto) (16.0-70.0) % Lymph % (Auto) (9.0-44.0) % Hughes % (Auto) (0.0-8.0) % Eos % (Auto) (0.0-4.0) % Baso % (Auto) (0.0-2.0) % Neut # (Auto) (1.8-7.7) th/mm3 Lymph # (Auto) (1.0-4.8) th/mm3 Hughes # (Auto) (0.0-0.9) th/mm3 Eos # (Auto) (0.0-0.4) th/mm3 Baso # (Auto) (0.0-0.2) th/mm3 WBC Differential Differential Comment Sodium (136-145) meq/L Potassium (3.5-5.1) meq/L Chloride (98-107) meq/L Carbon Dioxide (21.0-32.0) meq/L Anion Gap (5-15) meq/L BUN (7-18) mg/dL Creatinine (0.50-1.00) mg/dL Estimated GFR (>89) mL/min POC Glucose 253 H 231 H 168 H (68-110) mg/dl Random Glucose (74-106) mg/dL Lactic Acid (0.4-2.0) mmol/L Calcium (8.5-10.1) mg/dL Magnesium (1.5-2.5) mg/dL Total Bilirubin (0.2-1.0) mg/dL AST (15-37) U/L ALT (10-53) U/L Alkaline Phosphatase (45-117) U/L Troponin I (0.02-0.05) ng/mL Total Protein (6.4-8.2) g/dL Albumin (3.4-5.0) g/dL Urine Color (Yellw/Straw) Urine Clarity (Clear) Urine pH (5.0-8.5) Ur Specific Buckey[place] (1.002-1.035) Urine Protein (Neg-Trace) mg/dL Urine Glucose (UA) (Negative) mg/dL Urine Ketones (Negative) mg/dL Urine Occult Blood (Negative) Urine Nitrate (Negative) Urine Bilirubin (Negative) Urine Urobilinogen (Less than 2) mg/dL Ur Leukocyte Esterase (Negative) Urine RBC (0-3) /hpf Urine WBC (0-5) /hpf Ur Squamous Epith Cells (0-5) /hpf Urine Bacteria (None) /hpf Micro UA Comment Ur Microscopic Review Urine Culture Comments 07/09/18 07/10/18 07/10/18 Range/Units 21:24 03:53 06:16 WBC 7.3 (4.0-11.0) th/mm3 RBC 4.32 (4.00-5.30) mil/mm3 Hgb 13.6 (11.6-15.3) gm/dL Hct 42.6 (35.0-46.0) % MCV 98.5 (80.0-100.0) fL MCH 31.5 (27.0-34.0) pg MCHC 32.0 (32.0-36.0) % RDW 15.4 (11.6-17.2) % Plt Count 123 L D (150-450) th/mm3 MPV 11.3 H (7.0-11.0) fL Neut % (Auto) 81.9 H (16.0-70.0) % Lymph % (Auto) 12.1 (9.0-44.0) % Hughes % (Auto) 5.8 (0.0-8.0) % Eos % (Auto) 0.1 (0.0-4.0) % Baso % (Auto) 0.1 (0.0-2.0) % Neut # (Auto) 6.0 (1.8-7.7) th/mm3 Lymph # (Auto) 0.9 L (1.0-4.8) th/mm3 Hughes # (Auto) 0.4 (0.0-0.9) th/mm3 Eos # (Auto) 0.0 (0.0-0.4) th/mm3 Baso # (Auto) 0.0 (0.0-0.2) th/mm3 WBC Differential . Differential Comment Auto diff final Sodium 170 H* (136-145) meq/L Potassium 4.0 (3.5-5.1) meq/L Chloride 133 H (98-107) meq/L Carbon Dioxide 28.2 (21.0-32.0) meq/L Anion Gap 9 (5-15) meq/L BUN 76 H (7-18) mg/dL Creatinine 1.86 H (0.50-1.00) mg/dL Estimated GFR 32 L (>89) mL/min POC Glucose 198 H (68-110) mg/dl Random Glucose 274 H (74-106) mg/dL Lactic Acid (0.4-2.0) mmol/L Calcium 9.5 (8.5-10.1) mg/dL Magnesium (1.5-2.5) mg/dL Total Bilirubin (0.2-1.0) mg/dL AST (15-37) U/L ALT (10-53) U/L Alkaline Phosphatase (45-117) U/L Troponin I (0.02-0.05) ng/mL Total Protein (6.4-8.2) g/dL Albumin (3.4-5.0) g/dL Urine Color (Yellw/Straw) Urine Clarity (Clear) Urine pH (5.0-8.5) Ur Specific [place] (1.002-1.035) Urine Protein (Neg-Trace) mg/dL Urine Glucose (UA) (Negative) mg/dL Urine Ketones (Negative) mg/dL Urine Occult Blood (Negative) Urine Nitrate (Negative) Urine Bilirubin (Negative) Urine Urobilinogen (Less than 2) mg/dL Ur Leukocyte Esterase (Negative) Urine RBC (0-3) /hpf Urine WBC (0-5) /hpf Ur Squamous Epith Cells (0-5) /hpf Urine Bacteria (None) /hpf Micro UA Comment Ur Microscopic Review Urine Culture Comments 07/10/18 07/10/18 Range/Units 09:47 12:12 WBC (4.0-11.0) th/mm3 RBC (4.00-5.30) mil/mm3 Hgb (11.6-15.3) gm/dL Hct (35.0-46.0) % MCV (80.0-100.0) fL MCH (27.0-34.0) pg MCHC (32.0-36.0) % RDW (11.6-17.2) % Plt Count (150-450) th/mm3 MPV (7.0-11.0) fL Neut % (Auto) (16.0-70.0) % Lymph % (Auto) (9.0-44.0) % Hughes % (Auto) (0.0-8.0) % Eos % (Auto) (0.0-4.0) % Baso % (Auto) (0.0-2.0) % Neut # (Auto) (1.8-7.7) th/mm3 Lymph # (Auto) (1.0-4.8) th/mm3 Hughes # (Auto) (0.0-0.9) th/mm3 Eos # (Auto) (0.0-0.4) th/mm3 Baso # (Auto) (0.0-0.2) th/mm3 WBC Differential Differential Comment Sodium 170 H* (136-145) meq/L Potassium 4.0 (3.5-5.1) meq/L Chloride 133 H (98-107) meq/L Carbon Dioxide 27.9 (21.0-32.0) meq/L Anion Gap 9 (5-15) meq/L BUN 76 H (7-18) mg/dL Creatinine 2.02 H (0.50-1.00) mg/dL Estimated GFR 29 L (>89) mL/min POC Glucose 301 H (68-110) mg/dl Random Glucose 302 H (74-106) mg/dL Lactic Acid (0.4-2.0) mmol/L Calcium 9.6 (8.5-10.1) mg/dL Magnesium (1.5-2.5) mg/dL Total Bilirubin (0.2-1.0) mg/dL AST (15-37) U/L ALT (10-53) U/L Alkaline Phosphatase (45-117) U/L Troponin I (0.02-0.05) ng/mL Total Protein (6.4-8.2) g/dL Albumin (3.4-5.0) g/dL Urine Color (Yellw/Straw) Urine Clarity (Clear) Urine pH (5.0-8.5) Ur Specific [place] (1.002-1.035) Urine Protein (Neg-Trace) mg/dL Urine Glucose (UA) (Negative) mg/dL Urine Ketones (Negative) mg/dL Urine Occult Blood (Negative) Urine Nitrate (Negative) Urine Bilirubin (Negative) Urine Urobilinogen (Less than 2) mg/dL Ur Leukocyte Esterase (Negative) Urine RBC (0-3) /hpf Urine WBC (0-5) /hpf Ur Squamous Epith Cells (0-5) /hpf Urine Bacteria (None) /hpf Micro UA Comment Ur Microscopic Review Urine Culture Comments Imaging Data Attestation: I personally reviewed and interpreted this imaging study as follows : Radiologist's impression: Chest X-Ray 07/07/18 16:49 CONCLUSION: No acute cardiopulmonary disease. Head CT 07/07/18 16:49 CONCLUSION: 1. Diffuse cerebral atrophy. 2. Moderate periventricular and subcortical white matter small vessel ischemic changes bilaterally. 3. No acute infarct, acute hemorrhage, midline shift or extra-axial fluid collections. . Abdomen/Pelvis CT 07/07/18 19:05 CONCLUSION: 1. Ill-defined stranding/soft tissue fullness in the region of the pancreatic head extending cephalad to the periportal region. This is incompletely evaluated due to lack of IV and oral contrast. Differential considerations include pancreatitis in the appropriate clinical setting. Clinical correlation is recommended. 2. Mild to moderate superior endplate compression fracture of L2 vertebral body of unknown chronicity given lack of appropriate prior exams. 3. Indeterminate density 1.3 cm left adrenal mass. This can be further characterized with adrenal mass protocol MRI or CT exam on an outpatient basis as clinically appropriate. 4. Additional ancillary findings, as above. ECG Data Attestation: I personally reviewed and interpreted this ECG as follows: Interpretation: EKG shows sinus tachycardia but no sign of acute ischemia and arrhythmia read by me and attending. Discharge Plan Discharge Disposition Patient Disposition: 30 Still Patient Discharge Condition Condition: Critical Discharge Order Discharge Orders: Discharge Order (Routine); Ordered 07/10/18 Ordered By: Sabina Stewart ED Use Only Admit Order (Routine); Ordered 07/07/18 Ordered By: Da Lehman Discharge Details Anticipated Discharge Date: 07/10/18 Diagnosis: Altered mental status, UTI (urinary tract infection), PRISCILA (acute kidney injury) , Dementia, Acute hyperglycemia Physicians Team ED Provider: Dayanara Vega ED Midlevel Provider: Da Lehman Primary Care Provider: UNKNOWN, Attending Provider: Austin Hermosillo Other Providers: Beatriz Rivera ; Benito Suero Status ED Status: Left Department Discharge Information Discharge Date/Time: 07/07/18 22:12
[2018-07-07 17:42] LABS: Alanine Aminotransferase 125 U/L (10-53); Albumin 3.8 g/dL (3.4-5.0); Alkaline Phosphatase 118 U/L (45-117); Anion Gap 12 meq/L (5-15); Aspartate Aminotransferase 96 U/L (15-37); Blood Urea Nitrogen 108 mg/dL (7-18); Calcium 10.1 mg/dL (8.5-10.1); Chloride 114 meq/L (98-107); Glomerular Filtration Rate 13 mL/min (>89); Magnesium 3.1 mg/dL (1.5-2.5); Potassium 4.6 meq/L (3.5-5.1); Sodium 152 meq/L (136-145); Total Protein 9.1 g/dL (6.4-8.2); Troponin I 0.14 ng/mL (0.02-0.05)
--- NOTE | 2018-07-07 17:43 | CT ---
EXAM DATE: 07/07/2018 5:37 PM EST AGE/SEX: 78 years / Female INDICATIONS: Altered Mental Status CLINICAL DATA: This is the patient's initial encounter. Patient reports that signs and symptoms have been present for 3 days and indicates a pain score of Nonresponsive. MEDICAL/SURGICAL HISTORY: Dementia. Osteoarthritis. Diabetes. Hypertension Cholecystectomy. Cor onary artery bypass graft RADIATION DOSE: 49.05 CTDI (mGy) [place] [facility] [place] [facility] [place]/03/2016. . TECHNIQUE: CT of the head without contrast. Using automated exposure control and adjustment of the mA and/or kV according to patient size, radiation dose was kept as low as reasonably achievable to ob tain optimal diagnostic quality images. DICOM format image data is available electronically for revi ew and comparison. FINDINGS: Cerebrum: Diffuse cerebral atrophy is noted. Moderate periventricular and subcortical white matter s mall vessel ischemic changes are noted bilaterally. There is no acute infarct, acute hemorrhage, midl ine shift or extra-axial fluid collections. Posterior Fossa: The cerebellum and brainstem are intact. The 4th ventricle is midline. The cerebe llopontine angle is unremarkable. Extracranial: The visualized portion of the orbits is intact. Skull: The calvaria is intact. No evidence of skull fracture. CONCLUSION: 1. Diffuse cerebral atrophy. 2. Moderate periventricular and subcortical white matter small vessel ischemic changes bilaterally. 3. No acute infarct, acute hemorrhage, midline shift or extra-axial fluid collections. . Electronically signed by: Abner Be MD 07/07/2018 5:41 PM EST
[2018-07-07 17:45] LABS: Glucose,Random 511 mg/dL (74-106)
[2018-07-07] MEDS ORDERED: Sodium Chlor 0.9% Inj 500 ML IV.SIG SCH ×2 (18:00)
[2018-07-07 18:16] LABS: Bacteria,Urine Many /hpf; Bilirubin,Urine Negative (Negative); Clarity,Urine Turbid (Clear); Color,Urine Amber (Yellw/Straw); Glucose,Urine (UA) 50 mg/dL (Negative); Leukocyte Esterase,Urine Moderate (Negative); Nitrite,Urine Negative (Negative); Specific Gravity,Urine 1.018 (1.002-1.035); Squamous Epithelial Cell,Urine 19 /hpf (0-5); Urobilinogen,Urine 4 or Greater mg/dL (Less than 2)
[2018-07-07] MEDS ORDERED: Aspirin 325 MG Tablet PO ONE (18:46)
[2018-07-07] MEDS ORDERED: Aspirin 300 MG Supp RECTAL ONE (18:49)
[2018-07-07] MEDS ORDERED: Sod Chloride 0.9% Inj 1,000 ML IV.SIG SCH (19:00)
[2018-07-07] MEDS ORDERED: Insulin Human-R 100 UNIT/100ML 100 UNIT/100 ML BAG IV.CONT ONE (19:03)
[2018-07-07] MEDS ORDERED: Dextrose 50% in Water 50 ML Vial IV.PUSH PRN ×2 (19:03→19:47)
--- NOTE | 2018-07-07 19:40 | CT ---
EXAM DATE: 07/07/2018 7:32 PM EST AGE/SEX: 78 years / Female INDICATIONS: Patient not eating or drinking; failure to thrive. CLINICAL DATA: This is the patient's initial encounter. Patient reports that signs and symptoms have been present for 3 days and indicates a pain score of Nonresponsive. MEDICAL/SURGICAL HISTORY: Diabetes. Dementia. Hypertension. Cholecystectomy. CABG. Carotid endarterectomy. RADIATION DOSE: 12.02 CTDI (mGy) COMPARISON: [facility] [place], [place] PELVIS W/O CONTRAST, 01/04/2015. . TECHNIQUE: Multiple contiguous axial images were obtained through the abdomen. Images were obtained using multiple row detector helical technique. Using automated exposure control and adjustment of the mA and/or kV according to patient size, radiation dose was kept as low as reasonably achievable to o btain optimal diagnostic quality images. DICOM format image data is available electronically for rev iew and comparison. FINDINGS: LOWER LUNGS: The visualized lower lungs are clear. LIVER: Diffusely homogeneous density without intrahepatic ductal dilatation or volume loss. SPLEEN: Homogeneous density without enlargement. PANCREAS: Ill-defined soft tissue fullness/stranding in the region of the pancreatic head extending cephalad to the periportal region. Remainder of the pancreas appears grossly unremarkable without sig nificant pancreatic ductal dilatation. KIDNEYS: Kidneys are symmetrical in size without evidence for radiopaque renal calculi or hydronephr osis. No significant contour deforming renal abnormality. ADRENAL GLANDS: Indeterminate density 1.3 cm left adrenal mass. AORTA: Heavily calcified distal abdominal aorta and proximal common iliac arteries. BOWEL/MESENTERY: Mild colonic diverticulosis without significant inflammatory change to suggest dive rticulitis. No dilated loops of bowel. No free fluid or drainable fluid collections. ABDOMINAL WALL: Intact. BLADDER: Decompressed. REPRODUCTIVE: Calcified uterine mass likely reflecting calcified uterine leiomyoma. BONY STRUCTURES: Mild to moderate superior endplate compression fracture of L2 vertebral body. Advan afia degenerative changes in the lower lumbar spine. CONCLUSION: 1. Ill-defined stranding/soft tissue fullness in the region of the pancreatic head extending cephala d to the periportal region. This is incompletely evaluated due to lack of IV and oral contrast. Diffe rential considerations include pancreatitis in the appropriate clinical setting. Clinical correlation is recommended. 2. Mild to moderate superior endplate compression fracture of L2 vertebral body of unknown chronicit y given lack of appropriate prior exams. 3. Indeterminate density 1.3 cm left adrenal mass. This can be further characterized with adrenal ma ss protocol MRI or CT exam on an outpatient basis as clinically appropriate. 4. Additional ancillary findings, as above. Electronically signed by: Nam Hall MD 07/07/2018 7:38 PM EST
[2018-07-07] MEDS ORDERED: Bisacodyl 10 MG Supp RECTAL PRN (19:47)
[2018-07-07] MEDS ORDERED: Morphine Sulfate Inj 2 MG/ML Vial IV.PUSH PRN (19:48)
--- NOTE | 2018-07-07 19:49 | P.HPIM ---
History of Present Illness Primary Care Physician: UNKNOWN History of Present Illness: This is an 78-year-old DNR female with a PMH of HTN, Dementia, DM and A. fib who was sent to the ER from [facility] for AMS. Pt unable to provide any history at this time. Per report, pt has been deteriorating over the last several days, refusing to eat/drink and was scheduled to go to Hospice tomorrow. POA was contacted and confirmed DNR/Hospice, [facility] evaluated pt in the ER, plans for pt to go to Hospice tomorrow after POA arrives to sign paperwork. Pt is comfort measures only, but ok for IV Abx and IVF. BP 187/90, HR 101, O2 sat 97% on RA. CBC unremarkable. Na 152. Creatinine 3.99, previously 1.23 on 05/28/2018. Troponin 0 0.14. BS 511. Lactic Acid 4.2. UA positive for UTI. Exar with no acute findings. CT Head diffuse cerebral atrophy, no acute infarct or hemorrhage. CT Abdomen/Pelvis ill -defined stranding in pancreatic head possibly pancreatitis, 1.3 cm left adrenal mass. S/p IVF, Rocephin in ER. While in ER, pt w/ episode of A-fib w/ RVR, s/p Cardizem IV, now resolved. - Diagnosis (1) Encephalopathy (2) UTI (urinary tract infection) (3) PRISCILA (acute kidney injury) (4) DNR (do not resuscitate) (5) Hospice care Review of Systems PAST FAMILY HISTORY: Unknown unobtainable due to mental status PMF - History History Provided By: Deli Department Manager / EMT - Medical History Medical History: Medical History (Last Reviewed 07/07/18 @ 16:49 by Yadira Fischer RN) Coronary artery disease Dementia Diabetes Hyperlipidemia Hypertension Osteoarthritis - Surgical History Surgical History: Surgical History (Last Reviewed 07/07/18 @ 16:49 by Yadira Fischer RN) History of bilateral carotid endarterectomy History of cataract surgery History of cholecystectomy History of coronary artery bypass graft - Family History Family History: Family History (Last Reviewed 05/20/18 @ 09:00 by Matt Grijalva) Other Family history unknown - Tobacco History Second Hand Smoke Exposure: No Smoking Status: Cognitive impairment Tobacco Type: Cigarettes - Alcohol History How Often Do You Have a Drink Containing Alcohol: Unable to Obtain - Substance Use History Substance History: Unable to Obtain - Travel History Recent Travel in the [place] Within the Last 8 Weeks: No Recent Travel Out of the Country Within the Last 8 Weeks: No - Immunization History Tetanus Immunization: Unable to Assess Medications and Allergies Active Medications: Active Medications Dextrose (D50w Vial) 50 ml IV.PUSH UNSCH PRN PRN Reason: PER HYPOGLYCEMIA PROTOCOL Sodium Chloride (Ns Inj) 1,000 mls @ 1,000 mls/hr IV.SIG BOLUS JAMES Stop: 07/07/18 19:59 Last Admin: 07/07/18 18:57 Dose: 1,000 mls/hr Sodium Chloride (Ns Flush) 2 ml IV.FLUSH PRN PRN PRN Reason: FLUSH AFTER USING IV ACCESS Allergies Allergy/AdvReac Type Severity Reaction Status Date / Time pentazocine Allergy Severe CONFUSION,SLUURED Verified 07/07/18 16:54 WORDS Home Medications Medication Instructions Recorded Confirmed Type amlodipine [Norvasc] 10 mg PO DAILY 07/07/18 07/07/18 History donepezil [Aricept] 10 mg PO HS 07/07/18 07/07/18 History dronabinol 2.5 mg PO HS 07/07/18 07/07/18 History gabapentin 100 mg PO TID 07/07/18 07/07/18 History glipizide 2.5 mg PO BID 07/07/18 07/07/18 History hydralazine 25 mg PO TID 07/07/18 07/07/18 History insulin aspart U-100 [Novolog 1 sliding scale dose SUBCUT ACHS 07/07/18 History U-100 Insulin aspart] quetiapine [Seroquel] 25 mg PO TID 07/07/18 07/07/18 History sennosides [Senna Laxative] 8.6 mg PO BID 07/07/18 07/07/18 History Exam Vital signs: Vital Signs 07/07/18 16:46 07/07/18 16:50 07/07/18 17:50 Pulse Rate 110 H 110 H 101 H Respiratory Rate 14 18 Blood Pressure 152/85 H 187/90 H Pulse Oximetry 97 97 97 07/07/18 18:34 07/07/18 19:09 Pulse Rate 90 99 H Respiratory Rate 12 19 Blood Pressure 230/104 H 119/61 Pulse Oximetry 98 95 Intake & Output 07/07/18 07/07/18 07/08/18 06:59 18:59 06:59 Intake Total 1100 / 1100 Balance 1100 / 1100 Weight 83.915 kg Intake: IV 1100 / 1100 NS Inj 500 ML @ 1000 mls/hr IV. 1000 / 1000 SIG BOLUS JAMES Rx#:[id number] Rocephin Inj 1,000 MG In NS Inj 100 / 100 100 ML @ 200 mls/hr IV.SIG ONCE ONE Rx#:[id number] Narrative: PE: GENERAL: Elderly black female in no acute distress, confused, nonverbal. SKIN: Focused skin assessment warm and dry. HEENT: PERRLA, EOMI. No scleral icterus or conjunctival pallor. No lid lag or facial droop. CARDIOVASCULAR: Regular rate and rhythm. No obvious murmurs to auscultation. No chest tenderness to palpation. RESPIRATORY: No obvious rhonchi or wheezing. Clear to auscultation. Breath sounds equal bilaterally. GASTROINTESTINAL: Abdomen soft, non-tender, nondistended. BS normal. MUSCULOSKELETAL: Extremities without clubbing, cyanosis, or edema. No obvious deformities. NEUROLOGICAL: Awake, appears confused, not answering questions. No focal neurologic deficits. Moving both upper and lower extremities spontaneously. PSYCHIATRIC: Appropriate mood and affect. Insight and judgment normal. Results - Labs CBC & Chem 7: 07/07/18 16:58 07/07/18 16:58 Labs: Short CBC 07/07/18 Range/Units 16:58 WBC 9.8 (4.0-11.0) th/mm3 Hgb 14.8 (11.6-15.3) gm/dL Hct 45.8 (35.0-46.0) % Plt Count 187 (150-450) th/mm3 BMP 07/07/18 16:58 Sodium 152 H Potassium 4.6 Chloride 114 H Carbon Dioxide 26.0 BUN 108 H Creatinine 3.99 H Calcium 10.1 Cardiac Enzymes 07/07/18 Range/Units 16:58 Troponin I 0.14 H (0.02-0.05) ng/mL Liver Function 07/07/18 Range/Units 16:58 Total Bilirubin 1.6 H (0.2-1.0) mg/dL AST 96 H (15-37) U/L ALT 125 H (10-53) U/L Alkaline Phosphatase 118 H (45-117) U/L Albumin 3.8 (3.4-5.0) g/dL Urine 07/07/18 Range/Units 17:45 Urine Color Yadira (Yellw/Straw) Urine Clarity Turbid H (Clear) Urine pH 5.0 (5.0-8.5) Ur Specific [place] 1.018 (1.002-1.035) Urine Protein 100 H (Neg-Trace) mg/dL Urine Glucose (UA) 50 (Negative) mg/dL - Imaging Impressions Chest X-Ray 07/07/18 16:49 CONCLUSION: No acute cardiopulmonary disease. Head CT 07/07/18 16:49 CONCLUSION: 1. Diffuse cerebral atrophy. 2. Moderate periventricular and subcortical white matter small vessel ischemic changes bilaterally. 3. No acute infarct, acute hemorrhage, midline shift or extra-axial fluid collections. . Abdomen/Pelvis CT 07/07/18 19:05 CONCLUSION: 1. Ill-defined stranding/soft tissue fullness in the region of the pancreatic head extending cephalad to the periportal region. This is incompletely evaluated due to lack of IV and oral contrast. Differential considerations include pancreatitis in the appropriate clinical setting. Clinical correlation is recommended. 2. Mild to moderate superior endplate compression fracture of L2 vertebral body of unknown chronicity given lack of appropriate prior exams. 3. Indeterminate density 1.3 cm left adrenal mass. This can be further characterized with adrenal mass protocol MRI or CT exam on an outpatient basis as clinically appropriate. 4. Additional ancillary findings, as above. Caprini VTE Risk Assessment Caprini VTE Risk Assessment: No/Low Risk (score <= 1) Caprini Risk Assessment Model: Point Value = 1 Point Value = 2 Point Value = 3 Point Value = 5 Age 41-60 Minor surgery BMI > 25 kg/m2 Swollen legs Varicose veins or History of unexplained or recurrent spontaneous Oral contraceptives or hormone replacement Sepsis (< 1 month) Serious lung disease, including pneumonia (< 1 month) Abnormal pulmonary function Acute myocardial infarction Congestive heart failure (< 1 month) History of inflammatory bowel disease Medical patient at bed rest Age 61-74 Arthroscopic surgery Major open surgery (> 45 min) Laparoscopic surgery (> 45 min) Malignancy Confined to bed (> 72 hours) Immobilizing plaster cast Central venous access Age >= 75 History of VTE Family history of VTE Factor V Leiden Prothrombin [id number] Lupus anticoagulant Anticardiolipin antibodies Elevated serum homocysteine Heparin-induced thrombocytopenia Other congenital or acquired thrombophilia Stroke (< 1 month) Elective arthroplasty Hip, pelvis, or leg fracture Acute spinal cord injury (< 1 month) Prophylaxis Regimen: Total Risk Factor Score Risk Level Prophylaxis Regimen 0-1 Low Early ambulation 2 Moderate Order ONE of the following: *Sequential Compression Device (SCD) *Heparin 5000 units SQ BID 3-4 Higher Order ONE of the following medications: *Heparin 5000 units SQ TID *Enoxaparin/Lovenox 40 mg SQ daily (WT < 150 kg, CrCl > 30 mL/min) *Enoxaparin/Lovenox 30 mg SQ daily (WT < 150 kg, CrCl > 10-29 mL/min) *Enoxaparin/Lovenox 30 mg SQ BID (WT < 150 kg, CrCl > 30 mL/min) AND/OR *Sequential Compression Device (SCD) 5 or more Highest Order ONE of the following medications: *Heparin 5000 units SQ TID (Preferred with Epidurals) *Enoxaparin/Lovenox 40 mg SQ daily (WT < 150 kg, CrCl > 30 mL/min) *Enoxaparin/Lovenox 30 mg SQ daily (WT < 150 kg, CrCl > 10-29 mL/min) *Enoxaparin/Lovenox 30 mg SQ BID (WT < 150 kg, CrCl > 30 mL/min) AND *Sequential Compression Device (SCD) Assessment and Plan - Assessment (1) Encephalopathy Code(s): G93.40 - Encephalopathy, unspecified Status: Acute (2) UTI (urinary tract infection) Code(s): N39.0 - Urinary tract infection, site not specified Status: Acute (3) PRISCILA (acute kidney injury) Code(s): N17.9 - Acute kidney failure, unspecified Status: Acute (4) DNR (do not resuscitate) Code(s): Z66 - Do not resuscitate Status: Acute (5) Hospice care Code(s): Z51.5 - Encounter for palliative care Status: Acute - Plan A/P: 1. Encephalopathy: progressive deterioration per report from [facility], likely secondary to advanced dementia, failure to thrive and acute UTI. CT Head w/ no acute findings. 2. PRISCILA: Creatinine 3.99, previously 1.23 on 05/28/18, IVF for hydration, repeat labs in am. 3. UTI: U/a w/ UTI, s/p Rocephin in ER, will continue w/ IV Abx, follow up cultures 4. Hospice: Pt is to be transported to Hospice tomorrow, POA contacted, [facility] has evaluated pt in ER, plan is for transfer tomorrow after POA arrives to sign paperwork. Comfort measures, but ok for IV Abx and IVF. Will not pursue elevated trop or lactic acidosis. 5. DNR: Confirmed. Code Status updated. 6. DVT Prophylaxis: No prophylaxis as pt DNR/Hospice and Comfort Measures 7. Social work for d/c planning as needed 8. Case discussed w/ ER physician at length, labs/records/imaging reviewed by me.
[2018-07-07] MEDS: Sod Chloride 0.9% Inj 1,000 ML IV.CONT SCH (20:41)
[2018-07-08] MEDS: Senna/Docusate Sodium 8.6/50 MG Tablet PO SCH ×3 (00:56→21:31)
[2018-07-08] MEDS: Insulin NovoLOG Aspart Correctional Sugar Inj SQ SCH ×5 (01:01→21:31)
[2018-07-08] MEDS: Sod Chloride 0.9% Inj 1,000 ML IV.CONT SCH ×2 (06:20→15:28)
--- NOTE | 2018-07-08 14:57 | P.PN ---
Subjective Interval history: Patient is seen lying in bed. She does not answer my questions. Nursing reports no adverse events. Physical Exam Vital signs: Vital Signs 07/07/18 16:46 07/07/18 16:50 07/07/18 17:50 Temperature Pulse Rate 110 H 110 H 101 H Respiratory Rate 14 18 Blood Pressure 152/85 H 187/90 H Pulse Oximetry 97 97 97 07/07/18 18:34 07/07/18 19:09 07/07/18 21:51 Temperature Pulse Rate 90 99 H 106 H Respiratory Rate 12 19 19 Blood Pressure 230/104 H 119/61 146/65 H Pulse Oximetry 98 95 95 07/07/18 23:44 07/08/18 00:00 07/08/18 04:00 Temperature 97.5 F L 97.7 F 97.7 F Pulse Rate 94 H 96 H 94 H Respiratory Rate 15 16 16 Blood Pressure 139/82 163/93 H 149/78 H Pulse Oximetry 95 95 07/08/18 08:35 07/08/18 10:00 07/08/18 12:00 Temperature 97.6 F Pulse Rate 89 91 H Respiratory Rate 16 Blood Pressure 150/77 H Pulse Oximetry 95 97 Intake & Output 07/07/18 07/08/18 07/08/18 18:59 06:59 18:59 Intake Total 1100 / 1100 1650 / 1650 Balance 1100 / 1100 1650 / 1650 Weight 83.915 kg 83.9 kg Intake: IV 1100 / 1100 1650 / 1650 NS Inj 1,000 ML @ 100 mls/hr IV 650 / 650 .CONT .Q10H JAMES Rx#:[id number] NS Inj 1,000 ML @ 1000 mls/hr 1000 / 1000 IV.SIG BOLUS JAMES Rx#:[id number] NS Inj 500 ML @ 1000 mls/hr IV. 1000 / 1000 SIG BOLUS JAMES Rx#:[id number] Rocephin Inj 1,000 MG In NS Inj 100 / 100 100 ML @ 200 mls/hr IV.SIG ONCE ONE Rx#:[id number] Other: Weight On Admission 83.915 kg Narrative: GENERAL: Elderly black female in no acute distress, confused with dementia; limited response SKIN: Focused skin assessment warm and dry. CARDIOVASCULAR: Regular rate and rhythm. RESPIRATORY: No obvious rhonchi or wheezing. Clear to auscultation. Breath sounds equal bilaterally. GASTROINTESTINAL: Abdomen soft, non-tender, nondistended. BS normal. MUSCULOSKELETAL: Extremities without clubbing, cyanosis, or edema. No obvious deformities. NEUROLOGICAL: Drowsy, not answering questions. No focal neurologic deficits. Moving both upper and lower extremities spontaneously. - Urinary Catheter Management Straight Cath placed during this visit: yes, but has since been removed by the nurse Reason for continuing: Not indwelling catheter Insertion date: 07/07/18 Insertion time: 17:48 Removal date: 07/07/18 Removal time: 17:48 Results - Labs CBC & Chem 7: 07/07/18 16:58 07/07/18 16:58 Laboratory Results - last 24 hr 07/07/18 07/07/18 07/07/18 16:43 16:50 16:58 WBC 9.8 RBC 4.67 Hgb 14.8 Hct 45.8 MCV 98.2 MCH 31.8 MCHC 32.4 RDW 14.8 Plt Count 187 MPV 10.6 Neut % (Auto) 88.8 H Lymph % (Auto) 6.6 L Ward % (Auto) 4.1 Eos % (Auto) 0.2 Baso % (Auto) 0.3 Neut # (Auto) 8.7 H Lymph # (Auto) 0.6 L Ward # (Auto) 0.4 Eos # (Auto) 0.0 Baso # (Auto) 0.0 WBC Differential . Differential Comment Auto diff final Sodium Potassium Chloride Carbon Dioxide Anion Gap BUN Creatinine Estimated GFR POC Glucose 454 H* Random Glucose Lactic Acid 4.2 H* Calcium Magnesium Total Bilirubin AST ALT Alkaline Phosphatase Troponin I Total Protein Albumin Urine Color Urine Clarity Urine pH Ur Specific [place] Urine Protein Urine Glucose (UA) Urine Ketones Urine Occult Blood Urine Nitrate Urine Bilirubin Urine Urobilinogen Ur Leukocyte Esterase Urine RBC Urine WBC Ur Squamous Epith Cells Urine Bacteria Micro UA Comment Ur Microscopic Review Urine Culture Comments 07/07/18 07/07/18 07/07/18 16:58 17:45 19:38 WBC RBC Hgb Hct MCV MCH MCHC RDW Plt Count MPV Neut % (Auto) Lymph % (Auto) Ward % (Auto) Eos % (Auto) Baso % (Auto) Neut # (Auto) Lymph # (Auto) Ward # (Auto) Eos # (Auto) Baso # (Auto) WBC Differential Differential Comment Sodium 152 H Potassium 4.6 Chloride 114 H Carbon Dioxide 26.0 Anion Gap 12 BUN 108 H Creatinine 3.99 H Estimated GFR 13 L POC Glucose 419 H Random Glucose 511 H* Lactic Acid Calcium 10.1 Magnesium 3.1 H Total Bilirubin 1.6 H AST 96 H ALT 125 H Alkaline Phosphatase 118 H Troponin I 0.14 H Total Protein 9.1 H Albumin 3.8 Urine Color Yadira Urine Clarity Turbid H Urine pH 5.0 Ur Specific [place] 1.018 Urine Protein 100 H Urine Glucose (UA) 50 Urine Ketones Negative Urine Occult Blood Small H Urine Nitrate Negative Urine Bilirubin Negative Urine Urobilinogen 4 or greater Ur Leukocyte Esterase Moderate H Urine RBC 15 H Urine WBC Ur Squamous Epith Cells 19 Urine Bacteria Many H Micro UA Comment Cath-culture ind Ur Microscopic Review Not Reportable Urine Culture Comments Cath-cult indicated 07/07/18 07/07/18 07/08/18 19:40 21:07 00:59 WBC RBC Hgb Hct MCV MCH MCHC RDW Plt Count MPV Neut % (Auto) Lymph % (Auto) Ward % (Auto) Eos % (Auto) Baso % (Auto) Neut # (Auto) Lymph # (Auto) Ward # (Auto) Eos # (Auto) Baso # (Auto) WBC Differential Differential Comment Sodium Potassium Chloride Carbon Dioxide Anion Gap BUN Creatinine Estimated GFR POC Glucose 393 H 200 H Random Glucose Lactic Acid 4.0 H Calcium Magnesium Total Bilirubin AST ALT Alkaline Phosphatase Troponin I Total Protein Albumin Urine Color Urine Clarity Urine pH Ur Specific [place] Urine Protein Urine Glucose (UA) Urine Ketones Urine Occult Blood Urine Nitrate Urine Bilirubin Urine Urobilinogen Ur Leukocyte Esterase Urine RBC Urine WBC Ur Squamous Epith Cells Urine Bacteria Micro UA Comment Ur Microscopic Review Urine Culture Comments 07/08/18 07/08/18 08:37 13:03 WBC RBC Hgb Hct MCV MCH MCHC RDW Plt Count MPV Neut % (Auto) Lymph % (Auto) Ward % (Auto) Eos % (Auto) Baso % (Auto) Neut # (Auto) Lymph # (Auto) Ward # (Auto) Eos # (Auto) Baso # (Auto) WBC Differential Differential Comment Sodium Potassium Chloride Carbon Dioxide Anion Gap BUN Creatinine Estimated GFR POC Glucose 233 H 232 H Random Glucose Lactic Acid Calcium Magnesium Total Bilirubin AST ALT Alkaline Phosphatase Troponin I Total Protein Albumin Urine Color Urine Clarity Urine pH Ur Specific [place] Urine Protein Urine Glucose (UA) Urine Ketones Urine Occult Blood Urine Nitrate Urine Bilirubin Urine Urobilinogen Ur Leukocyte Esterase Urine RBC Urine WBC Ur Squamous Epith Cells Urine Bacteria Micro UA Comment Ur Microscopic Review Urine Culture Comments - Imaging Impressions Chest X-Ray 07/07/18 16:49 CONCLUSION: No acute cardiopulmonary disease. Head CT 07/07/18 16:49 CONCLUSION: 1. Diffuse cerebral atrophy. 2. Moderate periventricular and subcortical white matter small vessel ischemic changes bilaterally. 3. No acute infarct, acute hemorrhage, midline shift or extra-axial fluid collections. . Abdomen/Pelvis CT 07/07/18 19:05 CONCLUSION: 1. Ill-defined stranding/soft tissue fullness in the region of the pancreatic head extending cephalad to the periportal region. This is incompletely evaluated due to lack of IV and oral contrast. Differential considerations include pancreatitis in the appropriate clinical setting. Clinical correlation is recommended. 2. Mild to moderate superior endplate compression fracture of L2 vertebral body of unknown chronicity given lack of appropriate prior exams. 3. Indeterminate density 1.3 cm left adrenal mass. This can be further characterized with adrenal mass protocol MRI or CT exam on an outpatient basis as clinically appropriate. 4. Additional ancillary findings, as above. Assessment and Plan - Assessment (1) Encephalopathy Code(s): G93.40 - Encephalopathy, unspecified Status: Acute (2) UTI (urinary tract infection) Code(s): N39.0 - Urinary tract infection, site not specified Status: Acute (3) PRISCILA (acute kidney injury) Code(s): N17.9 - Acute kidney failure, unspecified Status: Acute (4) DNR (do not resuscitate) Code(s): Z66 - Do not resuscitate Status: Acute - Plan This is an 78-year-old DNR female with a PMH of HTN, Dementia, DM and A. fib who was sent to the ER from [facility] for AMS. A/P: 1. Encephalopathy: progressive deterioration per report from [facility], likely secondary to advanced dementia, failure to thrive and acute UTI. CT Head w/ no acute findings. 2. PRISCILA: Creatinine 3.99, previously 1.23 on 05/28/18, - IVF for hydration 3. UTI: -s/p Rocephin in ER, will continue w/ IV Abx, follow up cultures 4. Hospice: -Patient evaluated by hospice and not found to be appropriate for care center. -Family wishes for comfort measures only DNR: Confirmed. Code Status updated. DVT Prophylaxis: No prophylaxis as pt DNR/Hospice and Comfort Measures Discharge planning: Will likely return to [facility] (2) UTI (urinary tract infection) Qualifiers: Urinary tract infection type: acute cystitis Hematuria presence: with hematuria Qualified Code(s): N30.01 - Acute cystitis with hematuria
--- NOTE | 2018-07-08 17:37 | P.CONPAL ---
Consult Service: Palliative Care Requesting Physician: Sabina Stewart Reason for Consult: a. To assist with evaluation and management of symptoms including: Confusion, anorexia b. To assist medical decision maker(s) with: better understanding of current medical conditions; weighing benefits/burdens of medical treatment options; making medical treatment decisions. Primary Care Provider: UNKNOWN History of Present Illness History of Present Illness: This is an 78-year-old -[place] female who was brought to the emergency room via [facility] after she was found to have altered mental status at [facility] where she had been undergoing rehabilitation. The staff was unable to specify when she was last seen at her baseline of awake and talking. [facility] found her awake but unable to follow commands or answer questions. Staff reports that she had begun refusing all medications, food and drink several days ago with plans to transfer to hospice. In the ED she was noted to return to voice and groan in response to painful stimuli. A DO NOT RESUSCITATE order was found in her paperwork from the facility. Patient was unable to provide any history. Diagnostic data on admission: * WBC 9.8, Hgb 14.8, HCT 45.8, PLT 187, lactic acid 4.2, sodium 152, potassium 4.6, BUN 108, creatinine 3.99, random glucose 511, calcium 10.1, magnesium 3.1, total bilirubin 1.6, AST 96, ALT 125, alk phos 118, troponin 0 0.14, total protein 9.1, albumin 3.8. * Urinalysis showed a turbid saritha specimen with a pH of 5.0, specific gravity 1.018, urine protein 100, glucose 50, ketones negative, occult blood small, negative nitrate, urobilinogen 4 or greater moderate leukocyte esterase, many bacteria, culture indicated. * Chest x-ray showed no acute cardiopulmonary disease. * Head CT showed diffuse cerebral atrophy with moderate periventricular and subcortical white matter, with small vessel ischemic changes bilaterally. No acute infarct, hemorrhage, midline shift or extra-axial fluid collections. * CT of the abdomen and pelvis showed ill-defined stranding/soft tissue fullness in the region of the pancreatic head extending cephalad to the periportal region. This is incompletely evaluated due to the lack of IV and oral contrast. Differential considerations include pancreatitis in the appropriate clinical setting. Mild to moderate superior endplate compression fracture of L2 vertebral body of unknown chronicity. Indeterminate density 1.3 cm left adrenal mass. * Electrocardiogram showed sinus tachycardia with occasional supraventricular premature complexes, left anterior fascicular block, septal myocardial infarction. While in the ER she developed atrial fibrillation with rapid ventricular response and received a dose of Cardizem. While reportedly alert earlier today , at my evaluation she is lethargic, not arousing to voice. She opens her eyes to tactile stimuli but does not speak or interact. She is slumped over in bed. Past medical history Coronary artery disease Dementia Diabetes Hyperlipidemia Hypertension Osteoarthritis Previous TIAs Osteoarthritis Surgical history Bilateral carotid endarterectomy Cataract surgery Cholecystectomy History of CABG Appendectomy ORIF right femur Social history No history of alcohol or tobacco abuse. Family history She has no children, other family history is unobtainable due to patient's altered mental status. . Function/Cognitive Trajectory: She has [facility], [facility] and had been transferred to [facility] for continued rehabilitation prior to admission. She had previously been able to get up to a wheelchair with 2 person max assist but is now essentially bedbound. Her has Parkinson and is unable to provide adequate care for her. . Review of Systems Patient is nonverbal and unable to provide their own ROS. A 12 part ROS taken as best as possible from medical record and available family. Constitutional: Reports anorexia Neurologic: Reports confusion PMFSH - History History Provided By: Counter Manager / EMT - Medical History Medical History: Medical History (Last Reviewed 07/07/18 @ 21:02 by SIERRA Harmon) Coronary artery disease Dementia Diabetes Hyperlipidemia Hypertension Osteoarthritis - Surgical History Surgical History: Surgical History (Last Reviewed 07/07/18 @ 21:02 by SIERRA Harmon) History of bilateral carotid endarterectomy History of cataract surgery History of cholecystectomy History of coronary artery bypass graft - Family History Family History: Family History (Last Reviewed 07/07/18 @ 21:02 by SIERRA Harmon) Other Family history unknown - Tobacco History Second Hand Smoke Exposure: No Smoking Status: Unknown if ever smoked Tobacco Type: Cigarettes - Alcohol History How Often Do You Have a Drink Containing Alcohol: Unable to Obtain - Substance Use History Substance History: Unable to Obtain - Travel History Recent Travel in the [place] Within the Last 8 Weeks: No Recent Travel Out of the Country Within the Last 8 Weeks: No - Immunization History Tetanus Immunization: Unable to Assess Medications and Allergies Active Medications: Active Medications Al Hydroxide/Mg Hydroxide (Milk Of Owen Liq) 30 ml PO Q12H PRN PRN Reason: Mild Constipation Bisacodyl (Dulcolax Supp) 10 mg RECTAL DAILY PRN PRN Reason: SEVERE CONSITIPATION Dextrose (D50w Vial) 50 ml IV.PUSH UNSCH PRN PRN Reason: PER HYPOGLYCEMIA PROTOCOL Dextrose (D50w Vial) 50 ml IV.PUSH UNSCH PRN PRN Reason: PER HYPOGLYCEMIA PROTOCOL Glucagon (Glucagon Inj) 1 mg OTHER PRN PRN PRN Reason: for Hypoglycemia Protocol Ceftriaxone Sodium 1,000 mg/ (Sodium Chloride) 100 mls @ 200 mls/hr IV.SIG Q24H [facility] Sodium Chloride (Ns Inj) 1,000 mls @ 100 mls/hr IV.CONT .Q10H [facility] Last Admin: 07/08/18 15:28 Dose: Not Given Insulin Aspart (Novolog Insulin Correctional Sugar Inj) 0 unit SQ ACHS [facility]; Protocol Last Admin: 07/08/18 13:47 Dose: 3 unit Lactulose (Lactulose Liq) 30 ml PO DAILY PRN PRN Reason: SEVERE CONSITIPATION Lorazepam (Ativan Inj) 1 mg IV.PUSH Q2H PRN PRN Reason: AGITATION Morphine Sulfate (Morphine Inj) 2 mg IV.PUSH Q4H PRN PRN Reason: PAIN 6-10 Ondansetron HCl (Zofran Inj) 4 mg IV.PUSH Q6H PRN PRN Reason: NAUSEA OR VOMITING Senna/Docusate Sodium (Lay-Colace) 1 tab PO BID [facility] Last Admin: 07/08/18 08:31 Dose: 1 tab Sennosides (Senokot) 17.2 mg PO Q12H PRN PRN Reason: Moderate Constipation Sodium Chloride (Ns Flush) 2 ml IV.FLUSH PRN PRN PRN Reason: FLUSH AFTER USING IV ACCESS Sodium Chloride (Ns Flush) 2 ml IV.FLUSH PRN PRN PRN Reason: FLUSH AFTER USING IV ACCESS Sodium Chloride (Ns Flush) 2 ml IV.FLUSH BID [facility] Last Admin: 07/08/18 10:04 Dose: Not Given Allergies Allergy/AdvReac Type Severity Reaction Status Date / Time pentazocine Allergy Severe CONFUSION,SLUURED Verified 07/07/18 16:54 WORDS Home Medications Medication Instructions Recorded Confirmed Type amlodipine [Norvasc] 10 mg PO DAILY 07/07/18 07/07/18 History donepezil [Aricept] 10 mg PO HS 07/07/18 07/07/18 History dronabinol 2.5 mg PO HS 07/07/18 07/07/18 History gabapentin 100 mg PO TID 07/07/18 07/07/18 History glipizide 2.5 mg PO BID 07/07/18 07/07/18 History hydralazine 25 mg PO TID 07/07/18 07/07/18 History insulin aspart U-100 [Novolog 1 sliding scale dose SUBCUT ACHS 07/07/18 History U-100 Insulin aspart] quetiapine [Seroquel] 25 mg PO TID 07/07/18 07/07/18 History sennosides [Senna Laxative] 8.6 mg PO BID 07/07/18 07/07/18 History Advance Directives Living Will: No Healthcare Surrogate: Yes Health Care Surrogate Name and Number: Cat Pascual Physical Exam Vital Signs: Vital Signs - 24 hr 07/07/18 17:50 07/07/18 18:34 07/07/18 19:09 Temperature Pulse Rate 101 H 90 99 H Respiratory Rate 18 12 19 Blood Pressure 187/90 H 230/104 H 119/61 Pulse Oximetry 97 98 95 07/07/18 21:51 07/07/18 23:44 07/08/18 00:00 Temperature 97.5 F L 97.7 F Pulse Rate 106 H 94 H 96 H Respiratory Rate 19 15 16 Blood Pressure 146/65 H 139/82 163/93 H Pulse Oximetry 95 95 07/08/18 04:00 07/08/18 08:35 07/08/18 10:00 Temperature 97.7 F Pulse Rate 94 H 89 Respiratory Rate 16 Blood Pressure 149/78 H Pulse Oximetry 95 95 07/08/18 12:00 07/08/18 16:00 Temperature 97.6 F Pulse Rate 91 H 97 H Respiratory Rate 16 16 Blood Pressure 150/77 H 150/79 H Pulse Oximetry 97 98 I&O: Intake & Output 07/06/18 07/07/18 07/08/18 07/09/18 06:59 06:59 06:59 06:59 Intake Total 2750 / 2750 Balance 2750 / 2750 Weight 184 lb 15.485 oz Physical Exam: CONSTITUTIONAL/GENERAL: This is an overweight patient, in no apparent distress. TUBES/LINES/DRAINS: PIV SKIN: No jaundice, rashes, or lesions. Ecchymoses on upper extremities. No wounds seen anteriorly. Skin temperature appropriate. Not diaphoretic. HEAD: Atraumatic. Normocephalic. EYES: Pupils equal and round and reactive.No scleral icterus. No injection or drainage. Fundi not examined. ENT: Unable to assess hearing. Nose without bleeding or purulent drainage. NECK: Trachea midline. Supple. No palpable thyroid enlargement or nodularity. CARDIOVASCULAR: Regular rate and rhythm without murmurs, gallops, or rubs. No JVD. Peripheral pulses symmetric. RESPIRATORY/CHEST: Symmetric, unlabored respirations. Clear to auscultation. Breath sounds equal bilaterally. No wheezes, rales, or rhonchi. GASTROINTESTINAL: Abdomen soft, non-tender, nondistended. No hepato-splenomegaly , or palpable masses. No guarding. Bowel sounds present. GENITOURINARY: Without palpable bladder distension. MUSCULOSKELETAL: Extremities without clubbing, cyanosis, or edema. No joint tenderness or effusion noted. No calf tenderness. No mottling or clubbing. LYMPHATICS: No palpable cervical or supraclavicular adenopathy. NEUROLOGICAL: Lethargic, opens eyes to touch but does not interact, falls back to sleep. PSYCHIATRIC: Lethargic. . Diagnostic Tests Laboratory: Laboratory Results - last 72 hr 07/07/18 07/07/18 07/07/18 16:43 16:50 16:58 WBC 9.8 RBC 4.67 Hgb 14.8 Hct 45.8 MCV 98.2 MCH 31.8 MCHC 32.4 RDW 14.8 Plt Count 187 MPV 10.6 Neut % (Auto) 88.8 H Lymph % (Auto) 6.6 L Smith % (Auto) 4.1 Eos % (Auto) 0.2 Baso % (Auto) 0.3 Neut # (Auto) 8.7 H Lymph # (Auto) 0.6 L Smith # (Auto) 0.4 Eos # (Auto) 0.0 Baso # (Auto) 0.0 WBC Differential . Differential Comment Auto diff final Sodium Potassium Chloride Carbon Dioxide Anion Gap BUN Creatinine Estimated GFR POC Glucose 454 H* Random Glucose Lactic Acid 4.2 H* Calcium Magnesium Total Bilirubin AST ALT Alkaline Phosphatase Troponin I Total Protein Albumin Urine Color Urine Clarity Urine pH Ur Specific [place] Urine Protein Urine Glucose (UA) Urine Ketones Urine Occult Blood Urine Nitrate Urine Bilirubin Urine Urobilinogen Ur Leukocyte Esterase Urine RBC Urine WBC Ur Squamous Epith Cells Urine Bacteria Micro UA Comment Ur Microscopic Review Urine Culture Comments 07/07/18 07/07/18 07/07/18 16:58 17:45 19:38 WBC RBC Hgb Hct MCV MCH MCHC RDW Plt Count MPV Neut % (Auto) Lymph % (Auto) Smith % (Auto) Eos % (Auto) Baso % (Auto) Neut # (Auto) Lymph # (Auto) Smith # (Auto) Eos # (Auto) Baso # (Auto) WBC Differential Differential Comment Sodium 152 H Potassium 4.6 Chloride 114 H Carbon Dioxide 26.0 Anion Gap 12 BUN 108 H Creatinine 3.99 H Estimated GFR 13 L POC Glucose 419 H Random Glucose 511 H* Lactic Acid Calcium 10.1 Magnesium 3.1 H Total Bilirubin 1.6 H AST 96 H ALT 125 H Alkaline Phosphatase 118 H Troponin I 0.14 H Total Protein 9.1 H Albumin 3.8 Urine Color Saritha Urine Clarity Turbid H Urine pH 5.0 Ur Specific [place] 1.018 Urine Protein 100 H Urine Glucose (UA) 50 Urine Ketones Negative Urine Occult Blood Small H Urine Nitrate Negative Urine Bilirubin Negative Urine Urobilinogen 4 or greater Ur Leukocyte Esterase Moderate H Urine RBC 15 H Urine WBC Ur Squamous Epith Cells 19 Urine Bacteria Many H Micro UA Comment Cath-culture ind Ur Microscopic Review Not Reportable Urine Culture Comments Cath-cult indicated 07/07/18 07/07/18 07/08/18 19:40 21:07 00:59 WBC RBC Hgb Hct MCV MCH MCHC RDW Plt Count MPV Neut % (Auto) Lymph % (Auto) Smith % (Auto) Eos % (Auto) Baso % (Auto) Neut # (Auto) Lymph # (Auto) Smith # (Auto) Eos # (Auto) Baso # (Auto) WBC Differential Differential Comment Sodium Potassium Chloride Carbon Dioxide Anion Gap BUN Creatinine Estimated GFR POC Glucose 393 H 200 H Random Glucose Lactic Acid 4.0 H Calcium Magnesium Total Bilirubin AST ALT Alkaline Phosphatase Troponin I Total Protein Albumin Urine Color Urine Clarity Urine pH Ur Specific [place] Urine Protein Urine Glucose (UA) Urine Ketones Urine Occult Blood Urine Nitrate Urine Bilirubin Urine Urobilinogen Ur Leukocyte Esterase Urine RBC Urine WBC Ur Squamous Epith Cells Urine Bacteria Micro UA Comment Ur Microscopic Review Urine Culture Comments 07/08/18 07/08/18 08:37 13:03 WBC RBC Hgb Hct MCV MCH MCHC RDW Plt Count MPV Neut % (Auto) Lymph % (Auto) Smith % (Auto) Eos % (Auto) Baso % (Auto) Neut # (Auto) Lymph # (Auto) Smith # (Auto) Eos # (Auto) Baso # (Auto) WBC Differential Differential Comment Sodium Potassium Chloride Carbon Dioxide Anion Gap BUN Creatinine Estimated GFR POC Glucose 233 H 232 H Random Glucose Lactic Acid Calcium Magnesium Total Bilirubin AST ALT Alkaline Phosphatase Troponin I Total Protein Albumin Urine Color Urine Clarity Urine pH Ur Specific [place] Urine Protein Urine Glucose (UA) Urine Ketones Urine Occult Blood Urine Nitrate Urine Bilirubin Urine Urobilinogen Ur Leukocyte Esterase Urine RBC Urine WBC Ur Squamous Epith Cells Urine Bacteria Micro UA Comment Ur Microscopic Review Urine Culture Comments Result Diagrams: 07/07/18 16:58 07/07/18 16:58 Microbiology: Microbiology 07/07/18 17:45 Urine Culture - Preliminary Catheterized Urine gram negative rods Imaging: Chest X-Ray 07/07/18 16:49 CONCLUSION: No acute cardiopulmonary disease. Head CT 07/07/18 16:49 CONCLUSION: 1. Diffuse cerebral atrophy. 2. Moderate periventricular and subcortical white matter small vessel ischemic changes bilaterally. 3. No acute infarct, acute hemorrhage, midline shift or extra-axial fluid collections. . Abdomen/Pelvis CT 07/07/18 19:05 CONCLUSION: 1. Ill-defined stranding/soft tissue fullness in the region of the pancreatic head extending cephalad to the periportal region. This is incompletely evaluated due to lack of IV and oral contrast. Differential considerations include pancreatitis in the appropriate clinical setting. Clinical correlation is recommended. 2. Mild to moderate superior endplate compression fracture of L2 vertebral body of unknown chronicity given lack of appropriate prior exams. 3. Indeterminate density 1.3 cm left adrenal mass. This can be further characterized with adrenal mass protocol MRI or CT exam on an outpatient basis as clinically appropriate. 4. Additional ancillary findings, as above. Patient/Family Conference Present at Family Conference: Spoke with her POA, Cat, via telephone and updated her as to patient's current clinical condition and explored patient history. Reviewed clinical course, interventions attempted, patient's current clinical status, past medical , social, family, psychosocial history. Reviewed palliative care purpose and focus as well as the below listed items. Discussed discharge plans for Ms. Robert. Her is unable to take care of her at home due to his debility from Parkinson's, admitting her to a fci facility would deprive the of her income which would seriously impair his ability to provide for his needs. Per Cat, they have minimal monthly income. We discussed hospice care center placement however she states that they would be unable to pay for even one day of routine stay. Arranged call for tomorrow after discussing possible options with the palliative care/hospice team. Provided palliative care contact information. All questions answered to the best of my ability. . Family Conference Location: Telephone Issues Discussed: * Palliative care role, purpose, approach * Additional medical, psychosocial, and spiritual history * Patients general health, functional status, and cognitive changes in the months leading up to the current hospitalization * Patient/family understanding of the current medical problems * Patient/family understanding of prognosis * Patients goals of care as best understood from advance directives and/or conversations and/or values * Current medical treatment options and benefits/burdens of those options * Likely scenarios comparing ongoing aggressive care with a transition to comfort measures only * Questions answered to the best of my ability * Palliative care contact information provided Assessment and Plan Pertinent Non-Medical Issues: Psychosocial: [place] was [place] has been to her for many decades. They have no children. 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 Spiritual: [employer] Returner available. Legal: Cat is her medical and financial power of energy attorney. Ethical issues impacting care: Discharge home would be questionable as the would be unable to care for her without additional help. . Important Contacts: POA: Cat Pascual : Danny Robert Unknown relationship: Barry Rossi . Prognosis: Her prognosis is guarded. She is having more frequent hospital admissions and has been at 3 separate rehab's in the last month with no significant progress. She is of advanced age with progressively worsening dementia and has stopped eating and drinking over the last week. On presentation she was dehydrated in acute renal compromise a blood sugar over 500 and a urinary tract infection. She is likely to have recurrent decline, complications and readmissions. She would be hospice appropriate if goals were consistent. . Code Status: No Code DNR Plan: PLAN: Legal decision maker: Patient is not capacitated for decision-making and it is unlikely that she will regain capacity. She has appointed her friend, Cat Pascual as her medical and financial POA. Goals: Comfort oriented. CODE STATUS: DO NOT RESUSCITATE. SYMPTOMS: * Encephalopathy: She remains with altered mental status, lethargic and not responding to verbal stimuli. She has a urinary tract infection with culture growing gram-negative rods. She has recently had an E. coli UTI 05/22/2018 and a Klebsiella pneumoniae UTI 05/15/2018. She is currently receiving Rocephin pending culture completion. * Anorexia: She has been refusing to eat and drink for over a week per the retirement, however per her POA, it has been close to a month that her oral intake has drifted down from 1 meal a day to now virtually nothing. This appears to be progressive dementia. Family is considering hospice. Palliative care will continue to follow the patient during hospital course as condition evolves, to assist patient/decision-maker with understanding of their medical conditions, weighing benefits/burdens of treatment options, for clarification of goals of treatment. Additionally will assist with any symptoms of palliative concern. . Appreciation Thank you for the opportunity to participate in the care of Becky Robert. Attestation Attestation: To help prompt me to consider important information that might be impacting today's encounter and assessment, information from prior notes written by myself or my colleagues may have been "brought forward" into today's note. My signature on this note, however, is an attestation that I personally performed the exam, history, and/or decision-making noted today, and, unless otherwise indicated, the interactions with patient, family, and staff as well as the review of records all occurred today. I also attest that the listed assessment and stated plan reflect my best clinical judgment today based on the combination of historical information, prior notes, and today's exam/ interactions. When time spent is documented, it refers only to time spent today by the signer, or if indicated, combined time spent today by collaborating physician/nurse practitioner. .
--- NOTE | 2018-07-08 20:08 | ECG ---
Date Performed: 07/07/2018 Time Performed: 17:13:42 PTAGE: 78 years EKG: SINUS TACHYCARDIA MARKED LEFT AXIS DEVIATION POSSIBLE RIGHT VENTRICULAR CONDUCTION DELAY LE FT VENTRICULAR HYPERTROPHY AND ST-T CHANGE POSSIBLE SEPTAL MYOCARDIAL INFARCTION ABNORMAL ECG PREVIOUS TRACING : 05/14/2018 22.11 Since the previous tracing, no significant change noted DOCTOR: Leyla Benjamin Interpretating Date/Time 07/08/2018 20:01:29
--- NOTE | 2018-07-08 20:08 | ECG ---
Date Performed: 07/07/2018 Time Performed: 18:53:59 PTAGE: 78 years EKG: SINUS TACHYCARDIA WITH OCCASIONAL SUPRAVENTRICULAR PREMATURE COMPLEXES LEFT ANTERIOR FASCIC ULAR BLOCK SEPTAL MYOCARDIAL INFARCTION ABNORMAL ECG PREVIOUS TRACING : 07/07/2018 17.13 Since the previous tracing, no significant change noted DOCTOR: Leyla Benjamin Interpretating Date/Time 07/08/2018 20:01:37
[2018-07-09] MEDS: Sod Chloride 0.9% Inj 1,000 ML IV.CONT SCH ×3 (03:04→21:04)
[2018-07-09] MEDS: Insulin NovoLOG Aspart Correctional Sugar Inj SQ SCH ×4 (10:13→22:19)
[2018-07-09] MEDS: Senna/Docusate Sodium 8.6/50 MG Tablet PO SCH ×3 (10:13→20:37)
--- NOTE | 2018-07-09 13:13 | P.PNPAL ---
Reason for Visit Reason for visit: a. To assist with evaluation and management of symptoms including: Confusion, agitation, anorexia b. To assist medical decision maker(s) with: better understanding of current medical conditions; weighing benefits/burdens of medical treatment options; making medical treatment decisions. Subjective Subjective/Interval History: This is an 78-year-old -[place] female who was brought to the emergency room via [facility] after she was found to have altered mental status at [facility] where she had been undergoing rehabilitation. The staff was unable to specify when she was last seen at her baseline of awake and talking. [facility] found her awake but unable to follow commands or answer questions. Staff reports that she had begun refusing all medications, food and drink several days ago with plans to transfer to hospice. In the ED she was noted to return to voice and groan in response to painful stimuli. A DO NOT RESUSCITATE order was found in her paperwork from the facility. Patient was unable to provide any history. Patient seen today for follow-up of symptom management for confusion, agitation , anorexia. Upon admission, patient was made n.p.o. but given a diabetic diet on 07/08. She declined lunch in spite of having been n.p.o. the prior 24 hours, with a history of refusing meals at [facility] for several days previous. She reportedly did have some of her dinner that evening, however again refused breakfast as well as her medications this morning. She has been noted to have a decline in weight which was a maximum of 211 pounds on 05/21/2018, with a weight of 184.15 pounds on 07/08, a loss of over 27 pounds in 18 days. She remains confused and lethargic, not responding to verbal or tactile stimuli , beyond opening her eyes. She does not make eye contact, focus or track. CT of the head on admission was negative. She has a history of progressively worsening dementia. She has a urinary tract infection and received 1 g IV on on admission. C&S returned indicating a Klebsiella pneumoniae UTI, her third UTI since 05/15 when she was admitted with another Klebsiella pneumoniae UTI, showing sensitivity to cephalosporins, ertapenem, imipenem, Zosyn and Bactrim. She had become mildly agitated with IV line and pulled out her IV. She is refusing all meds today. . Advance Directives Living Will: Completed, but not made available Health Care Surrogate: Completed, but not made available Durable Power of Song And Dance Performer: Completed, but not made available Health Care Surrogate Name and Number: Cat Pascual Objective Vital Signs: Vital Signs 07/08/18 16:00 07/08/18 20:00 07/09/18 00:00 Temperature 98.0 F 98.2 F Pulse Rate 97 H 93 H 95 H Respiratory Rate 16 18 16 Blood Pressure 150/79 H 175/91 H 169/89 H Pulse Oximetry 98 96 96 07/09/18 04:00 07/09/18 08:00 Temperature 97.7 F 97.5 F L Pulse Rate 95 H 96 H Respiratory Rate 12 18 Blood Pressure 159/75 H 195/85 H Pulse Oximetry 97 95 Physical Exam: CONSTITUTIONAL/GENERAL: This is an overweight patient, in no apparent distress. TUBES/LINES/DRAINS: Patient pulled out her IV. CARDIOVASCULAR: Regular rate and rhythm without murmurs, gallops, or rubs. No JVD. Peripheral pulses symmetric. RESPIRATORY/CHEST: Symmetric, unlabored respirations. Clear to auscultation. Breath sounds equal bilaterally. No wheezes, rales, or rhonchi. GASTROINTESTINAL: Abdomen soft, nondistended. No hepato-splenomegaly, or palpable masses. No guarding. Bowel sounds present. GENITOURINARY: Without palpable bladder distension. MUSCULOSKELETAL: Extremities without clubbing, cyanosis, or edema. No joint tenderness or effusion noted. No calf tenderness. No mottling or clubbing. NEUROLOGICAL: Lethargic, opens eyes to touch but does not track, focus or interact, falls back to sleep. PSYCHIATRIC: Lethargic. . Diagnostic Tests Laboratory: Laboratory Results - last 72 hr 07/07/18 07/07/18 07/07/18 16:43 16:50 16:58 WBC 9.8 RBC 4.67 Hgb 14.8 Hct 45.8 MCV 98.2 MCH 31.8 MCHC 32.4 RDW 14.8 Plt Count 187 MPV 10.6 Neut % (Auto) 88.8 H Lymph % (Auto) 6.6 L Estill % (Auto) 4.1 Eos % (Auto) 0.2 Baso % (Auto) 0.3 Neut # (Auto) 8.7 H Lymph # (Auto) 0.6 L Estill # (Auto) 0.4 Eos # (Auto) 0.0 Baso # (Auto) 0.0 WBC Differential . Differential Comment Auto diff final Sodium Potassium Chloride Carbon Dioxide Anion Gap BUN Creatinine Estimated GFR POC Glucose 454 H* Random Glucose Lactic Acid 4.2 H* Calcium Magnesium Total Bilirubin AST ALT Alkaline Phosphatase Troponin I Total Protein Albumin Urine Color Urine Clarity Urine pH Ur Specific Weston Urine Protein Urine Glucose (UA) Urine Ketones Urine Occult Blood Urine Nitrate Urine Bilirubin Urine Urobilinogen Ur Leukocyte Esterase Urine RBC Urine WBC Ur Squamous Epith Cells Urine Bacteria Micro UA Comment Ur Microscopic Review Urine Culture Comments 07/07/18 07/07/18 07/07/18 16:58 17:45 19:38 WBC RBC Hgb Hct MCV MCH MCHC RDW Plt Count MPV Neut % (Auto) Lymph % (Auto) Estill % (Auto) Eos % (Auto) Baso % (Auto) Neut # (Auto) Lymph # (Auto) Estill # (Auto) Eos # (Auto) Baso # (Auto) WBC Differential Differential Comment Sodium 152 H Potassium 4.6 Chloride 114 H Carbon Dioxide 26.0 Anion Gap 12 BUN 108 H Creatinine 3.99 H Estimated GFR 13 L POC Glucose 419 H Random Glucose 511 H* Lactic Acid Calcium 10.1 Magnesium 3.1 H Total Bilirubin 1.6 H AST 96 H ALT 125 H Alkaline Phosphatase 118 H Troponin I 0.14 H Total Protein 9.1 H Albumin 3.8 Urine Color Yadira Urine Clarity Turbid H Urine pH 5.0 Ur Specific Weston 1.018 Urine Protein 100 H Urine Glucose (UA) 50 Urine Ketones Negative Urine Occult Blood Small H Urine Nitrate Negative Urine Bilirubin Negative Urine Urobilinogen 4 or greater Ur Leukocyte Esterase Moderate H Urine RBC 15 H Urine WBC Ur Squamous Epith Cells 19 Urine Bacteria Many H Micro UA Comment Cath-culture ind Ur Microscopic Review Not Reportable Urine Culture Comments Cath-cult indicated 07/07/18 07/07/18 07/08/18 19:40 21:07 00:59 WBC RBC Hgb Hct MCV MCH MCHC RDW Plt Count MPV Neut % (Auto) Lymph % (Auto) Estill % (Auto) Eos % (Auto) Baso % (Auto) Neut # (Auto) Lymph # (Auto) Estill # (Auto) Eos # (Auto) Baso # (Auto) WBC Differential Differential Comment Sodium Potassium Chloride Carbon Dioxide Anion Gap BUN Creatinine Estimated GFR POC Glucose 393 H 200 H Random Glucose Lactic Acid 4.0 H Calcium Magnesium Total Bilirubin AST ALT Alkaline Phosphatase Troponin I Total Protein Albumin Urine Color Urine Clarity Urine pH Ur Specific Weston Urine Protein Urine Glucose (UA) Urine Ketones Urine Occult Blood Urine Nitrate Urine Bilirubin Urine Urobilinogen Ur Leukocyte Esterase Urine RBC Urine WBC Ur Squamous Epith Cells Urine Bacteria Micro UA Comment Ur Microscopic Review Urine Culture Comments 07/08/18 07/08/18 07/08/18 08:37 13:03 17:33 WBC RBC Hgb Hct MCV MCH MCHC RDW Plt Count MPV Neut % (Auto) Lymph % (Auto) Estill % (Auto) Eos % (Auto) Baso % (Auto) Neut # (Auto) Lymph # (Auto) Estill # (Auto) Eos # (Auto) Baso # (Auto) WBC Differential Differential Comment Sodium Potassium Chloride Carbon Dioxide Anion Gap BUN Creatinine Estimated GFR POC Glucose 233 H 232 H 226 H Random Glucose Lactic Acid Calcium Magnesium Total Bilirubin AST ALT Alkaline Phosphatase Troponin I Total Protein Albumin Urine Color Urine Clarity Urine pH Ur Specific Weston Urine Protein Urine Glucose (UA) Urine Ketones Urine Occult Blood Urine Nitrate Urine Bilirubin Urine Urobilinogen Ur Leukocyte Esterase Urine RBC Urine WBC Ur Squamous Epith Cells Urine Bacteria Micro UA Comment Ur Microscopic Review Urine Culture Comments 07/09/18 08:54 WBC RBC Hgb Hct MCV MCH MCHC RDW Plt Count MPV Neut % (Auto) Lymph % (Auto) Estill % (Auto) Eos % (Auto) Baso % (Auto) Neut # (Auto) Lymph # (Auto) Estill # (Auto) Eos # (Auto) Baso # (Auto) WBC Differential Differential Comment Sodium Potassium Chloride Carbon Dioxide Anion Gap BUN Creatinine Estimated GFR POC Glucose 253 H Random Glucose Lactic Acid Calcium Magnesium Total Bilirubin AST ALT Alkaline Phosphatase Troponin I Total Protein Albumin Urine Color Urine Clarity Urine pH Ur Specific Weston Urine Protein Urine Glucose (UA) Urine Ketones Urine Occult Blood Urine Nitrate Urine Bilirubin Urine Urobilinogen Ur Leukocyte Esterase Urine RBC Urine WBC Ur Squamous Epith Cells Urine Bacteria Micro UA Comment Ur Microscopic Review Urine Culture Comments Result Diagrams: 07/07/18 16:58 07/07/18 16:58 Microbiology: Microbiology 07/07/18 17:45 Urine Culture - Final Catheterized Urine Klebsiella pneumoniae Imaging: Chest X-Ray 07/07/18 16:49 CONCLUSION: No acute cardiopulmonary disease. Head CT 07/07/18 16:49 CONCLUSION: 1. Diffuse cerebral atrophy. 2. Moderate periventricular and subcortical white matter small vessel ischemic changes bilaterally. 3. No acute infarct, acute hemorrhage, midline shift or extra-axial fluid collections. . Abdomen/Pelvis CT 07/07/18 19:05 CONCLUSION: 1. Ill-defined stranding/soft tissue fullness in the region of the pancreatic head extending cephalad to the periportal region. This is incompletely evaluated due to lack of IV and oral contrast. Differential considerations include pancreatitis in the appropriate clinical setting. Clinical correlation is recommended. 2. Mild to moderate superior endplate compression fracture of L2 vertebral body of unknown chronicity given lack of appropriate prior exams. 3. Indeterminate density 1.3 cm left adrenal mass. This can be further characterized with adrenal mass protocol MRI or CT exam on an outpatient basis as clinically appropriate. 4. Additional ancillary findings, as above. Assessment and Plan Pertinent Non-Medical Issues: Psychosocial: She was born in [place] has been to her for many decades. They have no children. 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 Spiritual: Drug Abuse Social Worker available. Legal: Cat is her medical and financial power of trade mark attorney. Ethical issues impacting care: Discharge home would be questionable as the would be unable to care for her without additional help. . Important Contacts: POA: Cat Pascual : Danny Robert Unknown relationship: Barry Rossi . Prognosis: Her prognosis is guarded. She is having more frequent hospital admissions and has been at 3 separate rehab's in the last month with no significant progress. She is of advanced age with progressively worsening dementia and has stopped eating and drinking over the last week. On presentation she was dehydrated in acute renal compromise a blood sugar over 500 and a urinary tract infection. She is likely to have recurrent decline, complications and readmissions. She would be hospice appropriate if goals were consistent. . Code Status: No Code DNR Plan: PLAN: Legal decision maker: Patient is not capacitated for decision-making and it is unlikely that she will regain capacity. She has appointed her friend, Cat Pascual as her medical and financial POA. Goals: Comfort oriented. CODE STATUS: DO NOT RESUSCITATE. SYMPTOMS: * Confusion, agitation: She has baseline dementia which appears to have been progressing. At this time she is essentially nonverbal, refusing food, fluid, medications. She had become agitated with the IV line and pulled her IV out. Her mental status is worsening today and refused breakfast or medications this morning. * Anorexia: She has been refusing to eat and drink for [facility], however per her POA, it has been close to a month that her oral intake has drifted down from 1 meal a day to now virtually nothing. This appears to be progressive dementia. Family is considering hospice. Palliative care will continue to follow the patient during hospital course as condition evolves, to assist patient/decision-maker with understanding of their medical conditions, weighing benefits/burdens of treatment options, for clarification of goals of treatment. Additionally will assist with any symptoms of palliative concern. . Attestation Attestation: To help prompt me to consider important information that might be impacting today's encounter and assessment, information from prior notes written by myself or my colleagues may have been "brought forward" into today's note. My signature on this note, however, is an attestation that I personally performed the exam, history, and/or decision-making noted today, and, unless otherwise indicated, the interactions with patient, family, and staff as well as the review of records all occurred today. I also attest that the listed assessment and stated plan reflect my best clinical judgment today based on the combination of historical information, prior notes, and today's exam/ interactions. When time spent is documented, it refers only to time spent today by the signer, or if indicated, combined time spent today by collaborating physician/nurse practitioner. .
--- NOTE | 2018-07-09 18:04 | P.PN ---
Physical Exam Vital signs: Vital Signs 07/08/18 20:00 07/09/18 00:00 07/09/18 04:00 Temperature 98.0 F 98.2 F 97.7 F Pulse Rate 93 H 95 H 95 H Respiratory Rate 18 16 12 Blood Pressure 175/91 H 169/89 H 159/75 H Pulse Oximetry 96 96 97 07/09/18 08:00 07/09/18 12:00 07/09/18 16:00 Temperature 97.5 F L 96.9 F L Pulse Rate 96 H 89 Respiratory Rate 18 16 Blood Pressure 195/85 H 201/101 H 138/78 Pulse Oximetry 95 95 Narrative: GENERAL: Elderly black female in no acute distress, confused with dementia; limited response SKIN: Focused skin assessment warm and dry. CARDIOVASCULAR: Regular rate and rhythm. RESPIRATORY: No obvious rhonchi or wheezing. Clear to auscultation. Breath sounds equal bilaterally. GASTROINTESTINAL: Abdomen soft, non-tender, nondistended. BS normal. MUSCULOSKELETAL: Extremities without clubbing, cyanosis, or edema. No obvious deformities. NEUROLOGICAL: Drowsy, not answering questions. No focal neurologic deficits. Moving both upper and lower extremities spontaneously. - Urinary Catheter Management Straight Cath placed during this visit: yes, but has since been removed by the nurse Reason for continuing: Not indwelling catheter Insertion date: 07/07/18 Insertion time: 17:48 Removal date: 07/07/18 Removal time: 17:48 Results - Labs CBC & Chem 7: 07/07/18 16:58 07/07/18 16:58 Laboratory Results - last 24 hr 07/09/18 07/09/18 07/09/18 08:54 12:03 17:48 POC Glucose 253 H 231 H 168 H Microbiology 07/07/18 17:45 Catheterized Urine Urine Culture - Final Klebsiella pneumoniae Assessment and Plan - Assessment (1) Encephalopathy Code(s): G93.40 - Encephalopathy, unspecified Status: Acute (2) UTI (urinary tract infection) Code(s): N39.0 - Urinary tract infection, site not specified Status: Acute (3) PRISCILA (acute kidney injury) Code(s): N17.9 - Acute kidney failure, unspecified Status: Acute (4) DNR (do not resuscitate) Code(s): Z66 - Do not resuscitate Status: Acute - Plan This is an 78-year-old DNR female with a PMH of HTN, Dementia, DM and A. fib who was sent to the ER from [facility] for AMS. A/P: 1. Encephalopathy: progressive deterioration per report from [facility], likely secondary to advanced dementia, failure to thrive and acute UTI. CT Head w/ no acute findings. 2. PRISCILA: Creatinine 3.99, previously 1.23 on 05/28/18, - IVF for hydration 3. UTI: -s/p Rocephin in ER, will continue w/ IV Abx, follow up cultures 4. Hospice: -Patient evaluated by hospice and not found to be appropriate for care center. -Family wishes for comfort measures only; palliative consult ; DNR: Confirmed. Code Status updated. DVT Prophylaxis: No prophylaxis as pt DNR/Hospice and Comfort Measures Discharge planning: TBD (2) UTI (urinary tract infection) Qualifiers: Urinary tract infection type: acute cystitis Hematuria presence: with hematuria Qualified Code(s): N30.01 - Acute cystitis with hematuria
[2018-07-10 04:30] LABS: Baso % (Auto) 0.1 % (0.0-2.0); Eos % (Auto) 0.1 % (0.0-4.0); Hematocrit 42.6 % (35.0-46.0); Hemoglobin 13.6 gm/dL (11.6-15.3); Lymph # (Auto) 0.9 th/mm3 (1.0-4.8); Lymph % (Auto) 12.1 % (9.0-44.0); Mean Corpuscular Hemoglobin 31.5 pg (27.0-34.0); Mean Corpuscular Volume 98.5 fL (80.0-100.0); Mean Platelet Volume 11.3 fL (7.0-11.0); Mono # (Auto) 0.4 th/mm3 (0.0-0.9); Mono % (Auto) 5.8 % (0.0-8.0); Neut % (Auto) 81.9 % (16.0-70.0); Platelet Count 123 th/mm3 (150-450); Red Blood Count 4.32 mil/mm3 (4.00-5.30); Red Cell Distribution Width 15.4 % (11.6-17.2); White Blood Count 7.3 th/mm3 (4.0-11.0)
[2018-07-10 07:51] LABS: Calcium 9.5 mg/dL (8.5-10.1); Carbon Dioxide 28.2 meq/L (21.0-32.0)
[2018-07-10 10:23] LABS: Calcium 9.6 mg/dL (8.5-10.1); Carbon Dioxide 27.9 meq/L (21.0-32.0)
[2018-07-10] MEDS: Senna/Docusate Sodium 8.6/50 MG Tablet PO SCH (11:50)
[2018-07-10] MEDS: Insulin NovoLOG Aspart Correctional Sugar Inj SQ SCH ×2 (11:50→12:15)
[2018-07-10] MEDS: Sod Chloride 0.9% Inj 1,000 ML IV.CONT SCH (11:51)
--- NOTE | 2018-07-10 13:15 | P.PNIM ---
Subjective Interval history: Patient is lying in bed. Withdraws to touch but does not open eyes. Swats away nursing attempt to draw blood for labs or place IV. Shakes her head "no" to all questions. Physical Exam Vital signs: Last Vital Signs Temp 98.1 F 07/10/18 12:46 Pulse 94 H 07/10/18 12:46 Resp 18 07/10/18 12:46 BP 179/86 H 07/10/18 12:46 Pulse Ox 95 07/10/18 12:46 Intake & Output 07/08/18 07/09/18 07/10/18 07/11/18 06:59 06:59 06:59 06:59 Intake Total 2750 / 2750 0 / 0 Balance 2750 / 2750 0 / 0 Weight 83.9 kg Narrative: GENERAL: Elderly black female in no acute distress, confused with dementia; limited response SKIN: Focused skin assessment warm and dry. CARDIOVASCULAR: Regular rate and rhythm. RESPIRATORY: No obvious rhonchi or wheezing. Clear to auscultation. Breath sounds equal bilaterally. GASTROINTESTINAL: Abdomen soft, non-tender, nondistended. BS normal. MUSCULOSKELETAL: Extremities without clubbing, cyanosis, or edema. No obvious deformities. NEUROLOGICAL: Drowsy, not answering questions. No focal neurologic deficits. Moving both upper and lower extremities spontaneously. Urinary Catheter Management Straight: Cath placed during this visit: yes, but has since been removed by the nurse Insertion date: 07/07/18 Insertion time: 17:48 Removal date: 07/07/18 Removal time: 17:48 Results Labs CBC & Chem 7: 07/10/18 03:53 07/10/18 09:47 Labs: Microbiology 07/07/18 17:45 Catheterized Urine Urine Culture - Final Klebsiella pneumoniae Assessment and Plan (1) Encephalopathy: Code(s): G93.40 - Encephalopathy, unspecified Status: Acute (2) UTI (urinary tract infection): Code(s): N39.0 - Urinary tract infection, site not specified Status: Acute (3) PRISCILA (acute kidney injury): Code(s): N17.9 - Acute kidney failure, unspecified Status: Acute (4) DNR (do not resuscitate): Code(s): Z66 - Do not resuscitate Status: Acute Plan This is an 78-year-old DNR female with a PMH of HTN, Dementia, DM and A. fib who was sent to the ER from [facility] for AMS. A/P: 1. Encephalopathy: progressive deterioration per report from [facility], likely secondary to advanced dementia, failure to thrive and acute UTI. CT Head w/ no acute findings. 2. PRISCILA and hyper natremia: Creatinine 3.99, previously 1.23 on 05/28/18, - IVF for hydration; patient removed IV and not allowing replacement. Will do fluid replacement with goal of lowering sodium as soon as able. 3. UTI: -s/p Rocephin in ER, will continue w/ IV Abx, follow up cultures 4. Hospice: -Patient to transfer to hospice care center today -Family wishes for comfort measures only; palliative consult ; DNR: Confirmed. Code Status updated. DVT Prophylaxis: No prophylaxis as pt DNR/Hospice and Comfort Measures Progress Note: Quality VTE Deep Vein Thrombosis/Pulmonary Embolism Present on Admission: No _ (1) UTI (urinary tract infection) Qualifiers: Encounter type: Hematuria presence: with hematuria Indwelling urinary catheter type: Urinary tract infection type: acute cystitis Qualified Code(s) : N30.01 - Acute cystitis with hematuria
--- NOTE | 2018-07-10 13:18 | P.DS ---
DS: Providers Date of admission: 07/07/18 19:42 Primary care physician: UNKNOWN Consults: 07/08/18 15:46 HUB Only Consult Order Routine Consulting Provider: Beatriz Rivera 07/08/18 16:11 Consult to Palliative Care Routine Consulting Provider: Benito Suero Reason for Consultation: Clarify goals; requested by case mgt Notified:: Service Spoke with:: MARYJO Date Notified:: 07/08/18 Time Notified:: 16:14 Ordering Provider: TESS Brief History from admission: This is an 78-year-old DNR female with a PMH of HTN, Dementia, DM and A. fib who was sent to the ER from [facility] for AMS. Pt unable to provide any history at this time. Per report, pt has been deteriorating over the last several days, refusing to eat/drink and was scheduled to go to Hospice tomorrow. POA was contacted and confirmed DNR/Hospice, [facility] evaluated pt in the ER, plans for pt to go to Hospice tomorrow after POA arrives to sign paperwork. Pt is comfort measures only, but ok for IV Abx and IVF. BP 187/90, HR 101, O2 sat 97% on RA. CBC unremarkable. Na 152. Creatinine 3.99, previously 1.23 on 05/28/2018. Troponin 0 0.14. BS 511. Lactic Acid 4.2. UA positive for UTI. Exar with no acute findings. CT Head diffuse cerebral atrophy, no acute infarct or hemorrhage. CT Abdomen/Pelvis ill -defined stranding in pancreatic head possibly pancreatitis, 1.3 cm left adrenal mass. S/p IVF, Rocephin in ER. While in ER, pt w/ episode of A-fib w/ RVR, s/p Cardizem IV, now resolved. DS: Diagnosis Discharge Diagnosis (1) Encephalopathy: Status: Acute (2) UTI (urinary tract infection): Status: Acute (3) PRISCILA (acute kidney injury): Status: Acute (4) DNR (do not resuscitate): Status: Acute DS: Summary Patient is an 78-year-old -Citizen [place] female with a past medical history of hypertension, dementia, diabetes and A. fib who was sent to the emergency room from [facility] for altered mental status. She was found to have a UTI on arrival which was treated with Rocephin however her mental status did not improve. Encephalopathy has been progressive per report from Lexie Streeter and is likely secondary to advance dementia and failure to thrive. Hospice was consulted at family's request. Patient initially not found to be appropriate however she continued to deteriorate with increasing kidney failure and hypernatremia as well as increased encephalopathy. Patient discharged to hospice care center with comfort measures only. Time Spent with Patient Total time spent providing and/or coordinating discharge services: Quality: VTE Deep Vein Thrombosis/Pulmonary Embolism Present on Admission: No Exam Narrative Exam Narrative: GENERAL: Elderly black female in no acute distress, confused with dementia; limited response SKIN: Focused skin assessment warm and dry. CARDIOVASCULAR: Regular rate and rhythm. RESPIRATORY: No obvious rhonchi or wheezing. Clear to auscultation. Breath sounds equal bilaterally. GASTROINTESTINAL: Abdomen soft, non-tender, nondistended. BS normal. MUSCULOSKELETAL: Extremities without clubbing, cyanosis, or edema. No obvious deformities. NEUROLOGICAL: Drowsy, not answering questions. No focal neurologic deficits. Moving both upper and lower extremities spontaneously. Results Labs on day of discharge: Labs from last 24 hours 07/10/18 07/10/18 07/10/18 12:12 09:47 06:16 WBC RBC Hgb Hct MCV MCH MCHC RDW Plt Count MPV Neut % (Auto) Lymph % (Auto) [place] % (Auto) Eos % (Auto) Baso % (Auto) Neut # (Auto) Lymph # (Auto) [place] # (Auto) Eos # (Auto) Baso # (Auto) WBC Differential Differential Comment Sodium 170 H* 170 H* Potassium 4.0 4.0 Chloride 133 H 133 H Carbon Dioxide 27.9 28.2 Anion Gap 9 9 BUN 76 H 76 H Creatinine 2.02 H 1.86 H Estimated GFR 29 L 32 L POC Glucose 301 H Random Glucose 302 H 274 H Calcium 9.6 9.5 07/10/18 07/09/18 07/09/18 03:53 21:24 17:48 WBC 7.3 RBC 4.32 Hgb 13.6 Hct 42.6 MCV 98.5 MCH 31.5 MCHC 32.0 RDW 15.4 Plt Count 123 L D MPV 11.3 H Neut % (Auto) 81.9 H Lymph % (Auto) 12.1 [place] % (Auto) 5.8 Eos % (Auto) 0.1 Baso % (Auto) 0.1 Neut # (Auto) 6.0 Lymph # (Auto) 0.9 L [place] # (Auto) 0.4 Eos # (Auto) 0.0 Baso # (Auto) 0.0 WBC Differential . Differential Comment Auto diff final Sodium Potassium Chloride Carbon Dioxide Anion Gap BUN Creatinine Estimated GFR POC Glucose 198 H 168 H Random Glucose Calcium Impressions ITS Impressions Chest X-Ray 07/07/18 16:49 CONCLUSION: No acute cardiopulmonary disease. Head CT 07/07/18 16:49 CONCLUSION: 1. Diffuse cerebral atrophy. 2. Moderate periventricular and subcortical white matter small vessel ischemic changes bilaterally. 3. No acute infarct, acute hemorrhage, midline shift or extra-axial fluid collections. . Abdomen/Pelvis CT 07/07/18 19:05 CONCLUSION: 1. Ill-defined stranding/soft tissue fullness in the region of the pancreatic head extending cephalad to the periportal region. This is incompletely evaluated due to lack of IV and oral contrast. Differential considerations include pancreatitis in the appropriate clinical setting. Clinical correlation is recommended. 2. Mild to moderate superior endplate compression fracture of L2 vertebral body of unknown chronicity given lack of appropriate prior exams. 3. Indeterminate density 1.3 cm left adrenal mass. This can be further characterized with adrenal mass protocol MRI or CT exam on an outpatient basis as clinically appropriate. 4. Additional ancillary findings, as above. Discharge Plan Discharge Disposition Patient Disposition: 51 Hospice/Med Facility Discharge Condition Condition: Critical Discharge Order Discharge Orders: Discharge Order (Routine); Ordered 07/10/18 Ordered By: Sabina Stewart Discharge Details Anticipated Discharge Date: 07/10/18 Physicians Team Primary Care Provider: UNKNOWN, Attending Provider: Austin Hermosillo Other Providers: Lexie Streeter,Agency ; Benito Suero Rxs /Orders / Referrals /Forms Prescriptions: Continue quetiapine [Seroquel] 25 mg Tablet 25 mg PO TID RF: 0 sennosides [Senna Laxative] 8.6 mg Tablet 8.6 mg PO BID RF: 0 donepezil [Aricept] 10 mg Tablet 10 mg PO HS RF: 0 hydralazine 25 mg Tablet 25 mg PO TID RF: 0 dronabinol 2.5 mg Capsule 2.5 mg PO HS RF: 0 amlodipine [Norvasc] 10 mg Tablet 10 mg PO DAILY RF: 0 insulin aspart U-100 [Novolog U-100 Insulin aspart] 100 unit/mL Solution 1 sliding scale dose SUBCUT ACHS RF: 0 gabapentin 100 mg Capsule 100 mg PO TID RF: 0 glipizide 5 mg Tablet 2.5 mg PO BID RF: 0 Referrals: Emiliano Shoemaker MD [Family Provider] - See Instructions UNKNOWN, [Primary Care Provider] - See Instructions Discharge Interventions Interventions: Discharge Planning - Case Management Last Done: 07/08/18 12:17 Status ED Status: Left Department
== END 2018-07-10 14:35 | disposition hospice, inpatient (51) ==
LOC: NEDA 16:37 → NEPC 16:37 → NEPFCDU 22:00
PROVIDERS: ADMIT Hospitalist; ATTEND Hospitalist